=== PATIENT | female | born 1940 | race Caucasian/White ===

== ENCOUNTER 2016-09-20 14:08 | Inpatient (IN) | payer OTHER ==
[~2016-09-20] VITALS: Ht 152.4 cm; Wt 59.9 kg
[2016-09-20] MEDS ORDERED: METHYLPREDNISOLONE 125 MG VIAL IV STA (14:28)
[2016-09-20] MEDS ORDERED: DiphenhydrAMINE HCL 50 MG/ML VIAL IV STA (14:28)
--- NOTE | 2016-09-20 14:33 | EMERGENCY ROOM VISIT NOTE ---
History Report prepared by Megan: Azeem Amezcua Under the Supervision of: Dr. Brennon Talley D.O. First contact with patient: 14:17 Chief Complaint: PAIN (GENERALIZED) Stated Complaint: LEGS SWELLING, WHOLE BODY PAIN History of Present Illness The patient is a 76 year old female who presents to the Emergency Room with complaints of worsening swelling of her lower extremities throughout the week. The patient has had swelling of the extremities for a while which started worsening this week. She is also concerned over a "lump" on the right side of her abdomen. She has been experiencing generalized body aches and nausea. She has been vomiting up what she describes as saliva. She has occasionally stabbing chest pains and coughing. The patient denies shortness of breath, black or bloody stools. The patient was seen by a home health nurse who recommended that she come to the ED. The patient has a history of alcoholic cirrhosis. She stopped drinking last October after becoming symptomatic and vomiting blood. Source of History: patient Onset: this week Position: leg (bilateral) Quality: other (swelling) Timing: worsening Associated Symptoms: + chest pain, + cough, + nausea, + vomiting, No SOB, No hematochezia, No melena Review of Systems See HPI for pertinent positives & negatives. A total of 10 systems reviewed and were otherwise negative. Past Medical & Surgical Medical Problems: (1) Abdominal mass (2) Chest pain (3) Decompensated hepatic cirrhosis (4) Leg edema, left (5) Severe aortic stenosis (6) SOB (shortness of breath) Family History No pertinent family history Social History Smoking Status: Former Smoker Alcohol Use: other (former heavy drinker) Housing Status: lives with family Current/Historical Medications Scheduled Atorvastatin (Lipitor), 20 MG PO HS Folic Acid (Folvite), 1 MG PO DAILY Furosemide (Lasix), 80 MG PO BID Lactulose (Chronulac), 30 ML PO TID Spironolactone (Aldactone), 100 MG PO BID Allergies Coded Allergies: Adhesives (Unverified Allergy, Intermediate, ITCHY, 09/20/16) Iodine (Verified Allergy, Unknown, ., 09/20/16) Milk (Verified Allergy, Unknown, ., 09/20/16) Physical Exam Vital Signs Date Time Temp Pulse Resp B/P Pulse Ox O2 Delivery O2 Flow Rate FiO2 09/20/16 20:42 36.9 90 18 114/56 Room Air 09/20/16 20:36 85 18 114/56 95 09/20/16 20:29 36.9 90 20 121/62 09/20/16 19:48 94 09/20/16 19:45 98 20 09/20/16 19:15 97 21 09/20/16 18:46 90 20 121/62 96 Room Air 09/20/16 18:45 94 16 96 09/20/16 17:30 94 20 115/57 96 Room Air 09/20/16 16:28 99 18 121/52 98 Room Air 09/20/16 15:33 98 09/20/16 14:11 36.9 101 18 119/52 99 Room Air Physical Exam GENERAL: Patient is awake, alert, anxious and uncomfortable appearing. EYES: Scleral icterus noted bilaterally. The pupils are equal round and reactive to light. Extraocular muscles are intact. EARS, NOSE, MOUTH AND THROAT: The nose is without any evidence of any deformity. Mucous membranes are dry tongue is midline NECK: The neck is nontender and supple. RESPIRATORY: Diminished breath sounds at the left base, no tachypnea or conversational dyspnea. CARDIOVASCULAR: Regular rate and rhythm noted there no murmurs rubs or gallops normal S1 normal S2 GASTROINTESTINAL: The abdomen is moderately distended, significant hepatomegaly noted to palpation, tenderness in the right upper quadrant with palpation. Rectal exam revealed brown stool which was trace heme positive MUSCULOSKELETAL/EXTREMITIES: There is no evidence of gross deformity full range of motion is noted in the hips and shoulders SKIN: Jaundice was noted. Significant bilateral lower extremity edema with venous stasis changes noted. NEUROLOGIC: Patient is awake alert and oriented x3. Medical Decision & Procedures ER Provider Diagnostic Interpretation: Radiology results as stated below per my review and radiologist interpretation: ABDOMEN AND PELVIS CT WITH IV AND ORAL CONTRAST CT DOSE: 744.73 mGycm HISTORY: Pain sent by PCP for CT, patient will be pretreated TECHNIQUE: Multiaxial CT images of the abdomen and pelvis were performed following the use of intravenous and oral contrast. COMPARISON STUDY: 07/14/2015 FINDINGS: Lung bases are clear. Cirrhotic liver. Mild splenomegaly area in mild progressive ascites. Probable distended gallbladder. Nonobstructive bowel pattern. Bladder is midline. Mild body wall anasarca area IMPRESSION: 1. Hepatic cirrhosis. 2. Mild splenomegaly. 3. Moderate gallbladder distention. 4. Ascites. 5. Anasarca Electronically signed by: Lance Chavez M.D. 09/20/2016 5:55 PM Dictated Date/Time: 09/20/2016 5:51 PM CHEST ONE VIEW PORTABLE CLINICAL HISTORY: Pain, rating to the abdomen. Cough. COMPARISON STUDY: 07/14/2015 FINDINGS: The heart is borderline enlarged. There is an aortic root stent. There is interstitial thickening. There are equivocal left perihilar airspace opacities. A minimal pneumonitis not be excluded. Radiographic follow-up is recommended. There are no pleural effusions. There is an old right rib fracture.[ IMPRESSION: 1. Cardiomegaly and mild interstitial thickening 2. Equivocal left perihilar airspace opacities. Electronically signed by: Noah Kent M.D. 09/20/2016 2:53 PM Dictated Date/Time: 09/20/2016 2:51 PM Laboratory Results 09/20/16 14:50 Red Blood Count 2.09, Mean Corpuscular Volume 101.4, Mean Corpuscular Hemoglobin 35.4, Mean Corpuscular Hemoglobin Concent 34.9, Mean Platelet Volume 11.4, Neutrophils (%) (Auto) 59.5, Lymphocytes (%) (Auto) 13.5, Monocytes (%) ( Auto) 24.5, Eosinophils (%) (Auto) 0.7, Basophils (%) (Auto) 1.2, Neutrophils # (Auto) 5.84, Lymphocytes # (Auto) 1.33, Monocytes # (Auto) 2.41, Eosinophils # ( Auto) 0.07, Basophils # (Auto) 0.12 09/20/16 14:50 Test 09/20/16 14:50 White Blood Count 9.83 K/uL (4.8-10.8) Red Blood Count 2.09 M/uL (4.2-5.4) Hemoglobin 7.4 g/dL (12.0-16.0) Hematocrit 21.2 % (37-47) Mean Corpuscular Volume 101.4 fL (80-100) Mean Corpuscular Hemoglobin 35.4 pg (25-34) Mean Corpuscular Hemoglobin Concent 34.9 g/dl (32-36) Platelet Count 193 K/uL (130-400) Mean Platelet Volume 11.4 fL (7.4-10.4) Neutrophils (%) (Auto) 59.5 % Lymphocytes (%) (Auto) 13.5 % Monocytes (%) (Auto) 24.5 % Eosinophils (%) (Auto) 0.7 % Basophils (%) (Auto) 1.2 % Neutrophils # (Auto) 5.84 K/uL (1.4-6.5) Lymphocytes # (Auto) 1.33 K/uL (1.2-3.4) Monocytes # (Auto) 2.41 K/uL (0.11-0.59) Eosinophils # (Auto) 0.07 K/uL (0-0.5) Basophils # (Auto) 0.12 K/uL (0-0.2) RDW Standard Deviation 65.5 fL (36.4-46.3) RDW Coefficient of Variation 17.9 % (11.5-14.5) Immature Granulocyte % (Auto) 0.6 % Immature Granulocyte # (Auto) 0.06 K/uL (0.00-0.02) Polychromasia 1+ Echinocytes 1+ Acanthocytes 1+ Schistocytes 1+ Prothrombin Time 18.8 SECONDS (9.0-12.0) Prothromb Time International Ratio 1.7 (0.9-1.1) Activated Partial Thromboplast Time 38.1 SECONDS (21.0-31.0) Partial Thromboplastin Ratio 1.5 Anion Gap 10.0 mmol/L (3-11) Est Creatinine Clear Calc Drug Dose 45.3 ml/min Estimated GFR () 70.2 Estimated GFR (Non- 60.5 BUN/Creatinine Ratio 11.6 (10-20) Calcium Level 8.3 mg/dl (8.5-10.1) Total Bilirubin 13.7 mg/dl (0.2-1) Direct Bilirubin 4.7 mg/dl (0-0.2) Aspartate Amino Transf (AST/SGOT) 53 U/L (15-37) Alanine Aminotransferase (ALT/SGPT) 40 U/L (12-78) Alkaline Phosphatase 164 U/L (45-117) Ammonia 34.0 umol/L (11-32) Total Creatine Kinase 38 U/L (26-192) Creatine Kinase MB 1.0 ng/ml (0.5-3.6) Creatine Kinase MB Ratio 2.6 (0-3.0) Troponin I < 0.015 ng/ml (0-0.045) Total Protein 6.6 gm/dl (6.4-8.2) Albumin 3.1 gm/dl (3.4-5.0) Lipase 529 U/L (73-393) Laboratory results per my review. Medications Administered Medications (Trade) Dose Ordered Sig/Hernandez Route Start Time Stop Time Status Last Admin Dose Admin Methylprednisolone Sodium Succinate (Solu-Medrol IV) 125 mg NOW STAT IV 09/20/16 14:28 09/20/16 14:29 DC 09/20/16 17:21 125 MG Diphenhydramine HCl (Benadryl Inj) 25 mg NOW STAT IV 09/20/16 14:28 09/20/16 14:29 DC 09/20/16 17:21 25 MG Potassium Chloride (Klor-Con M10) 40 meq NOW STAT PO 09/20/16 19:27 09/20/16 19:31 DC 09/20/16 20:28 40 MEQ Furosemide (Lasix Inj) 40 mg NOW STAT IV 09/20/16 19:31 09/20/16 19:32 DC 09/20/16 20:28 40 MG Levofloxacin (Levaquin Tab) 750 mg NOW STAT PO 09/20/16 20:50 09/20/16 20:56 DC 09/20/16 21:25 750 MG ECG Indication: chest pain Rate (beats per minute): 98 Rhythm: normal sinus Findings: LBBB, no ectopy Comparison ECG Date: 2015 Change: no significant change ED Course 1420: The patient was evaluated in room B11b. A complete history and physical examination were performed. 1428: Benadryl 25 mg IV, Solu-Medrol 125 mg IV. 1913: [facility] the [facility] [place] The [facility] will be evaluated. 1919: Updated the patient. Medical Decision Prior records/ancillary studies reviewed. Triage Nursing notes reviewed. Additional history obtained from . The patient's history was concerning for abdominal pain. Differential diagnosis: Etiologies such as appendicitis, diverticulitis, PUD, biliary pathology, UTI, pancreatitis, obstruction, mesenteric ischemia, aortic pathology, infections, inflammatory bowel disease, renal colic, as well as others were entertained. The patient is a 76-year-old female who has a history of alcoholic cirrhosis and ascites who presented to the emergency department for evaluation of anasarca and right upper quadrant abdominal pain. The patient was treated with Solu-Medrol and Benadryl for her iodine allergy prior to the CAT scan. I discussed the patient's laboratory radiographic studies with her. I also discussed her case with her significant other's well. Because of the findings on CAT scan as well as the patient's abnormal laboratory studies and anemia I discussed her case with the on-call [facility] hospitalist. They've agreed to evaluate the patient in the emergency department for further management and disposition. Consults Time Called: 1904 Consulting Physician[facility] Returned Call: 1913 1913: [facility] The patient will be evaluated. Impression Primary Impression: Anasarca Additional Impressions: RUQ abdominal pain Cirrhosis Anemia Hyperbilirubinemia Scribe Attestation The scribe's documentation has been prepared under my direction and personally reviewed by me in its entirety. I confirm that the note above accurately reflects all work, treatment, procedures, and medical decision making performed by me. Departure Information Dispostion Being Evaluated By Hospitalist Referrals Britta Portillo,C.R.N.P. (PCP) Patient Instructions My [facility] Problem Qualifiers Additional Impressions: Cirrhosis Hepatic cirrhosis type: alcoholic cirrhosis Ascites presence: with ascites Qualified Codes: K70.31 - Alcoholic cirrhosis of liver with ascites
[2016-09-20] MEDS ORDERED: FOLI1TAB7 PO (14:44)
[2016-09-20] MEDS ORDERED: FURO80TA63 PO (14:44)
[2016-09-20] MEDS ORDERED: SPIR100T PO (14:44)
[2016-09-20] MEDS ORDERED: ATOR-22 PO (14:44)
[2016-09-20] MEDS ORDERED: LACT10SO17 PO (14:44)
--- NOTE | 2016-09-20 14:55 | DIAGNOSTIC IMAGING REPORT ---
CHEST ONE VIEW PORTABLE CLINICAL HISTORY: Pain, rating to the abdomen. Cough. COMPARISON STUDY: 07/14/2015 FINDINGS: The heart is borderline enlarged. There is an aortic root stent. There is interstitial thickening. There are equivocal left perihilar airspace opacities. A minimal pneumonitis not be excluded. Radiographic follow-up is recommended. There are no pleural effusions. There is an old right rib fracture.[ IMPRESSION: 1. Cardiomegaly and mild interstitial thickening 2. Equivocal left perihilar airspace opacities. Electronically signed by: Noah Kent M.D. 09/20/2016 2:53 PM Dictated Date/Time: 09/20/2016 2:51 PM
[2016-09-20 15:04] LABS: BASO % 1.2 %; BASO ABS # 0.12 K/uL (0-0.2); EOS % 0.7 %; HEMATOCRIT 21.2 % (37-47); IG% 0.6 %; LYMPH % 13.5 %; LYMPH ABS # 1.33 K/uL (1.2-3.4); MEAN CELL VOLUME 101.4 fL (80-100); MEAN CORPUSCULAR HEMOGLOBIN 35.4 pg (25-34); MEAN CORPUSCULAR HGB CONC 34.9 g/dl (32-36); MEAN PLATELET VOLUME 11.4 fL (7.4-10.4); MONO % 24.5 %; NEUT % 59.5 %; PLATELET COUNT 193 K/uL (130-400); RED BLOOD COUNT 2.09 M/uL (4.2-5.4); WHITE BLOOD COUNT 9.83 K/uL (4.8-10.8)
[2016-09-20 15:15] LABS: INR 1.7 (0.9-1.1); PARTIAL THROMBOPLASTIN RATIO 1.5; PROTHROMBIN TIME (PATIENT) 18.8 SECONDS (9.0-12.0)
[2016-09-20] MEDS ORDERED: OPTIRAY 320 IV PRN (15:15)
[2016-09-20 15:29] LABS: ACANTHOCYTES 1+; COMPLETE YES; ECHINOCYTES 1+; POLYCHROMASIA 1+; SCHISTOCYTES 1+
[2016-09-20 15:39] LABS: ALT/SGPT 40 U/L (12-78); AST/SGOT 53 U/L (15-37); BLOOD UREA NITROGEN 11 mg/dl (7-18); BUN/CREATININE RATIO 11.6 (10-20); CALCIUM 8.3 mg/dl (8.5-10.1); CARBON DIOXIDE 25 mmol/L (21-32); CHLORIDE 94 mmol/L (98-107); CREATININE 0.93 mg/dl (0.60-1.20); GLUCOSE 154 mg/dl (70-99); POTASSIUM 3.6 mmol/L (3.5-5.1); SODIUM 129 mmol/L (136-145)
[2016-09-20 15:40] LABS: ALKALINE PHOSPHATASE 164 U/L (45-117); CKMB/CK RATIO 2.6 (0-3.0)
[2016-09-20] MEDS ORDERED: METHYLPREDNISOLONE 125 MG VIAL ONE (17:25)
[2016-09-20] MEDS ORDERED: DiphenhydrAMINE HCL 50 MG/ML VIAL ONE (17:25)
--- NOTE | 2016-09-20 17:58 | DIAGNOSTIC IMAGING REPORT ---
ABDOMEN AND PELVIS CT WITH IV AND ORAL CONTRAST CT DOSE: 744.73 mGycm HISTORY: Pain sent by PCP for CT, patient will be pretreated TECHNIQUE: Multiaxial CT images of the abdomen and pelvis were performed following the use of intravenous and oral contrast. COMPARISON STUDY: 07/14/2015 FINDINGS: Lung bases are clear. Cirrhotic liver. Mild splenomegaly area in mild progressive ascites. Probable distended gallbladder. Nonobstructive bowel pattern. Bladder is midline. Mild body wall anasarca area IMPRESSION: 1. Hepatic cirrhosis. 2. Mild splenomegaly. 3. Moderate gallbladder distention. 4. Ascites. 5. Anasarca Electronically signed by: Lance Chavez M.D. 09/20/2016 5:55 PM Dictated Date/Time: 09/20/2016 5:51 PM
[2016-09-20] MEDS ORDERED: FUROSEMIDE INJ 40 MG in SYRINGE 0 ML IV STA ×2 (19:26→21:40)
[2016-09-20] MEDS ORDERED: POTASSIUM CHLORIDE 10 MEQ TABCR PO STA (19:27)
[2016-09-20] MEDS ORDERED: FUROSEMIDE 40 MG/4 ML VIAL IV STA (19:31)
[2016-09-20 20:29] VITALS: BP 121/62; PULSE 90; TEMP 36.9; BMI 28.8
[2016-09-20 20:42] VITALS: BP 114/56; PULSE 90; TEMP 36.9; Ht 152.4 cm; Wt 59.9 kg
[2016-09-20] MEDS ORDERED: LEVOFLOXACIN CONSULT ACTIVE PRN (20:45)
[2016-09-20] MEDS ORDERED: ACETAMINOPHEN 325 MG TAB PO PRN (20:45)
[2016-09-20] MEDS ORDERED: LEVOFLOXACIN 750 MG TAB PO STA (20:50)
[2016-09-20 21:11] VITALS: BP 113/56; PULSE 88; TEMP 37; O2SAT 96
[2016-09-20] MEDS ORDERED: FUROSEMIDE 80 MG TAB PO ONE (21:29)
[2016-09-20] MEDS ORDERED: LACTULOSE SYRUP 30 GM/45 ML UDP PO ONE (21:29)
[2016-09-20] MEDS ORDERED: MoRPHine SULFATE 4 MG/ML 1 ML CARP\\VIAL IV PRN (21:30)
[2016-09-20] MEDS ORDERED: LORAZEPAM 2 MG/ML 1 ML VIAL IV PRN (21:30)
[2016-09-20] MEDS ORDERED: TRAMADOL HCL 50 MG TAB PO PRN (21:30)
[2016-09-20] MEDS ORDERED: ONDANSETRON INJ 2 MG/ML 2 ML VIAL IV PRN (21:30)
[2016-09-20] MEDS ORDERED: POTASSIUM CHLORIDE 10 MEQ TABCR PO ONE (22:00)
[2016-09-20] MEDS ORDERED: THIAMINE HCL INJ 100 MG in SYRINGE 9 ML IV STA (22:45)
[2016-09-20] MEDS ORDERED: THIAMINE HCL 100 MG/ML 2 ML VIAL IV ONE (22:45)
[2016-09-21 00:24] VITALS: BP 112/56; PULSE 91; TEMP 36.5; O2SAT 97
--- NOTE | 2016-09-21 01:22 | DIAGNOSTIC IMAGING REPORT ---
ULTRASOUND BILATERAL LOWER EXTREMITY VENOUS CLINICAL HISTORY: Leg swelling. COMPARISON STUDY: Bilateral lower extremity venous ultrasound dated 07/14/2015. TECHNIQUE: Real-time, grayscale, and color Doppler sonography of the deep veins of the right and left lower extremity was performed from the inguinal crease to the calf. Compression and augmentation were utilized. FINDINGS: There is no sonographic evidence of deep venous thrombosis identified in the right or left lower extremity. The common femoral, superficial femoral, and popliteal veins are patent and normally compressible bilaterally. The greater saphenous vein and the profunda femoris vein at the junction with the common femoral vein are clear in both legs. The visualized calf veins are patent bilaterally. Soft tissue edema is present in both legs. IMPRESSION: There is no sonographic evidence of deep venous thrombosis identified in the right or left lower extremity. Electronically signed by: Don Abel M.D. 09/21/2016 1:20 AM Dictated Date/Time: 09/21/2016 1:19 AM
--- NOTE | 2016-09-21 01:29 | HISTORY & PHYSICAL EXAMINATION ---
DATE OF ADMISSION: 09/20/2016 PRIMARY CARE PHYSICIAN: Miss Callejas FABI Portillo of [facility]. Hx obtained from px and records. CHIEF COMPLAINT: Abdominal pain, distention, and leg swelling. HISTORY OF PRESENT ILLNESS: Medical history significant for alcoholic cirrhosis, chronic anemia (baseline hemoglobin of 7), chronic diastolic heart failure, EF of 70% (2017). history of chronic left bundle-branch block, past tobacco abuse, sp TAVR. History of esophageal varices per records. Recent confinement at [facility] last 08/2015 for alcoholic cirrhosis, alcohol withdrawal, severe , and heart failure. Patient subsequently transferred to [facility]. Subsequently underwent TAVR. Recent confinement at [facility] last month for hypotension, decompensated cirrhosis, renal failure. Subsequently discharged to [facility] for rehab. As per note, the patient noncompliant at rehab facility. Refused blood transfusion, etc. Deemed competent by psychiatry. Patient has been home the last 2 weeks with home health services. She had a followup with her PCP last on 09/10/2016. Patient complaining of leg swelling, worse as the day goes on. Claims to be compliant with medications and abstinent from alcohol. As per note, the patient declined lab work. Last week, increased swelling of the lower extremities with shooting pain, increased abdominal distention and pain, more on the right, some aches, no fever, some chills. No chest pain, no shortness of breath. Cough symptoms productive of clear sputum of one day duration. Denies aspiration. Denies emesis, black/bloody stools. Home health nurse sent her to the Emergency Room. Patient claims "she was told to drink a lot of water by people." Could be drinking more than 2 liters a day. MEDICAL HISTORY: As above. EGD from 11/2015 showed esophageal varices, portal hypertensive gastropathy, hiatal hernia. SURGERIES: Hysterectomy, section, TAVR HOME MEDICATIONS: Include Lipitor, Folvite, Lasix, lactulose, Aldactone. ALLERGIES: TO IODINE, MILK. FAMILY HISTORY: Heart disease. PERSONAL AND SOCIAL HISTORY: Past tobacco abuse. Has not been drinking in months. REVIEW OF SYSTEMS: As per HPI, all other ROS negative. PHYSICAL EXAMINATION: VITAL SIGNS: Blood pressure was noted to be 121/50, pulse rate 99, RR 18, temperature 36.9, sats 96 on room air. GENERAL: Noted to be chronically ill. No respiratory distress. Anxious. SKIN: Pallor. HEENT: Pale palpebral conjunctivae. Dry mucosa. NECK: No JVD. Supple. CHEST: Decreased breath sounds. HEART: Systolic murmur. ABDOMEN: distension. Some tenderness on the right. fluid wave EXTREMITIES: Bilateral LE edema. some tenderness NEUROLOGIC: No gross focality. LABORATORY DATA: Hemoglobin was noted to be 7.4, hematocrit 21.2, white cell count 9.8, platelets 193. Sodium 129, potassium 3.6, chloride 94, CO2 25, BUN 11, creatinine 0.9, glucose 164. Total bilirubin 13.7, direct bilirubin 4.7, alkaline phosphatase 164. Ammonia was 34. Chest x-ray, some congestion. CT abdomen and pelvis showed hepatic cirrhosis, splenomegaly, gallbladder distention, ascites, anasarca. EKG, left bundle-branch block. Hemoccult done in the ER was positive. ASSESSMENT: 1. Decompensated cirrhosis hx ETOH cirrhosis px claims she was told by providers to drink plenty of fluids claims to be compliant w/ ETOH abstinence and home diuretic regimen 2. Painful ascites, possible spontaneous bacterial peritonitis, no sepsis. 3. duane leg swelling secondary to chronic liver disease rule out deep vein thrombosis. 4. Chronic anemia, occult gastrointestinal bleed history of esophageal varices hemoglobin at baseline. 5. Past tobacco and alcohol abuse. 6. History of aortic stenosis sp TAVR 7. Hx chronic diastolic HF, pulm congestion on CXR 2 anasarca 2 to liver dse 8. chronic LBBB 9. hyponatremia 2 to cirrhosis. PLAN: GMF continue diuretic therapy. Initial fluid restriction at 2L. Diagnostic and therapeutic paracentesis. Levaquin for possible SBP for now (Cefotaxime not available.) GI consult RE decompensated cirrhosis, ascites. ff sodium, hyponatremia banda, may need Nephrology eval if w/ worsening DVT prophylaxis, SCDs RE occult GI bleed. Full code. Patient requests to follow up with a new primary care provider at [facility] upon discharge. MTDD
[2016-09-21 06:19] LABS: BASO % 0.2 %; BASO ABS # 0.01 K/uL (0-0.2); HEMATOCRIT 21.6 % (37-47); IG% 0.8 %; LYMPH % 11.4 %; LYMPH ABS # 0.56 K/uL (1.2-3.4); MEAN CELL VOLUME 101.4 fL (80-100); MEAN CORPUSCULAR HEMOGLOBIN 35.2 pg (25-34); MEAN CORPUSCULAR HGB CONC 34.7 g/dl (32-36); MEAN PLATELET VOLUME 11.7 fL (7.4-10.4); MONO % 4.9 %; NEUT % 82.7 %; PLATELET COUNT 182 K/uL (130-400); RED BLOOD COUNT 2.13 M/uL (4.2-5.4); WHITE BLOOD COUNT 4.93 K/uL (4.8-10.8)
[2016-09-21 06:54] LABS: URINE APPEARANCE CLEAR (CLEAR); URINE BILIRUBIN NEG (NEG); URINE COLOR DK YELLOW; URINE NITRITE NEG (NEG); URINE SPECIFIC GRAVITY 1.021 (1.000-1.030); UROBILINOGEN NEG (NEG); ZZUR CULT IF INDIC CLEAN CATCH NO
[2016-09-21 06:59] LABS: CALCIUM 8.7 mg/dl (8.5-10.1); CREATININE 0.88 mg/dl (0.60-1.20); POTASSIUM 4.1 mmol/L (3.5-5.1)
[2016-09-21 06:59] LABS: MANUAL MICROSCOPIC REQUIRED? NO; REVIEW REQ? NO
[2016-09-21 07:14] LABS: ACANTHOCYTES 2+; COMPLETE YES
[2016-09-21 07:21] VITALS: BP 117/61; PULSE 91; TEMP 36.3; O2SAT 96
[2016-09-21] MEDS: MULTIVITAMIN TAB PO SCH (08:17)
[2016-09-21] MEDS: THIAMINE HCL 100 MG TAB PO SCH (08:17)
[2016-09-21] MEDS: LACTULOSE SYRUP 30 GM/45 ML UDP PO SCH ×3 (08:18→21:00)
[2016-09-21] MEDS: PANTOprazole SOD 40 MG TAB PO SCH (08:18)
[2016-09-21] MEDS: POTASSIUM CHLORIDE 10 MEQ TABCR PO SCH (08:19)
[2016-09-21] MEDS ORDERED: FUROSEMIDE 80 MG TAB PO SCH (09:00)
[2016-09-21] MEDS ORDERED: SPIRONOLACTONE 100 MG TAB PO SCH (09:00)
--- NOTE | 2016-09-21 14:35 | Medical Consult ---
Consultation Note Date of Service Sep 21, 2016. Consultation Note Reason for consult: Cirrhosis, volume overload HISTORY OF PRESENT ILLNESS: 76 yo female with alcoholic cirrhosis (complicated by vol overload on diuretics s/p tap x 2 per her reort; h/o varices without h/o VB, no h/o HE), h/o s/p TAVR , diastolic CHF s/p recent admission a [facility] for "decompensated cirrhosis," now admit from rehab for worsening volume overload. Pt reports recent weight gain of 10 lbs in the past 2 weeks. She reports persistent slowly progressive pedal edema and abd distention. She reports compliance with her meds, although she sometimes refussu lab work. SHe is not compliant with low Na diet. She denies abd pain to me. She denies orthopnea to me. MEDICAL HISTORY: As above. EGD from 11/2015 showed esophageal varices, portal hypertensive gastropathy, hiatal hernia. SURGERIES: Hysterectomy, section, TAVR HOME MEDICATIONS: Include Lipitor, Folvite, Lasix, lactulose, Aldactone. ALLERGIES: TO IODINE, MILK. FAMILY HISTORY: Heart disease. PERSONAL AND SOCIAL HISTORY: Past tobacco abuse. Has not been drinking in months. REVIEW OF SYSTEMS: As per HPI, all other ROS negative. PHYSICAL EXAMINATION: Date Time Temp Pulse Resp B/P Pulse Ox O2 Delivery O2 Flow Rate FiO2 09/21/16 08:30 Room Air 09/21/16 07:21 36.3 91 16 117/61 96 09/21/16 00:24 36.5 91 20 112/56 97 Room Air 09/21/16 00:00 Room Air 09/20/16 21:11 37.0 88 20 113/56 96 Room Air 09/20/16 20:42 36.9 90 18 114/56 Room Air 09/20/16 20:36 85 18 114/56 95 09/20/16 20:29 36.9 90 20 121/62 09/20/16 19:48 94 09/20/16 19:45 98 20 09/20/16 19:15 97 21 09/20/16 18:46 90 20 121/62 96 Room Air 09/20/16 18:45 94 16 96 09/20/16 17:30 94 20 115/57 96 Room Air 09/20/16 16:28 99 18 121/52 98 Room Air 09/20/16 15:33 98 Appears comfortable, eating lunch. SKIN: + jaundice. HEENT: + mildly icteric sclera. Moist. NECK: No JVD. Supple. CHEST: Decreased breath sounds. HEART: Systolic murmur. RR ABDOMEN: Abd is mod distended but still soft, with central tympany and flank dullness. + spleen tip. + caput. + everted umbilical hernia. EXTREMITIES: Marked Bilateral LE edema with R leg greater than L leg NEUROLOGIC: No gross focality. Mild tremor. No asterixis. LABORATORY DATA: Last 24 Hours Test 09/20/16 14:50 09/21/16 00:54 09/21/16 05:37 09/21/16 06:30 White Blood Count 9.83 K/uL 4.93 K/uL Red Blood Count 2.09 M/uL 2.13 M/uL Hemoglobin 7.4 g/dL 7.5 g/dL Hematocrit 21.2 % 21.6 % Mean Corpuscular Volume 101.4 fL 101.4 fL Mean Corpuscular Hemoglobin 35.4 pg 35.2 pg Mean Corpuscular Hemoglobin Concent 34.9 g/dl 34.7 g/dl Platelet Count 193 K/uL 182 K/uL Mean Platelet Volume 11.4 fL 11.7 fL Neutrophils (%) (Auto) 59.5 % 82.7 % Lymphocytes (%) (Auto) 13.5 % 11.4 % Monocytes (%) (Auto) 24.5 % 4.9 % Eosinophils (%) (Auto) 0.7 % 0.0 % Basophils (%) (Auto) 1.2 % 0.2 % Neutrophils # (Auto) 5.84 K/uL 4.08 K/uL Lymphocytes # (Auto) 1.33 K/uL 0.56 K/uL Monocytes # (Auto) 2.41 K/uL 0.24 K/uL Eosinophils # (Auto) 0.07 K/uL 0.00 K/uL Basophils # (Auto) 0.12 K/uL 0.01 K/uL RDW Standard Deviation 65.5 fL 62.6 fL RDW Coefficient of Variation 17.9 % 17.5 % Immature Granulocyte % (Auto) 0.6 % 0.8 % Immature Granulocyte # (Auto) 0.06 K/uL 0.04 K/uL Polychromasia 1+ Echinocytes 1+ Acanthocytes 1+ 2+ Schistocytes 1+ Prothrombin Time 18.8 SECONDS Prothromb Time International Ratio 1.7 Activated Partial Thromboplast Time 38.1 SECONDS Partial Thromboplastin Ratio 1.5 Sodium Level 129 mmol/L 130 mmol/L 130 mmol/L Potassium Level 3.6 mmol/L 4.1 mmol/L Chloride Level 94 mmol/L 95 mmol/L Carbon Dioxide Level 25 mmol/L 25 mmol/L Anion Gap 10.0 mmol/L 10.0 mmol/L Blood Urea Nitrogen 11 mg/dl 12 mg/dl Creatinine 0.93 mg/dl 0.88 mg/dl Est Creatinine Clear Calc Drug Dose 45.3 ml/min 47.9 ml/min Estimated GFR () 70.2 75.0 Estimated GFR (Non- 60.5 64.7 BUN/Creatinine Ratio 11.6 14.0 Random Glucose 154 mg/dl 161 mg/dl Calcium Level 8.3 mg/dl 8.7 mg/dl Total Bilirubin 13.7 mg/dl 13.1 mg/dl Direct Bilirubin 4.7 mg/dl 4.7 mg/dl Aspartate Amino Transf (AST/SGOT) 53 U/L 48 U/L Alanine Aminotransferase (ALT/SGPT) 40 U/L 38 U/L Alkaline Phosphatase 164 U/L 146 U/L Ammonia 34.0 umol/L Total Creatine Kinase 38 U/L Creatine Kinase MB 1.0 ng/ml Creatine Kinase MB Ratio 2.6 Troponin I < 0.015 ng/ml Total Protein 6.6 gm/dl 6.5 gm/dl Albumin 3.1 gm/dl 2.9 gm/dl Lipase 529 U/L 438 U/L Osmolality 275 mOsm/kg Ethyl Alcohol mg/dL < 3.0 mg/dl Urine Color DK YELLOW Urine Appearance CLEAR Urine pH 5.0 Urine Specific [place] 1.021 Urine Protein NEG Urine Glucose (UA) NEG Urine Ketones NEG Urine Occult Blood NEG Urine Nitrite NEG Urine Bilirubin NEG Urine Urobilinogen NEG Urine Leukocyte Esterase NEG Urine Osmolality 341 mOms/kg Urine Random Sodium 39 mEq/L Chest x-ray, some congestion. CT abdomen and pelvis showed hepatic cirrhosis, splenomegaly, gallbladder distention, ascites, anasarca. EKG, left bundle-branch block. ASSESSMENT: Cirrhosis, volume overload - She likely has volume overload in part related to her cirrhosis; diastolic heart failure and chronic venous stasis may also contribute to her leg edema. I presume that she has been w/u for nephrosis previously, and CT on admission shows no evidence of PVT or HCC. - Plan for LVP on Friday. Please increase diuretics to lasix 140/40 and aldactone to 300 mg. Would anticipate d/c home post paracentesis. -
[2016-09-21] MEDS ORDERED: COUGH DROP (SUGAR FREE) LOZ 24 LOZ/1 BOX ONE (15:11)
[2016-09-21 15:57] VITALS: BP 121/57; PULSE 93; TEMP 36.3; O2SAT 97
--- NOTE | 2016-09-21 15:59 | Progress Note ---
Medicine Progress Note Date & Time of Visit: Sep 21, 2016 at 15:44. Subjective Patient seen and examined. Notes worsening abdominal distension and leg edema. Reports compliance with her outpatient medications, for the most part. Will occasionally miss a 3pm dose of her diuretic, but not frequently. Last use of alcohol was in November 2015. Denies confusion, fevers. Occasional, intermittent episodes of abdominal pain. Objective Last 8 Hrs Date Time Temp Pulse Resp B/P Pulse Ox O2 Delivery O2 Flow Rate FiO2 09/21/16 08:30 Room Air Physical Exam: General-awake; alert; NAD Eyes-EOMI; +scleral icterus Neck-no stridor; trachea midline Lungs-+rhonchi; no crackles Heart-RRR; +murmur Abdomen-soft; distended; NT; nBS Extremities-2+ pitting edema bilaterally; no deformity Neuro-no asterixis Laboratory Results: Last 24 Hours Test 09/21/16 00:54 09/21/16 05:37 09/21/16 06:30 Sodium Level 130 mmol/L 130 mmol/L Osmolality 275 mOsm/kg Ethyl Alcohol mg/dL < 3.0 mg/dl White Blood Count 4.93 K/uL Red Blood Count 2.13 M/uL Hemoglobin 7.5 g/dL Hematocrit 21.6 % Mean Corpuscular Volume 101.4 fL Mean Corpuscular Hemoglobin 35.2 pg Mean Corpuscular Hemoglobin Concent 34.7 g/dl Platelet Count 182 K/uL Mean Platelet Volume 11.7 fL Neutrophils (%) (Auto) 82.7 % Lymphocytes (%) (Auto) 11.4 % Monocytes (%) (Auto) 4.9 % Eosinophils (%) (Auto) 0.0 % Basophils (%) (Auto) 0.2 % Neutrophils # (Auto) 4.08 K/uL Lymphocytes # (Auto) 0.56 K/uL Monocytes # (Auto) 0.24 K/uL Eosinophils # (Auto) 0.00 K/uL Basophils # (Auto) 0.01 K/uL RDW Standard Deviation 62.6 fL RDW Coefficient of Variation 17.5 % Immature Granulocyte % (Auto) 0.8 % Immature Granulocyte # (Auto) 0.04 K/uL Acanthocytes 2+ Potassium Level 4.1 mmol/L Chloride Level 95 mmol/L Carbon Dioxide Level 25 mmol/L Anion Gap 10.0 mmol/L Blood Urea Nitrogen 12 mg/dl Creatinine 0.88 mg/dl Est Creatinine Clear Calc Drug Dose 47.9 ml/min Estimated GFR () 75.0 Estimated GFR (Non- 64.7 BUN/Creatinine Ratio 14.0 Random Glucose 161 mg/dl Calcium Level 8.7 mg/dl Total Bilirubin 13.1 mg/dl Direct Bilirubin 4.7 mg/dl Aspartate Amino Transf (AST/SGOT) 48 U/L Alanine Aminotransferase (ALT/SGPT) 38 U/L Alkaline Phosphatase 146 U/L Total Protein 6.5 gm/dl Albumin 2.9 gm/dl Lipase 438 U/L Urine Color DK YELLOW Urine Appearance CLEAR Urine pH 5.0 Urine Specific [place] 1.021 Urine Protein NEG Urine Glucose (UA) NEG Urine Ketones NEG Urine Occult Blood NEG Urine Nitrite NEG Urine Bilirubin NEG Urine Urobilinogen NEG Urine Leukocyte Esterase NEG Urine Osmolality 341 mOms/kg Urine Random Sodium 39 mEq/L Assessment & Plan Patient is a 76 y/o female with a h/o alcoholic cirrhosis who presents for evaluation of worsening ascites and edema. Alcoholic cirrhosis - GI consulted - given low clinical suspicion for SBP (patient denies abdominal pain, no confusion, afebrile, normal WBC count), discontinued levofloxacin - hold outpatient Lasix dose - start Lasix 40mg IV TID with 25% albumin BID - increase spironolactone to 150mg BID - plan for therapeutic paracentesis on Friday - continue MVI, thiamine and folate - continue lactulose Hyponatremia - 2/2 volume overload from decompensated cirrhosis - continue diuresis Anemia - likely anemia of chronic disease - Hgb stable in the 7's DVT prophylaxis with SCD's Consultants: Gastroenterology Current Inpatient Medications: Current Inpatient Medications Medications (Trade) Dose Ordered Sig/Hernandez Route Start Time Stop Time Status Last Admin Dose Admin Ioversol (Optiray 320) 111 ml UD PRN IV 09/20/16 15:15 09/24/16 15:14 Acetaminophen (Tylenol Tab) 325 mg Q6H PRN PO 09/20/16 20:45 10/20/16 20:44 Levofloxacin (Consult) 1 ea UD PRN N/A 09/20/16 20:45 10/20/16 20:44 Levofloxacin (Levaquin Tab) 750 mg Q2D@1100 PO 09/22/16 11:00 10/02/16 10:59 Atorvastatin Calcium (Lipitor Tab) 20 mg HS PO 09/21/16 21:00 10/21/16 20:59 Folic Acid (Folvite Tab) 1 mg DAILY PO 09/21/16 09:00 10/21/16 08:59 09/21/16 08:19 1 MG Furosemide (Lasix Tab) 80 mg BID17 PO 09/21/16 09:00 10/21/16 08:59 09/21/16 08:17 80 MG Lactulose (Chronulac Syrup) 30 gm TID PO 09/21/16 09:00 10/21/16 08:59 09/21/16 08:18 30 GM Spironolactone (Aldactone Tab) 100 mg BID17 PO 09/21/16 09:00 10/21/16 08:59 09/21/16 08:19 100 MG Lorazepam (Ativan Inj) 0.5 mg Q4H PRN IV 09/20/16 21:30 10/20/16 21:29 Tramadol HCl (Ultram Tab) 25 mg Q6H PRN PO 09/20/16 21:30 10/20/16 21:29 Ondansetron HCl (Zofran Inj) 4 mg Q6H PRN IV 09/20/16 21:30 10/20/16 21:29 Morphine Sulfate (MoRPHine SULFATE INJ) 4 mg Q3H PRN IV 09/20/16 21:30 10/04/16 21:29 Potassium Chloride (Klor-Con M10) 20 meq DAILY PO 09/21/16 09:00 10/21/16 08:59 09/21/16 08:19 20 MEQ Thiamine HCl (Vitamin B-1 Tab) 100 mg QAM PO 09/21/16 09:00 10/21/16 08:59 09/21/16 08:17 100 MG Multivitamins (Multivitamin Tab) 1 tab QAM PO 09/21/16 09:00 10/21/16 08:59 09/21/16 08:17 1 TAB Pantoprazole Sodium (Protonix Tab) 40 mg QAM PO 09/21/16 09:00 10/21/16 08:59 09/21/16 08:18 40 MG
[2016-09-21] MEDS ORDERED: NURSING DECISION MEDICATION ORDER SCH (16:00)
[2016-09-21] MEDS ORDERED: COUGH DROP (SUGAR FREE) LOZ 24 LOZ/1 BOX PO PRN (16:00)
[2016-09-21] MEDS: SPIRONOLACTONE 100 MG TAB PO SCH (17:26)
[2016-09-21] MEDS ORDERED: FUROSEMIDE INJ 40 MG in SYRINGE 0 ML IV SCH (21:00)
[2016-09-21] MEDS ORDERED: ATORVASTATIN 20 MG TAB PO SCH (21:00)
[2016-09-21 21:24] VITALS: BP 121/55; PULSE 91
[2016-09-21] MEDS: ALBUMIN HUMAN 25% 12.5 GM/50 ML VIAL IV SCH (21:24)
[2016-09-21 22:45] VITALS: BP 114/60; PULSE 93; TEMP 36.7; O2SAT 98
[2016-09-21] MEDS ORDERED: LORAZEPAM 0.5 MG TAB PO STA (22:55)
[2016-09-21 23:57] VITALS: BP 128/60; PULSE 93; TEMP 36.5; O2SAT 98
[2016-09-22] VITALS (11 sets, daily range): BP systolic 100–162; BP diastolic 46–91; PULSE 82–123; TEMP 36.2–37; O2SAT 95–98
[2016-09-22] MEDS ORDERED: LORAZEPAM 0.5 MG TAB PO STA (02:37)
--- NOTE | 2016-09-22 04:34 | Progress Note ---
Internal Med Progress Note Date of Service: Sep 22, 2016. Provider Documentation: Made aware by RN of increased restlessness, myalgia complaints, mood lability. initiate AWSS protocol Will relay to AM provider. Vital Signs: Date Time Temp Pulse Resp B/P Pulse Ox O2 Delivery O2 Flow Rate FiO2 09/22/16 07:00 37.0 110 18 123/54 96 Room Air 09/22/16 05:30 105 114/53 09/22/16 05:18 82 20 97 Room Air 09/22/16 04:59 Room Air 09/22/16 04:45 36.9 123 18 113/55 97 Room Air 09/22/16 00:00 Room Air 09/21/16 23:57 36.5 93 20 128/60 98 Room Air 09/21/16 22:45 36.7 93 114/60 98 Room Air 09/21/16 21:24 91 121/55 09/21/16 20:00 Room Air 09/21/16 16:17 Room Air 09/21/16 15:57 36.3 93 16 121/57 97 09/21/16 08:30 Room Air Lab Results: Results Past 24 Hours Test 09/22/16 06:20 Range/Units White Blood Count 13.78 4.8-10.8 K/uL Red Blood Count 2.08 4.2-5.4 M/uL Hemoglobin 7.3 12.0-16.0 g/dL Hematocrit 21.4 37-47 % Mean Corpuscular Volume 102.9 80-100 fL Mean Corpuscular Hemoglobin 35.1 25-34 pg Mean Corpuscular Hemoglobin Concent 34.1 32-36 g/dl RDW Standard Deviation 64.9 36.4-46.3 fL RDW Coefficient of Variation 17.7 11.5-14.5 % Platelet Count 192 130-400 K/uL Mean Platelet Volume 11.1 7.4-10.4 fL Sodium Level 133 136-145 mmol/L Potassium Level 4.1 3.5-5.1 mmol/L Chloride Level 98 98-107 mmol/L Carbon Dioxide Level 28 21-32 mmol/L Anion Gap 7.0 3-11 mmol/L Blood Urea Nitrogen 16 7-18 mg/dl Creatinine 0.92 0.60-1.20 mg/dl Est Creatinine Clear Calc Drug Dose 45.8 ml/min Estimated GFR () 71.1 Estimated GFR (Non- 61.3 BUN/Creatinine Ratio 17.8 10-20 Random Glucose 143 70-99 mg/dl Calcium Level 8.9 8.5-10.1 mg/dl Total Bilirubin 11.2 0.2-1 mg/dl Direct Bilirubin 4.5 0-0.2 mg/dl Aspartate Amino Transf (AST/SGOT) 48 15-37 U/L Alanine Aminotransferase (ALT/SGPT) 41 12-78 U/L Alkaline Phosphatase 218 45-117 U/L Total Protein 6.5 6.4-8.2 gm/dl Albumin 3.1 3.4-5.0 gm/dl
[2016-09-22] MEDS ORDERED: LORAZEPAM 2 MG/ML 1 ML VIAL IV PRN (04:45)
[2016-09-22] MEDS ORDERED: GABAPENTIN 600 MG TAB PO SCH ×2 (05:00→12:00)
[2016-09-22] MEDS ORDERED: LEVALBUTEROL/IPRATROPIUM NEB INH STA (05:01)
[2016-09-22] MEDS ORDERED: LEVALBUTEROL/IPRATROPIUM NEB INH PRN (05:15)
[2016-09-22] MEDS ORDERED: FUROSEMIDE INJ 40 MG in SYRINGE 0 ML IV STA (05:20)
[2016-09-22] MEDS ORDERED: IPRATROPIUM BROMIDE NEB SOLN 0.02% 2.5 ML VIAL INH STA (05:22)
[2016-09-22] MEDS ORDERED: LEVALBUTEROL 1.25MG/0.5ML NEB INH STA (05:22)
[2016-09-22] MEDS ORDERED: LORAZEPAM INJ 1 MG in SYRINGE 0.5 ML IV STA (05:23)
[2016-09-22] MEDS ORDERED: LEVALBUTEROL 1.25MG/0.5ML NEB INH PRN (05:30)
[2016-09-22] MEDS ORDERED: IPRATROPIUM BROMIDE NEB SOLN 0.02% 2.5 ML VIAL INH PRN (05:30)
[2016-09-22 06:55] LABS: HEMATOCRIT 21.4 % (37-47); MEAN CELL VOLUME 102.9 fL (80-100); MEAN CORPUSCULAR HEMOGLOBIN 35.1 pg (25-34); MEAN CORPUSCULAR HGB CONC 34.1 g/dl (32-36); MEAN PLATELET VOLUME 11.1 fL (7.4-10.4); PLATELET COUNT 192 K/uL (130-400); RED BLOOD COUNT 2.08 M/uL (4.2-5.4); WHITE BLOOD COUNT 13.78 K/uL (4.8-10.8)
[2016-09-22 07:27] LABS: BUN/CREATININE RATIO 17.8 (10-20); CALCIUM 8.9 mg/dl (8.5-10.1); CREATININE 0.92 mg/dl (0.60-1.20); POTASSIUM 4.1 mmol/L (3.5-5.1)
[2016-09-22] MEDS: MULTIVITAMIN TAB PO SCH (10:18)
[2016-09-22] MEDS: PANTOprazole SOD 40 MG TAB PO SCH (10:18)
[2016-09-22] MEDS: THIAMINE HCL 100 MG TAB PO SCH (10:19)
[2016-09-22] MEDS: POTASSIUM CHLORIDE 10 MEQ TABCR PO SCH (10:19)
[2016-09-22] MEDS: SPIRONOLACTONE 100 MG TAB PO SCH ×2 (10:19→18:32)
[2016-09-22] MEDS: LACTULOSE SYRUP 30 GM/45 ML UDP PO SCH ×3 (10:20→21:11)
[2016-09-22] MEDS: ALBUMIN HUMAN 25% 12.5 GM/50 ML VIAL IV SCH ×3 (10:43→21:49)
[2016-09-22] MEDS ORDERED: LEVOFLOXACIN 750 MG TAB PO SCH (11:00)
[2016-09-22] MEDS: FUROSEMIDE INJ 40 MG in SYRINGE 0 ML IV SCH ×2 (13:36→21:14)
--- NOTE | 2016-09-22 14:20 | Progress Note ---
Progress Note Date of Service Sep 22, 2016. Progress Note Events noted - pt had confusion last night, attrib to alcohol withdrawal, given Gabapentin and Ativan. She remains confused today, but is otherwise without complaint. Date Time Temp Pulse Resp B/P Pulse Ox O2 Delivery O2 Flow Rate FiO2 09/22/16 11:53 36.4 121 16 108/54 96 Room Air 09/22/16 11:00 36.2 116 16 103/53 95 Room Air 09/22/16 08:00 Room Air 09/22/16 07:00 37.0 110 18 123/54 96 Room Air 09/22/16 05:30 105 114/53 09/22/16 05:18 82 20 97 Room Air 09/22/16 04:59 Room Air 09/22/16 04:45 36.9 123 18 113/55 97 Room Air 09/22/16 00:00 Room Air 09/21/16 23:57 36.5 93 20 128/60 98 Room Air 09/21/16 22:45 36.7 93 114/60 98 Room Air 09/21/16 21:24 91 121/55 09/21/16 20:00 Room Air 09/21/16 16:17 Room Air 09/21/16 15:57 36.3 93 16 121/57 97 Awake and alert but she is obviously confused - she answers questions appropriately, but has difficulty with word finding. Abd: soft but distended. Improved from yesterday - less flank dullness. Extrem: She has less edema than previously Last 24 Hours Test 09/22/16 06:20 White Blood Count 13.78 K/uL Red Blood Count 2.08 M/uL Hemoglobin 7.3 g/dL Hematocrit 21.4 % Mean Corpuscular Volume 102.9 fL Mean Corpuscular Hemoglobin 35.1 pg Mean Corpuscular Hemoglobin Concent 34.1 g/dl RDW Standard Deviation 64.9 fL RDW Coefficient of Variation 17.7 % Platelet Count 192 K/uL Mean Platelet Volume 11.1 fL Sodium Level 133 mmol/L Potassium Level 4.1 mmol/L Chloride Level 98 mmol/L Carbon Dioxide Level 28 mmol/L Anion Gap 7.0 mmol/L Blood Urea Nitrogen 16 mg/dl Creatinine 0.92 mg/dl Est Creatinine Clear Calc Drug Dose 45.8 ml/min Estimated GFR () 71.1 Estimated GFR (Non- 61.3 BUN/Creatinine Ratio 17.8 Random Glucose 143 mg/dl Calcium Level 8.9 mg/dl Total Bilirubin 11.2 mg/dl Direct Bilirubin 4.5 mg/dl Aspartate Amino Transf (AST/SGOT) 48 U/L Alanine Aminotransferase (ALT/SGPT) 41 U/L Alkaline Phosphatase 218 U/L Total Protein 6.5 gm/dl Albumin 3.1 gm/dl A/P: Cirrhosis, volume overload, confusion - Her volume overload appears improving, and NA + creat are stable. Cont current doses of diuretics today, plan to transition to PO lasix and d/c albumin next 1-2 days - Etiology of confusion unclear - owning? HE? WIll begin xifaxan, cont current dose of lactulose and add dulcolax x1 dose. Would prefer to avoid Ativan and sedatives if possible.
[2016-09-22] MEDS ORDERED: BISACODYL 5 MG TABEC PO ONE (14:30)
--- NOTE | 2016-09-22 15:50 | Progress Note ---
Medicine Progress Note Date & Time of Visit: Sep 22, 2016 at 15:34. Subjective Patient seen and examined. Confused. Sluggish. Received lorazepam and gabapentin early this morning for muscle cramping and mood lability. Patient feels confused and disoriented. confirms that patient's last drink was in November 2015. He also states that patient has been noncompliant with diuretics. She did not take them for the first week that she was home from rehab. Objective Last 8 Hrs Date Time Temp Pulse Resp B/P Pulse Ox O2 Delivery O2 Flow Rate FiO2 09/22/16 15:20 36.5 99 18 111/55 98 09/22/16 11:53 36.4 121 16 108/54 96 Room Air 09/22/16 11:00 36.2 116 16 103/53 95 Room Air 09/22/16 08:00 Room Air Physical Exam: General-awake; alert; NAD Eyes-EOMI; +scleral icterus Neck-no stridor; trachea midline Lungs-+rhonchi; no crackles Heart-RRR; +murmur Abdomen-soft; distended; NT; nBS Extremities-2+ pitting edema bilaterally; no deformity Neuro-no asterixis Laboratory Results: Last 24 Hours Test 09/22/16 06:20 White Blood Count 13.78 K/uL Red Blood Count 2.08 M/uL Hemoglobin 7.3 g/dL Hematocrit 21.4 % Mean Corpuscular Volume 102.9 fL Mean Corpuscular Hemoglobin 35.1 pg Mean Corpuscular Hemoglobin Concent 34.1 g/dl RDW Standard Deviation 64.9 fL RDW Coefficient of Variation 17.7 % Platelet Count 192 K/uL Mean Platelet Volume 11.1 fL Sodium Level 133 mmol/L Potassium Level 4.1 mmol/L Chloride Level 98 mmol/L Carbon Dioxide Level 28 mmol/L Anion Gap 7.0 mmol/L Blood Urea Nitrogen 16 mg/dl Creatinine 0.92 mg/dl Est Creatinine Clear Calc Drug Dose 45.8 ml/min Estimated GFR () 71.1 Estimated GFR (Non- 61.3 BUN/Creatinine Ratio 17.8 Random Glucose 143 mg/dl Calcium Level 8.9 mg/dl Total Bilirubin 11.2 mg/dl Direct Bilirubin 4.5 mg/dl Aspartate Amino Transf (AST/SGOT) 48 U/L Alanine Aminotransferase (ALT/SGPT) 41 U/L Alkaline Phosphatase 218 U/L Total Protein 6.5 gm/dl Albumin 3.1 gm/dl Assessment & Plan Patient is a 76 y/o female with a h/o alcoholic cirrhosis who presented for evaluation of worsening ascites and edema. Alcoholic cirrhosis - GI consulted - given low clinical suspicion for SBP (patient denies abdominal pain, no confusion, afebrile, normal WBC count on admission), discontinued levofloxacin - hold outpatient Lasix dose - continue Lasix 40mg IV TID with 25% albumin - increased spironolactone to 150mg BID - plan for therapeutic paracentesis on Friday - continue MVI, thiamine and folate - continue lactulose - rifaximin started Encephalopathy 2/2 medications - patient confused today after receiving lorazepam and gabapentin early this morning; lower clinical suspicion for withdrawal, therefore these were discontinued (patient also requesting that they be discontinued) Hyponatremia - 2/2 volume overload from decompensated cirrhosis - continue diuresis Anemia - likely anemia of chronic disease - Hgb stable in the 7's DVT prophylaxis with SCD's Consultants: Gastroenterology Current Inpatient Medications: Current Inpatient Medications Medications (Trade) Dose Ordered Sig/Hernandez Route Start Time Stop Time Status Last Admin Dose Admin Ioversol (Optiray 320) 111 ml UD PRN IV 09/20/16 15:15 09/24/16 15:14 Acetaminophen (Tylenol Tab) 325 mg Q6H PRN PO 09/20/16 20:45 10/20/16 20:44 Folic Acid (Folvite Tab) 1 mg DAILY PO 09/21/16 09:00 10/21/16 08:59 09/22/16 10:18 1 MG Furosemide (Lasix Tab) 80 mg BID17 PO 09/21/16 09:00 10/21/16 08:59 Future Hold 09/21/16 08:17 80 MG Lactulose (Chronulac Syrup) 30 gm TID PO 09/21/16 09:00 10/21/16 08:59 09/22/16 13:35 30 GM Tramadol HCl (Ultram Tab) 25 mg Q6H PRN PO 09/20/16 21:30 10/20/16 21:29 Ondansetron HCl (Zofran Inj) 4 mg Q6H PRN IV 09/20/16 21:30 10/20/16 21:29 Potassium Chloride (Klor-Con M10) 20 meq DAILY PO 09/21/16 09:00 10/21/16 08:59 09/22/16 10:19 20 MEQ Thiamine HCl (Vitamin B-1 Tab) 100 mg QAM PO 09/21/16 09:00 10/21/16 08:59 09/22/16 10:19 100 MG Multivitamins (Multivitamin Tab) 1 tab QAM PO 09/21/16 09:00 10/21/16 08:59 09/22/16 10:18 1 TAB Pantoprazole Sodium (Protonix Tab) 40 mg QAM PO 09/21/16 09:00 10/21/16 08:59 09/22/16 10:18 40 MG Spironolactone (Aldactone Tab) 150 mg BID17 PO 09/21/16 17:00 10/21/16 16:59 09/22/16 10:19 150 MG Menthol 1 dianna 1 dianna PRN PRN PO 09/21/16 16:00 10/21/16 15:59 Furosemide/Syringe (Lasix Inj/ Syringe) 4 ml @ 4 mls/min TID IV 09/22/16 13:00 10/22/16 12:59 09/22/16 13:36 4 MLS/MIN Ipratropium [place] (Atrovent 0.02% 0.5MG/2.5ML Neb) 0.5 mg Q4H PRN INH 09/22/16 05:30 10/22/16 05:29 Levalbuterol (Xopenex 1.25MG/ 0.5ML Neb) 1.25 mg Q4H PRN INH 09/22/16 05:30 10/22/16 05:29 Albumin Human (Albumin 25%) 12.5 gm BID@0900,0901,2100,2101 IV 09/22/16 21:00 09/25/16 20:59 Rifaximin (Xifaxan Tab) 550 mg BID PO 09/22/16 21:00 10/22/16 20:59
[2016-09-22] MEDS: RIFAXIMIN TAB 550 MG TAB PO SCH (21:10)
[2016-09-23] VITALS (11 sets, daily range): BP systolic 100–116; BP diastolic 38–57; PULSE 67–97; TEMP 36.4–36.9; O2SAT 95–99
[2016-09-23] MEDS ORDERED: GABAPENTIN 600 MG TAB PO SCH (02:00)
[2016-09-23 06:39] LABS: HEMATOCRIT 20.4 % (37-47); MEAN CORPUSCULAR HEMOGLOBIN 35.9 pg (25-34); MEAN CORPUSCULAR HGB CONC 34.8 g/dl (32-36); MEAN PLATELET VOLUME 10.4 fL (7.4-10.4); PLATELET COUNT 175 K/uL (130-400); RED BLOOD COUNT 1.98 M/uL (4.2-5.4); WHITE BLOOD COUNT 11.22 K/uL (4.8-10.8)
[2016-09-23 07:24] LABS: BUN/CREATININE RATIO 15.2 (10-20); CALCIUM 8.6 mg/dl (8.5-10.1); MAGNESIUM 1.9 mg/dl (1.8-2.4); POTASSIUM 3.9 mmol/L (3.5-5.1)
[2016-09-23] MEDS: LACTULOSE SYRUP 30 GM/45 ML UDP PO SCH ×3 (08:06→21:32)
[2016-09-23] MEDS: MULTIVITAMIN TAB PO SCH (08:06)
[2016-09-23] MEDS: PANTOprazole SOD 40 MG TAB PO SCH (08:06)
[2016-09-23] MEDS: RIFAXIMIN TAB 550 MG TAB PO SCH ×2 (08:06→21:33)
[2016-09-23] MEDS: POTASSIUM CHLORIDE 10 MEQ TABCR PO SCH (08:06)
[2016-09-23] MEDS: THIAMINE HCL 100 MG TAB PO SCH (08:06)
[2016-09-23] MEDS: SPIRONOLACTONE 100 MG TAB PO SCH ×2 (08:07→16:34)
[2016-09-23] MEDS: FUROSEMIDE INJ 40 MG in SYRINGE 0 ML IV SCH (08:07)
[2016-09-23] MEDS: ALBUMIN HUMAN 25% 12.5 GM/50 ML VIAL IV SCH ×4 (09:30→21:33)
--- NOTE | 2016-09-23 09:51 | Clinical Documentation Query ---
QUERY 1 OF [address] NICKERSON, In your clinical opinion is this patient being managed for: ( X ) Encephalopathy likely due to meds--ativan and neurontin ( ) Other explanation of clinical findings (Please Explain) ( ) Unable to determine (Please Define) ( ) Need to Discuss ( ) Not Agree The medical record reflects the following clinical findings, treatment, and risk factors. Clinical Indicators: 76 yo female presented with alcoholic cirrhosis Ammonia level at presentation was 34. Pt was alert and oriented x 4 at that time. Pt developed increased restlessness/myalgias and mood lability per note on 09/22 and was given ativan and neurontin. Pt had received oral ativan prior to change in status. Per nursing documentation, pt became oriented to person and place which eventually returned to baseline status of A/O x 4. Treatment: ativan and neurontin discontinued Risk Factors: medication effects. QUERY 2 OF 2 In your clinical opinion is this patient being managed for: ( X ) Hyponatremia ( ) Other explanation of clinical findings (Please Explain) ( ) Unable to determine (Please Define) ( ) Need to Discuss ( ) Not Agree The medical record reflects the following clinical findings, treatment, and risk factors. Clinical Indicators: Pt presented with Na level of 129, worsening ascites/edema Treatment: IV lasix with albumin, spironolactone, GI consult with plan for paracentesis, monitor PRP's, fluid restriction Risk Factors: cirrhosis, increasing ascites and edema Hyponatremia (serum Na < 135 mEq/L) is a common electrolyte abnormality seen in a variety of medical conditions including cirrhosis, congestive heart failure, and SIADH. Hyponatremia is strongly associated with an increased risk of ; even mild hyponatremia (serum Na 130-134 mEq/L) is associated with a 47% increased risk of inpatient mortality. Please clarify and document your clinical opinion in the progress notes and discharge summary. Terms such as "probable", "suspected", "likely", "questionable", "possible", or "still to be ruled out" are acceptable. IF IN AGREEMENT, YOU MUST DOCUMENT ABOVE DIAGNOSTIC STATEMENT IN DAILY PROGRESS NOTES AND DISCHARGE SUMMARY. This document is not part of the patient's record. Thank You, Denise Renteria RN [phone]
--- NOTE | 2016-09-23 15:23 | DIAGNOSTIC IMAGING REPORT ---
ULTRASOUND GUIDED DIAGNOSTIC PARACENTESIS CLINICAL HISTORY: Ascites. COMPARISON STUDY: CT of the abdomen and pelvis September 20, 2016. PROCEDURE: The risks, benefits, and alternatives to the procedure were discussed with the patient including the risk of bleeding, infection and injury to adjacent structures. The patient agreed to the procedure and informed written consent was obtained. Following real-time ultrasound localization, the skin was prepped and draped. A small amount of ascites was noted. The amount of fluid was insufficient for a therapeutic paracentesis. Under direct ultrasound guidance, a 20-gauge 3 and 1/2 inch spinal needle was directed into the peritoneal cavity. 60 cc of serous ascites was withdrawn and sent to laboratory. The patient tolerated the procedure well and no immediate complications were evident. IMPRESSION: Ultrasound-guided diagnostic paracentesis with removal of 60 cc of serous ascites which was sent to laboratory for analysis. Electronically signed by: Zain Osman M.D. 09/23/2016 3:21 PM Dictated Date/Time: 09/23/2016 3:14 PM
[2016-09-23 16:07] LABS: PERIT FL WBC 378 /uL (0-300); PERITONEAL FLUID RBC < 3000 /uL
--- NOTE | 2016-09-23 16:32 | Gastroenterology Progress Note ---
Progress Note Date of Service: Sep 23, 2016 Subjective Pt evaluation today including: conversation w/ patient, conversation w/ family , physical exam, chart review, lab review, review of inpatient medication list Pt c/o abd distension, pressure discomfort and persistent leg swelling. Denies any n/v. Loose stools but on Lactulose Review of Systems Constitutional: No chills, No fever Respiratory: No cough, No shortness of breath Cardiac: No chest pain, No edema Abdomen: + see HPI, No diarrhea, No nausea, No vomiting Skin: + jaundice Medications Current Inpatient Medications Medications (Trade) Dose Ordered Sig/Hernandez Route Start Time Stop Time Status Last Admin Dose Admin Ioversol (Optiray 320) 111 ml UD PRN IV 09/20/16 15:15 09/24/16 15:14 Acetaminophen (Tylenol Tab) 325 mg Q6H PRN PO 09/20/16 20:45 10/20/16 20:44 Folic Acid (Folvite Tab) 1 mg DAILY PO 09/21/16 09:00 10/21/16 08:59 09/23/16 08:06 1 MG Furosemide (Lasix Tab) 80 mg BID17 PO 09/21/16 09:00 10/21/16 08:59 Future Hold 09/21/16 08:17 80 MG Lactulose (Chronulac Syrup) 30 gm TID PO 09/21/16 09:00 10/21/16 08:59 09/23/16 08:06 30 GM Tramadol HCl (Ultram Tab) 25 mg Q6H PRN PO 09/20/16 21:30 10/20/16 21:29 Ondansetron HCl (Zofran Inj) 4 mg Q6H PRN IV 09/20/16 21:30 10/20/16 21:29 Potassium Chloride (Klor-Con M10) 20 meq DAILY PO 09/21/16 09:00 10/21/16 08:59 09/23/16 08:06 20 MEQ Thiamine HCl (Vitamin B-1 Tab) 100 mg QAM PO 09/21/16 09:00 10/21/16 08:59 09/23/16 08:06 100 MG Multivitamins (Multivitamin Tab) 1 tab QAM PO 09/21/16 09:00 10/21/16 08:59 09/23/16 08:06 1 TAB Pantoprazole Sodium (Protonix Tab) 40 mg QAM PO 09/21/16 09:00 10/21/16 08:59 09/23/16 08:06 40 MG Spironolactone (Aldactone Tab) 150 mg BID17 PO 09/21/16 17:00 10/21/16 16:59 09/23/16 08:07 150 MG Menthol 1 dianna 1 dianna PRN PRN PO 09/21/16 16:00 10/21/16 15:59 Furosemide/Syringe (Lasix Inj/ Syringe) 4 ml @ 4 mls/min TID IV 09/22/16 13:00 10/22/16 12:59 09/23/16 08:07 4 MLS/MIN Ipratropium [place] (Atrovent 0.02% 0.5MG/2.5ML Neb) 0.5 mg Q4H PRN INH 09/22/16 05:30 10/22/16 05:29 Levalbuterol (Xopenex 1.25MG/ 0.5ML Neb) 1.25 mg Q4H PRN INH 09/22/16 05:30 10/22/16 05:29 Albumin Human (Albumin 25%) 12.5 gm BID@0900,0901,2100,2101 IV 09/22/16 21:00 09/25/16 20:59 09/23/16 10:13 12.5 GM Rifaximin (Xifaxan Tab) 550 mg BID PO 09/22/16 21:00 10/22/16 20:59 09/23/16 08:06 550 MG Objective Vital Signs Date Time Temp Pulse Resp B/P Pulse Ox O2 Delivery O2 Flow Rate FiO2 09/23/16 15:35 36.4 88 16 112/47 97 09/23/16 11:00 36.6 93 16 105/49 99 Room Air 09/23/16 10:15 36.5 93 18 113/53 99 Room Air 09/23/16 09:38 36.5 93 16 115/38 99 Room Air 09/23/16 08:00 Room Air 09/23/16 07:32 36.6 97 16 100/48 96 Room Air 09/23/16 04:00 36.4 91 18 101/57 98 Room Air 09/23/16 00:07 36.8 67 14 103/48 99 Room Air 09/23/16 00:01 Room Air 09/22/16 21:48 90 110/46 09/22/16 21:18 105 100/50 09/22/16 20:00 Room Air 09/22/16 19:35 36.5 95 18 108/49 98 Room Air Physical Exam General Appearance: no apparent distress, + thin Eyes: EOMI Neck: supple, no JVD, trachea midline Respiratory/Chest: no respiratory distress, no accessory muscle use, + decreased breath sounds Cardiovascular: regular rate, rhythm, no gallop, no murmur Abdomen: normal bowel sounds, + distended, + tenderness (TTP over lower abd areas) Extremities: + swelling (+3 pitting edema bilateral LE) Neurologic/Psych: alert, normal mood/affect, oriented x 3 Skin: warm/dry, + jaundice Laboratory Results Last 24 Hours Test 09/23/16 06:03 09/23/16 14:35 White Blood Count 11.22 K/uL Red Blood Count 1.98 M/uL Hemoglobin 7.1 g/dL Hematocrit 20.4 % Mean Corpuscular Volume 103.0 fL Mean Corpuscular Hemoglobin 35.9 pg Mean Corpuscular Hemoglobin Concent 34.8 g/dl RDW Standard Deviation 66.1 fL RDW Coefficient of Variation 17.9 % Platelet Count 175 K/uL Mean Platelet Volume 10.4 fL Sodium Level 132 mmol/L Potassium Level 3.9 mmol/L Chloride Level 96 mmol/L Carbon Dioxide Level 28 mmol/L Anion Gap 8.0 mmol/L Blood Urea Nitrogen 15 mg/dl Creatinine 1.00 mg/dl Est Creatinine Clear Calc Drug Dose 41.1 ml/min Estimated GFR () 64.3 Estimated GFR (Non- 55.5 BUN/Creatinine Ratio 15.2 Random Glucose 147 mg/dl Calcium Level 8.6 mg/dl Magnesium Level 1.9 mg/dl Peritoneal Fluid Color YELLOW Peritoneal Fluid Appearance HAZY Peritoneal Fluid WBC 378 /uL Peritoneal Fluid RBC < 3000 /uL Peritoneal Fld Mononuclear WBCs (%) 92.8 % Peritoneal Fld Polynuclear WBCs (%) 7.2 % Peritoneal Fluid Total Protein 1.3 g/dl Peritoneal Fluid Albumin 0.8 g/dl Assessment and Plan Pt is a 76 y/o female w ETOH cirrhosis admitted for volume overload. Possible non compliance w diuretics at home. Over weekend had confusion but per hospitalist she received some sedatives the night before. She is mentally clear today. - U/S guided paracentesis for diagnostic (to r/o SBP) and therapeutic purposes. F/U cell ct, cx. - Albumin 25% 12.5g QID - Changed Furosemide 40mg IV TID to 60mg BID form; continue Spironolactone 150mg BID - Low salt diet. - Continue Lactulose and Xifaxan as dosed.
--- NOTE | 2016-09-23 17:56 | Progress Note ---
Medicine Progress Note Date & Time of Visit: Sep 23, 2016 at 17:47. Subjective Patient seen and examined. and niece worried about patient living alone in [facility]. Patient is noncompliant with diet and taking medications. Patient has been shopping everyday since May (when not in the hospital or rehab) and hoarding. There is garbage and un-emptied shopping bags that litter the floor (patient is walking through trash to get from room to room). Patient has not been bathing as the bathtub is full of bought goods. Objective Last 8 Hrs Date Time Temp Pulse Resp B/P Pulse Ox O2 Delivery O2 Flow Rate FiO2 09/23/16 16:32 Room Air 09/23/16 15:35 36.4 88 16 112/47 97 09/23/16 11:00 36.6 93 16 105/49 99 Room Air 09/23/16 10:15 36.5 93 18 113/53 99 Room Air Physical Exam: General-awake; alert; NAD Eyes-EOMI; +scleral icterus Neck-no stridor; trachea midline Lungs-+rhonchi; no crackles Heart-RRR; +murmur Abdomen-soft; distended; NT; nBS Extremities-2+ pitting edema bilaterally; no deformity Neuro-no asterixis Laboratory Results: Last 24 Hours Test 09/23/16 06:03 09/23/16 14:35 White Blood Count 11.22 K/uL Red Blood Count 1.98 M/uL Hemoglobin 7.1 g/dL Hematocrit 20.4 % Mean Corpuscular Volume 103.0 fL Mean Corpuscular Hemoglobin 35.9 pg Mean Corpuscular Hemoglobin Concent 34.8 g/dl RDW Standard Deviation 66.1 fL RDW Coefficient of Variation 17.9 % Platelet Count 175 K/uL Mean Platelet Volume 10.4 fL Sodium Level 132 mmol/L Potassium Level 3.9 mmol/L Chloride Level 96 mmol/L Carbon Dioxide Level 28 mmol/L Anion Gap 8.0 mmol/L Blood Urea Nitrogen 15 mg/dl Creatinine 1.00 mg/dl Est Creatinine Clear Calc Drug Dose 41.1 ml/min Estimated GFR () 64.3 Estimated GFR (Non- 55.5 BUN/Creatinine Ratio 15.2 Random Glucose 147 mg/dl Calcium Level 8.6 mg/dl Magnesium Level 1.9 mg/dl Peritoneal Fluid Color YELLOW Peritoneal Fluid Appearance HAZY Peritoneal Fluid WBC 378 /uL Peritoneal Fluid RBC < 3000 /uL Peritoneal Fld Mononuclear WBCs (%) 92.8 % Peritoneal Fld Polynuclear WBCs (%) 7.2 % Peritoneal Fluid Total Protein 1.3 g/dl Peritoneal Fluid Albumin 0.8 g/dl Date/Time Source Procedure Growth Status 09/23/16 14:35 Ascities Fluid Gram Stain Pending Received 09/23/16 14:35 Ascities Fluid Bacterial Culture Pending Received 09/23/16 14:35 Ascities Fluid Acid Fast Stain Pending Received 09/23/16 14:35 Ascities Fluid Mycobacterial Culture Pending Received Assessment & Plan Patient is a 76 y/o female with a h/o alcoholic cirrhosis who presented for evaluation of worsening ascites and edema. Alcoholic cirrhosis - GI consulted - given low clinical suspicion for SBP (patient denies abdominal pain, no confusion, afebrile, normal WBC count on admission), discontinued levofloxacin - hold outpatient Lasix dose - continue Lasix 40mg IV TID with 25% albumin - increased spironolactone to 150mg BID - plan for therapeutic paracentesis on Friday - continue MVI, thiamine and folate - continue lactulose - rifaximin started Encephalopathy 2/2 medications - patient confused 09/22 after receiving lorazepam and gabapentin early this morning; lower clinical suspicion for withdrawal, therefore these were discontinued (patient also requesting that they be discontinued) - resolved Hyponatremia - 2/2 volume overload from decompensated cirrhosis - continue diuresis Anemia - likely anemia of chronic disease - Hgb stable in the ' Psychiatry consulted for evaluation of hoarding, grandiose spending and behavioral changes noted by family since May. DVT prophylaxis with SCD's D/w patient that she is not safe to return home alone. Her options would be to move to [place] with her or move into assisted living. Patient states that she will consider assisted living. Consultants: Gastroenterology Current Inpatient Medications: Current Inpatient Medications Medications (Trade) Dose Ordered Sig/Hernandez Route Start Time Stop Time Status Last Admin Dose Admin Ioversol (Optiray 320) 111 ml UD PRN IV 09/20/16 15:15 09/24/16 15:14 Acetaminophen (Tylenol Tab) 325 mg Q6H PRN PO 09/20/16 20:45 5/21/17 20:44 Folic Acid (Folvite Tab) 1 mg DAILY PO 09/21/16 09:00 10/21/16 08:59 09/23/16 08:06 1 MG Furosemide (Lasix Tab) 80 mg BID17 PO 09/21/16 09:00 10/21/16 08:59 Future Hold 09/21/16 08:17 80 MG Lactulose (Chronulac Syrup) 30 gm TID PO 09/21/16 09:00 10/21/16 08:59 09/23/16 16:34 30 GM Tramadol HCl (Ultram Tab) 25 mg Q6H PRN PO 09/20/16 21:30 10/20/16 21:29 Ondansetron HCl (Zofran Inj) 4 mg Q6H PRN IV 09/20/16 21:30 10/20/16 21:29 Potassium Chloride (Klor-Con M10) 20 meq DAILY PO 09/21/16 09:00 10/21/16 08:59 09/23/16 08:06 20 MEQ Thiamine HCl (Vitamin B-1 Tab) 100 mg QAM PO 09/21/16 09:00 10/21/16 08:59 09/23/16 08:06 100 MG Multivitamins (Multivitamin Tab) 1 tab QAM PO 09/21/16 09:00 10/21/16 08:59 09/23/16 08:06 1 TAB Pantoprazole Sodium (Protonix Tab) 40 mg QAM PO 09/21/16 09:00 10/21/16 08:59 09/23/16 08:06 40 MG Spironolactone (Aldactone Tab) 150 mg BID17 PO 09/21/16 17:00 10/21/16 16:59 09/23/16 16:34 150 MG Menthol (Nice Phil) 1 phil PRN PRN PO 09/21/16 16:00 10/21/16 15:59 Ipratropium [place] (Atrovent 0.02% 0.5MG/2.5ML Neb) 0.5 mg Q4H PRN INH 09/22/16 05:30 10/22/16 05:29 Levalbuterol (Xopenex 1.25MG/ 0.5ML Neb) 1.25 mg Q4H PRN INH 09/22/16 05:30 10/22/16 05:29 Albumin Human (Albumin 25%) 12.5 gm BID@0900,0901,2100,2101 IV 09/22/16 21:00 09/25/16 20:59 09/23/16 10:13 12.5 GM Rifaximin (Xifaxan Tab) 550 mg BID PO 09/22/16 21:00 10/22/16 20:59 09/23/16 08:06 550 MG Furosemide (Lasix Tab) 60 mg BID17 PO 09/23/16 18:00 10/23/16 17:59
[2016-09-23] MEDS: FUROSEMIDE 20 MG TAB PO SCH (18:44)
[2016-09-24] VITALS: O2SAT 95
[2016-09-24 04:18] VITALS: BP 117/55; PULSE 92; TEMP 36.8; O2SAT 97
[2016-09-24] MEDS ORDERED: GABAPENTIN 600 MG TAB PO SCH (06:00)
[2016-09-24 06:10] LABS: HEMATOCRIT 22.7 % (37-47); MEAN CELL VOLUME 101.8 fL (80-100); MEAN CORPUSCULAR HEMOGLOBIN 36.3 pg (25-34); MEAN CORPUSCULAR HGB CONC 35.7 g/dl (32-36); MEAN PLATELET VOLUME 11.4 fL (7.4-10.4); PLATELET COUNT 181 K/uL (130-400); RED BLOOD COUNT 2.23 M/uL (4.2-5.4); WHITE BLOOD COUNT 11.32 K/uL (4.8-10.8)
[2016-09-24 06:51] LABS: CREATININE 0.9 mg/dl (0.60-1.20)
[2016-09-24 06:52] LABS: BUN/CREATININE RATIO 11.3 (10-20); CALCIUM 8.8 mg/dl (8.5-10.1); POTASSIUM 3.6 mmol/L (3.5-5.1)
[2016-09-24 07:41] VITALS: BP 92/46; PULSE 96; TEMP 37; O2SAT 95
[2016-09-24] MEDS: LACTULOSE SYRUP 30 GM/45 ML UDP PO SCH (07:55)
[2016-09-24] MEDS: SPIRONOLACTONE 100 MG TAB PO SCH (07:55)
[2016-09-24] MEDS: ALBUMIN HUMAN 25% 12.5 GM/50 ML VIAL IV SCH ×2 (07:55→09:38)
[2016-09-24] MEDS: POTASSIUM CHLORIDE 10 MEQ TABCR PO SCH (07:56)
[2016-09-24] MEDS: FUROSEMIDE 20 MG TAB PO SCH (07:56)
[2016-09-24] MEDS: MULTIVITAMIN TAB PO SCH (07:57)
[2016-09-24] MEDS: THIAMINE HCL 100 MG TAB PO SCH (07:57)
[2016-09-24] MEDS: PANTOprazole SOD 40 MG TAB PO SCH (07:57)
[2016-09-24] MEDS: RIFAXIMIN TAB 550 MG TAB PO SCH (07:57)
[2016-09-24 09:38] VITALS: BP 110/50; PULSE 97; O2SAT 96
[2016-09-24 10:51] VITALS: BP 119/58; PULSE 100; TEMP 36.7; O2SAT 99
[2016-09-24] MEDS ORDERED: MULT-589 PO (13:48)
[2016-09-24] MEDS ORDERED: XFX550 PO (13:48)
[2016-09-24] MEDS ORDERED: THM100 PO (13:48)
[2016-09-24] MEDS ORDERED: SPIR100T PO (13:48)
--- NOTE | 2016-09-24 13:53 | Discharge Instructions ---
Discharge Instructions Date of Service Sep 24, 2016. Admission Reason for Admission: Decompensated Hepatic Cirrhosis Discharge Discharge Diagnosis / Problem: Alcoholic cirrhosis Discharge Goals Goal(s): Improve disease control Activity Recommendations Activity Limitations: resume your previous activity . Instructions / Follow-Up Instructions / Follow-Up Please follow up with Nephrology Dr. Rodriguez on September 26 at 1:00pm. Please follow up with Family Medicine Britta Portillo on September 27 at 10:00am. Please follow up with Cardiology Juancarlos Barrera on October 10 at 10:45am. Please follow up with Gastroenterology Dr. Minaya on October 16 at 10:00am. Rifaximin and lactulose are to prevent you from becoming confused from your cirrhosis. Lasix and spironolactone are water pills to prevent you from holding on to to much water in your body. Folic acid and thiamine are vitamins. Atorvastatin is a cholesterol medication. Current Hospital Diet Patient's current hospital diet: AHA Diet (Heart Healthy), Low Sodium Diet (2gm Na) Discharge Diet Recommended Diet: Low Sodium Diet (2gm Na) Fluid Restriction: 2000 ml (8 cups) Pending Studies Studies pending at discharge: no Medical Emergencies . Who to Call and When: Medical Emergencies: If at any time you feel your situation is an emergency, please call 911 immediately. . Non-Emergent Contact Non-Emergency issues call your: Primary Care Provider . . "Provider Documentation" section prepared by Kiersten Mattson. . VTE Core Measure Inpt VTE Proph given/why not?: SCD's
[2016-09-24 13:57] VITALS: BP 119/58; PULSE 100; TEMP 36.7; O2SAT 99
--- NOTE | 2016-09-24 14:06 | Discharge Summary ---
Discharge Summary Date of Service Sep 24, 2016. Discharge Summary Admission Date: Sep 20, 2016 at 20:50 Discharge Date: Sep 24, 2016 Discharge Disposition: Home with services Principal Diagnosis: Alcoholic cirrhosis with ascites Consultations: Gastroenterology Medication Reconciliation New Medications: Multivitamins (Daily Sae) 1 Tab Tab 1 TAB PO QAM for 30 Days, #30 TAB Rifaximin (Xifaxan) 550 Mg Tab 550 MG PO BID for 30 Days, #60 TAB Thiamine HCl (Vitamin B-1) 100 Mg Tab 100 MG PO QAM for 30 Days, #30 TAB Changed Medications: Spironolactone (Aldactone) 100 Mg Tab 150 MG PO BID for 30 Days, #90 TAB (Changed from: 100 MG) Continued Medications: Atorvastatin (Lipitor) 20 Mg Tab 20 MG PO HS Folic Acid (Folvite) 1 Mg Tab 1 MG PO DAILY Furosemide (Lasix) 80 Mg Tab 80 MG PO BID Lactulose (Chronulac) 10 Gm/15 Ml Syrp 30 ML PO TID Admission Information HPI (per Admitting provider): Medical history significant for alcoholic cirrhosis, chronic anemia (baseline hemoglobin of 7), chronic diastolic heart failure, EF of 70% (2017). history of chronic left bundle-branch block, past tobacco abuse, sp TAVR. History of esophageal varices per records. Recent confinement at [facility] last 08/2015 for alcoholic cirrhosis, alcohol withdrawal, severe , and heart failure. Patient subsequently transferred to [facility]. Subsequently underwent TAVR. Recent confinement at [facility] last month for hypotension, decompensated cirrhosis, renal failure. Subsequently discharged to [facility] for rehab. As per note, the patient noncompliant at rehab facility. Refused blood transfusion, etc. Deemed competent by psychiatry. Patient has been home the last 2 weeks with home health services. She had a followup with her PCP last on 09/10/2016. Patient complaining of leg swelling, worse as the day goes on. Claims to be compliant with medications and abstinent from alcohol. As per note, the patient declined lab work. Last week, increased swelling of the lower extremities with shooting pain, increased abdominal distention and pain, more on the right, some aches, no fever, some chills. No chest pain, no shortness of breath. Cough symptoms productive of clear sputum of one day duration. Denies aspiration. Denies emesis, black/bloody stools. Home health nurse sent her to the Emergency Room. Patient claims "she was told to drink a lot of water by people." Could be drinking more than 2 liters a day. Physical Exam (per Admitting): VITAL SIGNS: Blood pressure was noted to be 121/50, pulse rate 99, RR 18, temperature 36.9, sats 96 on room air. GENERAL: Noted to be chronically ill. No respiratory distress. Anxious. SKIN: Pallor. HEENT: Pale palpebral conjunctivae. Dry mucosa. NECK: No JVD. Supple. CHEST: Decreased breath sounds. HEART: Systolic murmur. ABDOMEN: distension. Some tenderness on the right. fluid wave EXTREMITIES: Bilateral LE edema. some tenderness NEUROLOGIC: No gross focality. Hospital Course Patient is a 76 y/o female with a h/o alcoholic cirrhosis who presented for evaluation of worsening ascites and edema. This is due to non-compliance with diet and medications. GI was consulted. Patient was diuresed with IV Lasix and albumin. Spironolactone was also increased. Patient was transitioned back to her home dose of Lasix upon discharge. Rifaximin was added back to patient's medication regimen (she had been discharged from [facility] on this). Labs remained stable. Diagnostic paracentesis was negative for SBP. Patient's family expressed concerns about patient's living conditions. Patient is a hoarder. Patient does not take medications. Psychiatry was consulted. This health technical writer spoke to the home nursing agency. They reported that patient does brijesh. There is a small pathway from the kitchen into the living room. There are bags of things everywhere. Patient does not take her medications. It was recommended that patient come to ED for evaluation and patient refused. To this health technical writer, patient is unable to state the events that led up to this hospitalization. Patient is unable to state that because she did not take her medications, she became volume overloaded and had to come to the hospital. Patient blames her family and healthcare providers for her situation. Patient is unable to state the consequences of her choices to this health technical writer. Psychiatry feels that patient has capacity, despite her poor decisions. Therefore, patient will be discharged home with home health services and outpatient follow up. PE on discharge: General- awake; alert; intermittently angry and tearful Eyes- scleral icterus; EOMI Neck- no stridor; trachea midline Lungs- +rhonchi Heart- RRR; +murmur Abdomen- soft; distended; NT; nBS Back- no gross abnormalities Extremities- 2+ pitting edema extending to mid arnold Neuro- no focal deficits Skin- no appreciable rash . Total time spent on discharge = This includes examination of the patient, discharge planning, medication reconciliation, and communication with other providers. Discharge Instructions Discharge Instructions Date of Service Sep 24, 2016. Admission Reason for Admission: Decompensated Hepatic Cirrhosis Discharge Discharge Diagnosis / Problem: Alcoholic cirrhosis Discharge Goals Goal(s): Improve disease control Activity Recommendations Activity Limitations: resume your previous activity . Instructions / Follow-Up Instructions / Follow-Up Please follow up with Nephrology Dr. Rodriguez on September 26 at 1:00pm. Please follow up with Family Medicine Britta Portillo on September 27 at 10:00am. Please follow up with Cardiology Juancarlos Barrera on October 10 at 10:45am. Please follow up with Gastroenterology Dr. Minaya on October 16 at 10:00am. Rifaximin and lactulose are to prevent you from becoming confused from your cirrhosis. Lasix and spironolactone are water pills to prevent you from holding on to to much water in your body. Folic acid and thiamine are vitamins. Atorvastatin is a cholesterol medication. Current Hospital Diet Patient's current hospital diet: AHA Diet (Heart Healthy), Low Sodium Diet (2gm Na) Discharge Diet Recommended Diet: Low Sodium Diet (2gm Na) Fluid Restriction: 2000 ml (8 cups) Pending Studies Studies pending at discharge: no Medical Emergencies . Who to Call and When: Medical Emergencies: If at any time you feel your situation is an emergency, please call 911 immediately. . Non-Emergent Contact Non-Emergency issues call your: Primary Care Provider . . "Provider Documentation" section prepared by Kiersten Mattson. . VTE Core Measure Inpt VTE Proph given/why not?: SCD's Additional Copies To Britta Portillo,Sumit
--- NOTE | 2016-09-24 14:32 | Psychiatric Consultation ---
Consultation Date of Consultation Sep 24, 2016. Identifying Data Carla Landry is a 76-year-old female who currently lives alone in [place], [place]. Patient is but lives and works in [place] most of the year. Patient is admitted from home on 09/20/2016 for decompensated cirrhosis with swollen lower extremities with pain, ascites and fatigue. Information provided by the patient is considered to be reliable. Patient's was present in the room for part of interview with patient permission. Chief Complaint "I'm ready to go home". History of Present Illness Patient is a 76 year old white female. She has a history of alcoholic cirrohosis. She has not past history of mental health treatment. She has been noncompliant with treatment and was hospitalized at [facility] in [place] in July of 2016. She was then sent to [facility] for Rehab and discharged from there about 2 weeks ago to her home with home nursing services. Family has expressed concern about her increased shopping and the state of her home. She has been buying large quantities or items she doesn't need according to . She then, in his opinion, due to fatigue related to medical conditions , has been unable to put things away to the point that there was only a path to walk through in her home and her bathtub was filled and so she couldn't bathe. She would buy food and then not put it away or cook it. He lives and works in [place] but has been back in the area since July. Today the patient denies depressed mood, she reports that she generally sleeps well and has not had periods or elevated energy with lack of need for sleep. She denies SI today or history of suicidal thoughts, intention or plan. She becomes irritable and defensive when asked about her spending and buying excessive amounts of goods. She reported to the Liaison Nurse that her "put a child lock on the TV for QVC." She reports that her has cleaned the house since she has been hospitalized. reports that she is not happy that he discarded some of her recent purchases. Patient ignores questions about her thoughts about accumulating excessive amounts of goods that she doesn' t seem to need. She denies that she has trouble or distressed by discarding things that are no longer useful or of value. Past Psychiatric History Current OP Treatment: no current treatment Prior OP Treatment: no prior treatment Prior Psych Hospitalizations: none Access to a Gun: No Suicide Attempts: No Past Medical/Surgical History History of Concussion/Seizure: No Allergies Allergies: Coded Allergies: Adhesives (Unverified Allergy, Intermediate, ITCHY, 09/20/16) Iodine (Verified Allergy, Unknown, ., 09/20/16) Milk (Verified Allergy, Unknown, ., 09/20/16) Home Medications Scheduled Atorvastatin (Lipitor), 20 MG PO HS Folic Acid (Folvite), 1 MG PO DAILY Furosemide (Lasix), 80 MG PO BID Lactulose (Chronulac), 30 ML PO TID Multivitamins (Daily Sae), 1 TAB PO QAM Rifaximin (Xifaxan), 550 MG PO BID Spironolactone (Aldactone), 150 MG PO BID Thiamine HCl (Vitamin B-1), 100 MG PO QAM Family History No pertinent family history History of Suicide: No History of Substance Abuse: Yes Psychiatric History: No Alcohol Use Alcohol Use In Past 12 Months: Yes (patient has a history of drinking heavily but stopped completely in November 2015) Smoking Use Smoking Status: Former Smoker Personal History Relationship History: Children: son who is not involved with patient Spiritual Affiliation: nine Legal History: none Examination Physical Examination by primary team Vital Signs Vital Signs Past 12 Hours Date Time Temp Pulse Resp B/P Pulse Ox O2 Delivery O2 Flow Rate FiO2 09/24/16 10:51 36.7 100 18 119/58 99 Room Air 09/24/16 09:38 97 18 110/50 96 Room Air 09/24/16 08:00 Room Air 09/24/16 07:41 37.0 96 18 92/46 95 Room Air 09/24/16 04:18 36.8 92 20 117/55 97 Room Air Laboratory Results Meds Administered (Past 24Hrs) Medications (Trade) Dose Ordered Sig/Hernandez Route Start Time Stop Time Status Last Admin Dose Admin Albumin Human (Albumin 25%) 12.5 gm BID@0900,0901,2100,2101 IV 09/22/16 21:00 09/25/16 20:59 09/24/16 09:38 12.5 GM Bisacodyl (Dulcolax Tab) 5 mg NOW ONCE PO 09/22/16 14:30 09/22/16 14:31 DC 09/22/16 15:22 5 MG Rifaximin (Xifaxan Tab) 550 mg BID PO 09/22/16 21:00 10/22/16 20:59 09/24/16 07:57 550 MG Furosemide (Lasix Tab) 60 mg BID17 PO 09/23/16 18:00 10/23/16 17:59 09/24/16 07:56 60 MG Last 24 Hours Test 09/23/16 14:35 09/24/16 05:55 Peritoneal Fluid Color YELLOW Peritoneal Fluid Appearance HAZY Peritoneal Fluid WBC 378 /uL Peritoneal Fluid RBC < 3000 /uL Peritoneal Fld Mononuclear WBCs (%) 92.8 % Peritoneal Fld Polynuclear WBCs (%) 7.2 % Peritoneal Fluid Total Protein 1.3 g/dl Peritoneal Fluid Albumin 0.8 g/dl White Blood Count 11.32 K/uL Red Blood Count 2.23 M/uL Hemoglobin 8.1 g/dL Hematocrit 22.7 % Mean Corpuscular Volume 101.8 fL Mean Corpuscular Hemoglobin 36.3 pg Mean Corpuscular Hemoglobin Concent 35.7 g/dl RDW Standard Deviation 65.8 fL RDW Coefficient of Variation 17.8 % Platelet Count 181 K/uL Mean Platelet Volume 11.4 fL Sodium Level 131 mmol/L Potassium Level 3.6 mmol/L Chloride Level 95 mmol/L Carbon Dioxide Level 29 mmol/L Anion Gap 7.0 mmol/L Blood Urea Nitrogen 10 mg/dl Creatinine 0.90 mg/dl Est Creatinine Clear Calc Drug Dose 45.6 ml/min Estimated GFR () 73.0 Estimated GFR (Non- 63.0 BUN/Creatinine Ratio 11.3 Random Glucose 114 mg/dl Calcium Level 8.8 mg/dl Mental Examination During interview pt is: alert and oriented Appearance: appropriately dressed, appropriately groomed Eye contact is: good Motor behavior is: no abnormal motor movements Speech: normal in rate, rhythm & volume Affect: mood congruent, irritable (when asked about spending money and the state of her home) Mood is: irritable, other (describes mood as "good" ) Thought process: goal directed Thought content: preoccupation Suicidal thought are: denied Homicidal thoughts are: denied Hallucinations: denies auditory, denies visual Cognition: memory grossly intact, attention grossly intact Intelligence estimated to be: consistent with level of education Insight: fair Judgement: fair Impression / Recommendations Impression Reviewed with Dr. Diann Irene. Patient is a 76 year old female who has been having difficulty caring for herself at home. She has no history of mental health treatment. She denied symptoms consistent with joe, including euphoric mood, grandiosity, lack of need for sleep. She denies depressed mood beyond being "down sometimes." She is buying large quantities or goods at the [facility] and then was unable to put things away. feels related to her physical limitations due to medical problems. He has cleaned up the house and patient is willing to have increased home health serviced which have been facilitated by case management. The patient does understand the recommendation that she go to either live with her in [place] or go to an assisted living facility. The patient desires to return to home in [place] and again is verbalizing willingness to continue with home health services. She does understand that if she does not follow medical treatment, including taking her medications as prescribed that she is at risk of re-hospitalization or in the worst case scenario, . The patient does not endorse symptoms consistent with bipolar disorder, psychosis, or major depression. She does not require inpatient mental health treatment. She would benefit from the continued home nursing service. Patient is willing to have other home services such as house keeper. Spoke with Ladan in Case management and she is attempting to refer patient to the [facility] in [facility]. Patient would benefit from outpatient therapy to continue to assess and process need to accumulate items. Today patient is focused on discharge and is declining referral but says that she will consider.
[2016-09-25] MEDS ORDERED: GABAPENTIN 600 MG TAB PO SCH (18:00)
[2016-10-18] MEDS ORDERED: OMEP40CA41 PO (11:00)
[2016-10-18] MEDS ORDERED: LACT10SO17 PO (11:00)
[2016-10-18] MEDS ORDERED: CIPR-255 PO (11:00)
== END 2016-09-24 14:14 | disposition home health service (06) | DRG 432 ==
LOC: ENRESERVDT → ENRESERVTM → C.EDB 14:09 → EDBEDREQSVC 20:37 → C.MED 20:50
PROVIDERS: ADMIT Internal Medicine; ATTEND Internal Medicine
PROC: 0W9G3ZX Drainage of Peritoneal Cavity, Percutaneous Approach, Diagnostic (ICD-10-PCS; principal; 2016-09-23)
DX: K70.31 Alcoholic cirrhosis of liver with ascites (principal); G92 Toxic encephalopathy; K65.2 Spontaneous bacterial peritonitis; I50.32 Chronic diastolic (congestive) heart failure; F05 Delirium due to known physiological condition; E87.1 Hypo-osmolality and hyponatremia; I44.7 Left bundle-branch block, unspecified; F42.3 Hoarding disorder; D63.8 Anemia in other chronic diseases classified elsewhere; E87.70 Fluid overload, unspecified; I87.8 Other specified disorders of veins; I35.0 Nonrheumatic aortic (valve) stenosis; T42.4X5A Adverse effect of benzodiazepines, initial encounter; T42.6X5A Adverse effect of other antiepileptic and sedative-hypnotic drugs, initial encounter; Y92.230 Patient room in hospital as the place of occurrence of the external cause; Z87.19 Personal history of other diseases of the digestive system; Z91.19 Patient's noncompliance with other medical treatment and regimen; Z95.2 Presence of prosthetic heart valve; Z87.891 Personal history of nicotine dependence; Z86.59 Personal history of other mental and behavioral disorders; Z79.899 Other long term (current) drug therapy

== ENCOUNTER 2016-10-14 09:54 | Inpatient (IN) | payer OTHER ==
[2016-10-14] VITALS (76 sets, daily range): BP systolic 78–138; BP diastolic 25–102; PULSE 78–112; TEMP 36.3–37; O2SAT 92–100; Ht 152.4 cm; Wt 57.2 kg
[~2016-10-14] VITALS: Ht 152.4 cm; Wt 57.2 kg
[~2016-10-14 09:54] MED LIST: ATOR-22 PO; FOLI1TAB7 PO; FURO80TA63 PO; LACT10SO17 PO; MULT-589 PO; SPIR100T PO; THM100 PO; XFX550 PO
[2016-10-14] MEDS ORDERED: SODIUM CHLORIDE 0.9% 1000ML 1,000 ML IV STA (10:06)
[2016-10-14] MEDS ORDERED: FAMOTIDINE 20MG/102 ML D5W IV STA (10:11)
[2016-10-14] MEDS ORDERED: OCTREOTIDE IV BOLUS & DRIP IV STA ×2 (10:11→11:23)
[2016-10-14] MEDS ORDERED: OCTREOTIDE ACETATE INJ 100 MCG in SYRINGE 9 ML IV SCH (10:30)
[2016-10-14] MEDS ORDERED: PANTOprazole INJ 80 MG in DEXTROSE 5% 100ML IV SCH (10:30)
[2016-10-14 10:33] LABS: ISTAT CREATININE 1.1 mg/dl (0.6-1.3); ISTAT HEMOGLOBIN 5.8 g/dl (12.0-16.0); ISTAT IONIZED CALCIUM 1.03 mmol/l (1.12-1.32)
--- NOTE | 2016-10-14 10:39 | Gastrointestinal Consultation ---
Gastrointestinal Consultation Date of Consultation: October 14, 2016 Reason for Consultation: melena, hematemesis History of Present Illness Patient is a 76 year old female w/ ETOH cirrhosis (G1EV, PHG, and ascites) with a 3 day history of painless melena and hematemesis through the ED - GI stat consult. Patient was seen and evaluated. She is not on a beta renato as an outpatient. Denies abdominal pain. There is mild epigastric discomfort immediately proceeding an episode of hematemesis. She tells me she has had this in the past - but it was not thought to be from EV. Numerous episodes of black stools and hematemesis daily. She denies feeling lightheaded, dizzy, chest pain , SOB. Tachycardiac, BP stable. H&H 5.01/16 Past Medical/Surgical History Medical Problems: (1) Anasarca Status: Acute (2) Anemia Status: Acute (3) Cirrhosis Status: Acute (4) Hyperbilirubinemia Status: Acute (5) RUQ abdominal pain Status: Acute Past Medical History: ETOH cirrhosis, esophageal varices, gastropathy Family History No pertinent family history Social History Smoking Status: Former Smoker Alcohol Use: other Housing Status: lives with family Allergies Coded Allergies: Adhesives (Unverified Allergy, Intermediate, ITCHY, 09/20/16) Iodine (Verified Allergy, Unknown, ., 09/20/16) Milk (Verified Allergy, Unknown, ., 09/20/16) Current Medications Home Meds and Scripts Medications Dose Route/Sig Max Daily Dose Days Date Category Vitamin B-1 (Thiamine HCl) 100 Mg Tab 100 Mg PO QAM 30 09/24/16 Rx Daily Sae (Multivitamins) 1 Tab Tab 1 Tab PO QAM 30 09/24/16 Rx Xifaxan (Rifaximin) 550 Mg Tab 550 Mg PO BID 30 09/24/16 Rx Aldactone (Spironolactone) 100 Mg Tab 150 Mg PO BID 30 09/24/16 Rx Chronulac (Lactulose) 10 Gm/15 Ml Syrp 30 Ml PO TID 09/20/16 Reported Lasix (Furosemide) 80 Mg Tab 80 Mg PO BID 09/20/16 Reported Folvite (Folic Acid) 1 Mg Tab 1 Mg PO DAILY 09/20/16 Reported Lipitor (Atorvastatin Calcium) 20 Mg Tab 20 Mg PO HS 09/20/16 Reported Review of Systems Constitutional: No chills, No fever Respiratory: No cough, No shortness of breath Cardiac: No chest pain Abdomen: + GI bleeding, + vomiting, No diarrhea, No nausea, No pain Skin: + jaundice Physical Exam Date Time Temp Pulse Resp B/P Pulse Ox O2 Delivery O2 Flow Rate FiO2 10/14/16 10:20 108 10/14/16 10:19 96 24 98/46 97 Nasal Cannula 2.0 10/14/16 10:00 Room Air General Appearance: + mild distress (hematemsis, staff at bedside) Eyes: PERRL ENT: hearing grossly normal Neck: supple Respiratory/Chest: chest non-tender, no respiratory distress, no accessory muscle use Cardiovascular: + tachycardia Abdomen: soft, no organomegaly, no pulsatile mass Neurologic/Psych: alert, normal mood/affect, oriented x 3 Skin: + jaundice Laboratory Results Last 24 Hours Test 10/14/16 10:06 10/14/16 10:11 10/14/16 10:17 Bedside Hemoglobin 5.8 g/dl Bedside Hematocrit 17 % Bedside Sodium 127 mEq/L Bedside Potassium 5.1 mEq/L Bedside Chloride 94 mEq/L Bedside Total CO2 18 mEq/l Anion Gap 21.0 mmol/L Bedside Blood Urea Nitrogen 49 mg/dl Bedside Creatinine 1.1 mg/dl Bedside Glucose (other) 108 mg/dl Bedside Ionized Calcium (Erwin) 1.03 mmol/l Impression Patient is a 76 year old female with ETOH cirrhosis, G1 varices and gastropathy with melena and hematemesis x 3 days, concerned w/ varices bleed. Plan NPO EGD in OR PPI bolus and drip Octreotide 1 G Rocephin daily 1 unit packed RBC wide open Transfuse as needed Further recommendations pending results of EGD. Attg addendum: I interviewed and examined pt, reviewed chart and labs. Pt is a poor historiahn. She has a h/o cirrhosis, s/p recent admissions for vol overload, HE, and prior admisssion to [facility] for hematemesis, now admit with 3 d of vomiting and melena. She had a systolic BP of 100's and was tachy to 100's when seen this am, and was retching during interview. On exam, she was alert, answering questions, with mild abd distention and asymmetric pedal edema, without tremor or asterixis with 1 + radial uplses and warm extrem. BUN was increased to 50's and hgb was mid 5's, with last Hgb in August around 8. A prior EGD within the past year showed g1 varices. Plan for vol resuscitation with blood , crystalloid., abx, PPI and octreotide drip. Urgent EGD in OR.
[2016-10-14] MEDS: OCTREOTIDE ACETATE INJ 500 MCG in NSS 100ML IV SCH ×3 (10:42→21:53)
[2016-10-14] MEDS: PANTOprazole INJ 40 MG in DEXTROSE 5% 100ML IV SCH ×3 (10:42→21:53)
[2016-10-14] MEDS ORDERED: ONDANSETRON INJ 2 MG/ML 2 ML VIAL ONE ×3 (10:43→16:21)
[2016-10-14] MEDS ORDERED: FENTANYL CITRATE INJ 50 MCG/1 ML 2 ML VIAL ONE (11:13)
[2016-10-14] MEDS ORDERED: DEXAMETHASONE SOD INJ 4 MG/ML VIAL ONE (11:13)
[2016-10-14] MEDS ORDERED: LIDOCAINE HCL 2% 2 ML VIAL (20MG/ML) ONE ×2 (11:13→15:20)
[2016-10-14] MEDS ORDERED: PROPOFOL IV EMULSION 10 MG/ML 20 ML VIAL IV ONE ×2 (11:13→15:20)
[2016-10-14] MEDS ORDERED: ONDANSETRON INJ 2 MG/ML 2 ML VIAL IV PRN ×2 (11:15→16:45)
[2016-10-14] MEDS ORDERED: NURSING VERBAL MED ORDER ONE (11:30)
[2016-10-14 11:42] LABS: PARTIAL THROMBOPLASTIN RATIO 1.2; PROTHROMBIN TIME (PATIENT) 22.1 SECONDS (9.0-12.0)
[2016-10-14 12:02] LABS: HEMATOCRIT 16.6 % (37-47); MEAN CELL VOLUME 106.4 fL (80-100); MEAN CORPUSCULAR HEMOGLOBIN 34.6 pg (25-34); MEAN CORPUSCULAR HGB CONC 32.5 g/dl (32-36); MEAN PLATELET VOLUME 10.8 fL (7.4-10.4); PLATELET COUNT 237 K/uL (130-400); RED BLOOD COUNT 1.56 M/uL (4.2-5.4); WHITE BLOOD COUNT 15.78 K/uL (4.8-10.8)
[2016-10-14 12:05] LABS: BUN/CREATININE RATIO 41.4 (10-20); CREATININE 1.2 mg/dl (0.60-1.20); POTASSIUM 4.7 mmol/L (3.5-5.1)
[2016-10-14 12:15] LABS: ACANTHOCYTES 1+; BASO % 0.3 %; BASO ABS # 0.05 K/uL (0-0.2); COMPLETE YES; LYMPH % 12.1 %; LYMPH ABS # 1.91 K/uL (1.2-3.4); MONO % 9.7 %; NEUT % 76.9 %
[2016-10-14] MEDS: SODIUM CHLORIDE 0.9% 1000ML 1,000 ML IV SCH (13:39)
[2016-10-14] MEDS: CEFTRIAXONE SOD INJ 1 GM in DEXTROSE 5% ADD-VANTAGE 50ML 50 ML IV SCH (13:40)
--- NOTE | 2016-10-14 13:45 | DIAGNOSTIC IMAGING REPORT ---
CHEST ONE VIEW PORTABLE CLINICAL HISTORY: Right IJ catheter placement evaluation. COMPARISON STUDY: No previous studies for comparison. FINDINGS: There is a metallic stent/cage projected over the ascending thoracic aorta. The heart is the upper limits of normal in size. There is no overt failure. There are no pleural effusions. There is an old right-sided rib fracture. There is a right internal jugular central venous catheter tip which projects over the superior vena cava. There is no evidence of pneumothorax. No pleural effusions are visualized.[ IMPRESSION: No evidence of pneumothorax status post placement of right internal jugular central venous catheter. The tip projects over the superior vena cava Electronically signed by: Noah Kent M.D. 10/14/2016 1:44 PM Dictated Date/Time: 10/14/2016 1:43 PM
[2016-10-14] MEDS ORDERED: PHYTONADIONE INJ 10 MG in SODIUM CHLORIDE 0.9% 50ML 50 ML IV ONE (14:15)
[2016-10-14 14:53] LABS: MAGNESIUM 2.1 mg/dl (1.8-2.4); PHOSPHORUS 4.5 mg/dl (2.5-4.9)
[2016-10-14] MEDS ORDERED: KETAMINE HCL INJ 50 MG/ML 10 ML VIAL ONE (15:20)
[2016-10-14] MEDS ORDERED: SODIUM CHLORIDE 0.9% INJ 10 ML VIAL ONE (15:20)
[2016-10-14] MEDS ORDERED: SUCCINYLCHOLINE CHLORIDE 20 MG/ML 10 ML VIAL IV ONE (15:20)
[2016-10-14] MEDS ORDERED: ETOMIDATE 2 MG/ML 20 ML VIAL IV ONE (15:20)
--- NOTE | 2016-10-14 16:13 | History and Physical ---
History & Physical Date & Time of Service: October 14, 2016 ~ 11:00 Chief Complaint: Vomiting Blood Primary Care Physician: Sai Hendrix M.D.([facility]) History of Present Illness 76 year old female who presents to the ER with reports of vomiting blood. She reports her symptoms have been going on for the past 5 days. Patient was recently admitted to [facility] 09/20 - 09/24 for volume overload due to alcoholic liver cirrhosis. Patient was treated with IV Lasix and albumin. At discharge, her spironolactone dose was increased. Patient reports she had been doing well up until 5 days ago. She reports multiple episodes of vomiting dark red blood and having dark diarrheal stools. She reports some generalized abdominal pain from the vomiting. She reports her lower extremity edema is improving. She notes mildly worsening exertional shortness of breath. She denies chest pain and shortness of breath. No lightheadedness, dizziness, diaphoresis, or syncope. She denies fever and chills. No urinary symptoms. In the ER, patient is found to have hgb 5.8. BPs are borderline and she is tachycardic in the 110s. She was treated with IVF, IV Protonix, IV octreotide, IV Pepcid, and Zofran. GI was notified by the ER and she is going emergently to the OR for an EGD. Past Medical/Surgical History Medical Problems: (1) Alcoholic cirrhosis Status: Chronic (2) Anxiety Status: Chronic (3) Esophageal varices Permanent Comment: 11/2015 EGD - grade I non bleeding varices Status: Chronic (4) HLD (hyperlipidemia) Status: Chronic (5) Non-compliance Status: Chronic Surgical Problems: (1) History of hysterectomy Status: Chronic (2) S/P TAVR (transcatheter aortic valve replacement) Status: Chronic Family History Diabetes mellitus FATHER MOTHER FH: CAD (coronary artery disease) MOTHER Social History Smoking Status: Former Smoker Alcohol Use: former heavy alochol use Allergies Coded Allergies: Adhesives (Unverified Allergy, Intermediate, ITCHY, 09/20/16) Iodine (Verified Allergy, Unknown, ., 09/20/16) Milk (Verified Allergy, Unknown, ., 09/20/16) Home Medications Scheduled Atorvastatin (Lipitor), 20 MG PO HS Folic Acid (Folvite), 1 MG PO DAILY Furosemide (Lasix), 80 MG PO BID Lactulose (Chronulac), 30 ML PO TID Multivitamins (Daily Sae), 1 TAB PO QAM Rifaximin (Xifaxan), 550 MG PO BID Spironolactone (Aldactone), 150 MG PO BID Thiamine HCl (Vitamin B-1), 100 MG PO QAM Review of Systems ROS per HPI, all other systems reviewed and negative Physical Exam Vital Signs Date Time Temp Pulse Resp B/P Pulse Ox O2 Delivery O2 Flow Rate FiO2 10/14/16 15:12 36.7 92 20 128/53 100 10/14/16 14:52 36.6 97 16 134/63 96 10/14/16 14:32 36.4 95 20 127/91 94 10/14/16 13:41 36.7 96 16 110/44 99 2.0 10/14/16 13:10 36.7 102 20 104/44 94 2.0 10/14/16 12:55 36.5 100 20 90/54 95 10/14/16 12:20 36.4 98 18 102/43 95 Nasal Cannula 2.0 10/14/16 12:20 Nasal Cannula 2.0 10/14/16 11:19 102 18 114/52 97 Nasal Cannula 2.0 10/14/16 11:00 103 18 114/52 94 Nasal Cannula 2.0 10/14/16 10:56 97 Room Air 10/14/16 10:45 112 15 96 Nasal Cannula 2.0 10/14/16 10:30 101 20 101/44 97 Nasal Cannula 2.0 10/14/16 10:20 108 10/14/16 10:19 96 24 98/46 97 Nasal Cannula 2.0 10/14/16 10:00 Room Air General Appearance: no apparent distress Head: normocephalic Eyes: + pertinent finding (scleral icterus) ENT: hearing grossly normal Neck: supple, no JVD Respiratory/Chest: lungs clear, normal breath sounds, no respiratory distress Cardiovascular: regular rate, rhythm, no edema, normal peripheral pulses Abdomen/GI: non tender, soft, + distended Extremities/Musculoskelatal: normal inspection, no calf tenderness Neurologic/Psych: no motor/sensory deficits, alert, normal mood/affect, oriented x 3 Skin: + jaundice Diagnostics Laboratory Results Results Past 24 Hours Test 5/15/17 10:17 10/14/16 11:00 10/14/16 14:00 Range/Units Bedside Hemoglobin 5.8 12.0-16.0 g/dl Bedside Hematocrit 17 37-47 % Bedside Sodium 127 135-144 mEq/L Bedside Potassium 5.1 3.3-5.0 mEq/L Bedside Chloride 94 101-112 mEq/L Bedside Total CO2 18 24-31 mEq/l Anion Gap 21.0 12.0 3-11 mmol/L Bedside Blood Urea Nitrogen 49 7-18 mg/dl Bedside Creatinine 1.1 0.6-1.3 mg/dl Bedside Glucose (other) 108 70-99 mg/dl Bedside Ionized Calcium (Erwin) 1.03 1.12-1.32 mmol/l White Blood Count 15.78 4.8-10.8 K/uL Red Blood Count 1.56 4.2-5.4 M/uL Hemoglobin 5.4 12.0-16.0 g/dL Hematocrit 16.6 37-47 % Mean Corpuscular Volume 106.4 80-100 fL Mean Corpuscular Hemoglobin 34.6 25-34 pg Mean Corpuscular Hemoglobin Concent 32.5 32-36 g/dl Platelet Count 237 130-400 K/uL Mean Platelet Volume 10.8 7.4-10.4 fL Neutrophils (%) (Auto) 76.9 % Lymphocytes (%) (Auto) 12.1 % Monocytes (%) (Auto) 9.7 % Eosinophils (%) (Auto) 0.0 % Basophils (%) (Auto) 0.3 % Neutrophils # (Auto) 12.13 1.4-6.5 K/uL Lymphocytes # (Auto) 1.91 1.2-3.4 K/uL Monocytes # (Auto) 1.53 0.11-0.59 K/uL Eosinophils # (Auto) 0.00 0-0.5 K/uL Basophils # (Auto) 0.05 0-0.2 K/uL RDW Standard Deviation 69.0 36.4-46.3 fL RDW Coefficient of Variation 18.5 11.5-14.5 % Immature Granulocyte % (Auto) 1.0 % Immature Granulocyte # (Auto) 0.16 0.00-0.02 K/uL Acanthocytes 1+ Prothrombin Time 22.1 9.0-12.0 SECONDS Prothromb Time International Ratio 2.0 0.9-1.1 Activated Partial Thromboplast Time 31.1 21.0-31.0 SECONDS Partial Thromboplastin Ratio 1.2 Sodium Level 130 136-145 mmol/L Potassium Level 4.7 3.5-5.1 mmol/L Chloride Level 95 98-107 mmol/L Carbon Dioxide Level 23 21-32 mmol/L Blood Urea Nitrogen 50 7-18 mg/dl Creatinine 1.20 0.60-1.20 mg/dl Est Creatinine Clear Calc Drug Dose 33.3 ml/min Estimated GFR () 51.6 Estimated GFR (Non- 44.5 BUN/Creatinine Ratio 41.4 10-20 Random Glucose 134 70-99 mg/dl Calcium Level 10.0 8.5-10.1 mg/dl Phosphorus Level 4.5 2.5-4.9 mg/dl Magnesium Level 2.1 1.8-2.4 mg/dl Total Bilirubin 11.8 0.2-1 mg/dl Direct Bilirubin 4.7 0-0.2 mg/dl Aspartate Amino Transf (AST/SGOT) 40 15-37 U/L Alanine Aminotransferase (ALT/SGPT) 35 12-78 U/L Alkaline Phosphatase 76 45-117 U/L Ammonia 23.0 11-32 umol/L Total Protein 5.9 6.4-8.2 gm/dl Albumin 2.9 3.4-5.0 gm/dl Lipase 507 73-393 U/L Microbiology Results 10/14/16 MRSA DNA Surveillance Screen, Received Pending Impression Assessment and Plan PROFOUND ANEMIA DUE TO UPPER GI BLEED, LIKELY VARICEAL - admit to ICU - patient presenting with hematemesis and black stools x 5 days; in the ER, found to have hgb 5.8, BP borderline, mild tachycardia - EGD 11/2015 - grade I varices - GI contacted by ED staff and patient is going emergently to OR for EGD - transfuse with 2 units PRBC STAT, IVF - s/p Pepcid, Protonix, and Octreotide in ED - continue with Protonix and Octreotide drips - Rocephin for SBP prophylaxis - case discussed with Dr. Rod (ICU) and FABI Ho (GI) ALCOHOLIC CIRRHOSIS - LFTs and INR near baseline from prior admission - holing diuretics, Lactulose, and Xifaxan for now due to acute upper GI bleeding - patient continues to abstain from alcohol DVT PROPHYLAXIS - SCDs due to bleeding, elevated INR CODE STATUS - Patient is a full code as per my discussion with her. DISPO - In my clinical judgment this beneficiary meets acute admission criteria, established by [facility], that includes being hospitalized through two midnights. Attending Note: Patient is a 76 yr old female with PMH of presents with history of ETOH cirrhosis, Esophageal Varices, HLP and other problems presents with five day history of melena, hematemesis and generalized abdominal pain associated with vomiting. She was found have severe anemia with Hb of 5.8. Patient was transferred to OR for urgent EGD and was found to have grade II esophageal Varices, portal gastropathy and underwent banding to lower 3rd of esophagus. Seen and examined after EGD, poor historian, drowsy. Physical Exam: General Appearance:Chronically ill appearing, no apparent distress Head: normocephalic, Atraumatic Eyes: normal inspection, EOMI, PERRL, +Icterus Neck: supple, Trachea midline Respiratory/Chest: Normal breath sounds, CTA Cardiovascular: S1, S2, + systolic murmur Abdomen/GI:Soft, non tender, distended, Bowel sounds present Extremities/Musculoskelatal:normal inspection, B/L edema L>R Neurologic/Psych:grossly no focal neurological deficits Skin:normal color,warm Assessment and Plan: Hematemesis/Melena: Likely secondary to Variceal bleeding due to Alcoholic Cirrhosis S/P EGD:grade II esophageal Varices, portal gastropathy and underwent banding to lower 3rd of esophagus. Transfuse PRBCs PRN to keep Hb >7.0 Continue IV fluids, Octreotide and Protonix ggt INR:2.0: getting Vit K and FFP Monitor Hb Appreciate GI help Continue IV antibiotics empirically Resume diuretics when appropriate Chronic Hyponatremia: Secondary to cirrhosis Monitor sodium levels I personally reviewed the record. Patient is interviewed and examined at bedside. Patient's care is coordinated with Karina Blake NP. Please refer to the documentation above for details of patient's presentation and for discussion of other issues. Advanced Directives Existing Living Will: No Existing Power of Service Car Driver: No VTE Prophylaxis VTE Risk Assessment Done? Y/N: Yes Risk Level: Moderate
[2016-10-14] MEDS ORDERED: PHENYLEPHRINE 100MCG/ML 5ML SYR ONE (16:26)
[2016-10-14 16:34] LABS: URINE APPEARANCE CLOUDY (CLEAR); URINE COLOR DK YELLOW; URINE NITRITE NEG (NEG); URINE SPECIFIC GRAVITY 1.019 (1.000-1.030); UROBILINOGEN NEG (NEG)
[2016-10-14 16:35] LABS: MANUAL MICROSCOPIC REQUIRED? NO; REVIEW REQ? YES; URINE BILIRUBIN 1+ (NEG)
[2016-10-14 16:45] LABS: URINE PATH CASTS 0-3 GRANULAR CASTS /lpf (0)
[2016-10-14] MEDS ORDERED: ATROPINE SULFATE 0.1 MG/ML 5ML SYR IV PRN (16:45)
[2016-10-14] MEDS ORDERED: EpHEDrine SULFATE INJ 50 MG/ML AMP IV PRN (16:45)
[2016-10-14] MEDS ORDERED: FENTANYL CITRATE INJ 50 MCG/1 ML 2 ML VIAL IV PRN (16:45)
--- NOTE | 2016-10-14 16:45 | EMERGENCY ROOM VISIT NOTE ---
History Report prepared by Megan: Radha Sin Under the Supervision of: Dr. Paulie Rudd M.D. First contact with patient: 10:05 Chief Complaint: REFERRED BY DOCTOR Stated Complaint: LIVER PROBLEMS, REFERRED FROM [facility] History of Present Illness The patient is a 76 year old female who presents to the Emergency Room with complaints of intermittent hematemesis for the past two days. The patient has been vomiting large amounts of blood for two days. She is also experiencing melena and diffuse abdominal pain. She rates her pain as an 8/10 in severity. She had two episodes of melanotic stool this morning. The patient has a history of cirrhosis of the liver. She has not taken her medications in 2 days because she can't keep them down. Pt denies LOC, headache, fevers, chills, diaphoresis, visual changes, neck pain, chest pain, breathing difficulties, urinary symptoms , rash, or other complaints. Source of History: patient Onset: 2 days ago Position: abdomen Symptom Intensity: 8/10 Quality: other (hematemesis) Timing: intermittent Associated Symptoms: + abdominal pain, + melena, + nausea, + vomiting Review of Systems See HPI for pertinent positives and negatives. A total of ten systems were reviewed and were otherwise negative. Past Medical & Surgical Medical Problems: (1) Alcoholic cirrhosis (2) Anxiety (3) Esophageal varices (4) HLD (hyperlipidemia) (5) Non-compliance Surgical Problems: (1) History of hysterectomy (2) S/P TAVR (transcatheter aortic valve replacement) Family History No pertinent family history Social History Smoking Status: Former Smoker Alcohol Use: other (alcoholic) Housing Status: lives with family Current/Historical Medications Scheduled Atorvastatin (Lipitor), 20 MG PO HS Folic Acid (Folvite), 1 MG PO DAILY Furosemide (Lasix), 80 MG PO BID Lactulose (Chronulac), 30 ML PO TID Multivitamins (Daily Sae), 1 TAB PO QAM Rifaximin (Xifaxan), 550 MG PO BID Spironolactone (Aldactone), 150 MG PO BID Thiamine HCl (Vitamin B-1), 100 MG PO QAM Allergies Coded Allergies: Adhesives (Unverified Allergy, Intermediate, ITCHY, 09/20/16) Iodine (Verified Allergy, Unknown, ., 09/20/16) Milk (Verified Allergy, Unknown, ., 09/20/16) Physical Exam Vital Signs Date Time Temp Pulse Resp B/P Pulse Ox O2 Delivery O2 Flow Rate FiO2 10/14/16 11:00 103 18 114/52 94 Nasal Cannula 2.0 10/14/16 11:00 103 18 114/52 94 10/14/16 10:56 97 Room Air 10/14/16 10:45 112 15 96 Nasal Cannula 2.0 10/14/16 10:45 112 15 96 10/14/16 10:30 101 20 101/44 97 Nasal Cannula 2.0 10/14/16 10:30 101 20 101/44 97 10/14/16 10:20 108 10/14/16 10:19 107 16 98/46 10/14/16 10:19 96 24 98/46 97 Nasal Cannula 2.0 10/14/16 10:15 111 26 10/14/16 10:00 Room Air Physical Exam GENERAL: Awake, alert, well-appearing, in no distress HENT: Normocephalic, atraumatic. Oropharynx unremarkable. EYES: Normal conjunctiva. Sclera are icteric. NECK: Supple. No nuchal rigidity. FROM. No JVD. RESPIRATORY: Clear to auscultation. CARDIAC: Tachycardic rate, normal rhythm, systolic ejection murmur. Extremities warm and well perfused. Pulses equal. ABDOMEN: Soft, non-distended. No tenderness to palpation. No rebound or guarding. No masses. RECTAL: Deferred. MUSCULOSKELETAL: Chest examination reveals no tenderness. No joint edema. LOWER EXTREMITIES: Calves are equal size bilaterally and non-tender. 3+ lower extremity edema. No discoloration. NEURO: Normal sensorium. No sensory or motor deficits noted. SKIN: Jaundiced. No rash noted. Medical Decision & Procedures Laboratory Results 10/14/16 11:00 Red Blood Count 1.56, Mean Corpuscular Volume 106.4, Mean Corpuscular Hemoglobin 34.6, Mean Corpuscular Hemoglobin Concent 32.5, Mean Platelet Volume 10.8, Neutrophils (%) (Auto) 76.9, Lymphocytes (%) (Auto) 12.1, Monocytes (%) ( Auto) 9.7, Eosinophils (%) (Auto) 0.0, Basophils (%) (Auto) 0.3, Neutrophils # ( Auto) 12.13, Lymphocytes # (Auto) 1.91, Monocytes # (Auto) 1.53, Eosinophils # ( Auto) 0.00, Basophils # (Auto) 0.05 Test 10/14/16 10:17 10/14/16 11:00 Bedside Hemoglobin 5.8 g/dl (12.0-16.0) Bedside Hematocrit 17 % (37-47) Bedside Sodium 127 mEq/L (135-144) Bedside Potassium 5.1 mEq/L (3.3-5.0) Bedside Chloride 94 mEq/L (101-112) Bedside Total CO2 18 mEq/l (24-31) Bedside Blood Urea Nitrogen 49 mg/dl (7-18) Bedside Creatinine 1.1 mg/dl (0.6-1.3) Bedside Glucose (other) 108 mg/dl (70-99) Bedside Ionized Calcium (Erwin) 1.03 mmol/l (1.12-1.32) White Blood Count 15.78 K/uL (4.8-10.8) Red Blood Count 1.56 M/uL (4.2-5.4) Hemoglobin 5.4 g/dL (12.0-16.0) Hematocrit 16.6 % (37-47) Mean Corpuscular Volume 106.4 fL (80-100) Mean Corpuscular Hemoglobin 34.6 pg (25-34) Mean Corpuscular Hemoglobin Concent 32.5 g/dl (32-36) Platelet Count 237 K/uL (130-400) Mean Platelet Volume 10.8 fL (7.4-10.4) Neutrophils (%) (Auto) 76.9 % Lymphocytes (%) (Auto) 12.1 % Monocytes (%) (Auto) 9.7 % Eosinophils (%) (Auto) 0.0 % Basophils (%) (Auto) 0.3 % Neutrophils # (Auto) 12.13 K/uL (1.4-6.5) Lymphocytes # (Auto) 1.91 K/uL (1.2-3.4) Monocytes # (Auto) 1.53 K/uL (0.11-0.59) Eosinophils # (Auto) 0.00 K/uL (0-0.5) Basophils # (Auto) 0.05 K/uL (0-0.2) RDW Standard Deviation 69.0 fL (36.4-46.3) RDW Coefficient of Variation 18.5 % (11.5-14.5) Immature Granulocyte % (Auto) 1.0 % Immature Granulocyte # (Auto) 0.16 K/uL (0.00-0.02) Acanthocytes 1+ Prothrombin Time 22.1 SECONDS (9.0-12.0) Prothromb Time International Ratio 2.0 (0.9-1.1) Activated Partial Thromboplast Time 31.1 SECONDS (21.0-31.0) Partial Thromboplastin Ratio 1.2 Est Creatinine Clear Calc Drug Dose 33.3 ml/min Phosphorus Level 4.5 mg/dl (2.5-4.9) Magnesium Level 2.1 mg/dl (1.8-2.4) Total Bilirubin 11.8 mg/dl (0.2-1) Direct Bilirubin 4.7 mg/dl (0-0.2) Aspartate Amino Transf (AST/SGOT) 40 U/L (15-37) Alanine Aminotransferase (ALT/SGPT) 35 U/L (12-78) Alkaline Phosphatase 76 U/L (45-117) Ammonia 23.0 umol/L (11-32) Total Protein 5.9 gm/dl (6.4-8.2) Albumin 2.9 gm/dl (3.4-5.0) Lipase 507 U/L (73-393) Laboratory results reviewed by me. Medications Administered Medications (Trade) Dose Ordered Sig/Hernandez Route Start Time Stop Time Status Last Admin Dose Admin Sodium Chloride (Nss 1000ml) 1,000 ml @ 999 mls/hr Q1H1M STAT IV 10/14/16 10:06 10/14/16 11:06 DC 10/14/16 10:37 999 MLS/HR Pantoprazole Sodium (Protonix IV Bolus/Drip) 1 ea NOW STAT IV 10/14/16 10:11 10/14/16 10:13 DC 10/14/16 10:11 1 EA Famotidine 20 mg 20 mg ONE STAT IV 10/14/16 10:11 10/14/16 10:44 DC 10/14/16 10:37 20 MG Pantoprazole Sodium 80 mg/ Dextrose 120 ml @ 480 mls/hr TODAY@1030 IV 10/14/16 10:30 10/14/16 10:44 DC 10/14/16 10:42 480 MLS/HR Pantoprazole Sodium 40 mg/ Dextrose 100 ml @ 20 mls/hr Q5H IV 10/14/16 10:45 11/13/16 10:44 10/14/16 10:42 20 MLS/HR Octreotide Acetate 100 mcg/ Syringe 10 ml @ 3 mls/min TODAY@1030 IV 10/14/16 10:30 10/14/16 10:34 DC 10/14/16 10:42 3 MLS/MIN Octreotide Acetate/Sodium Chloride (Sandostatin Inj/ Nss 100ml) 105 ml @ 10 mls/hr [id number] IV 10/14/16 10:30 11/13/16 10:29 10/14/16 13:30 10 MLS/HR Ondansetron HCl (Zofran Inj) 4 mg STK-MED ONCE .ROUTE 10/14/16 10:43 10/14/16 10:44 DC 10/14/16 11:01 4 MG Ondansetron HCl (Zofran Inj) 4 mg Q6H PRN IV 10/14/16 11:15 11/13/16 11:14 10/14/16 12:22 4 MG ECG Indication: vomiting Rate (beats per minute): 103 Rhythm: sinus tachycardia Findings: PAC, T-wave inversion (Lateral) ED Course 1005: The patient was evaluated in room B1. A complete history and physical exam was performed. 1006: NSS 1000 ml @ 999 mls/hr IV 1011: Octreotide Acetate IV Bolus/Drip, Famotidine 20 mg IV, Pantoprazole Sodium IV Bolus/Drip 1018: I spoke with Dr. Feliciano of GI. We discussed the patient's case and he will come to the ED to evaluate the patient. 1020: I consented the patient and she agreed to a blood transfusion. 1028: At this time FABI Ho with GI is in the room evaluating the patient. Dr. Feliciano is on his way to the ED. 1030: Octreotide Acetate 500 mcg/Sodium Chloride 105 ml @ 10 mls/hr IV, Octreotide Acetate 100 mcg 10 ml @ 3 mls/min IV, Pantoprazole Sodium 80 mg/ Dextrose 120 ml @ 480 mls/hr IV 1037: I spoke with FABI Moran. We discussed the patient's results and treatment plan. The patient will be evaluated by the [facility] for further management. 1039: I reassessed the patient at this time. Dr. Feliciano was in the room. I discussed the results and treatment plan with the patient. I answered all pertaining questions that she had. She expressed understanding and verbalized agreement. 1043: Zofran 4 mg IV 1045: Pantoprazole Sodium 40 mg/Dextrose 100 ml @ 20 mls/hr IV 1111: I reassessed the patient at this time. She is feeling better and resting more comfortably. Medical Decision Triage Nursing notes reviewed. The patient's presentation and history were concerning for gastrointestinal bleeding. Etiologies such as peptic ulcer disease, variceal bleed, gastritis, diverticulosis, AVM, coagulopathy, colitis, inflammatory bowel disease, malignancy,Holly-Grullon tear, esophagitis, epistaxis, fissure, hemorrhoids, as well as others were entertained. The patient has a history of alcoholic cirrhosis and varices. She also had gastropathy noted on prior records. She had pretty significant dark hematemesis and noted black stools for 2 days. He was evaluated immediately upon arrival. IV was established. Fluids were initiated. An i-STAT was performed. The patient was found to have severe anemia. The patient was started on Pepcid, Protonix, and octreotide drip. The patient was consented for red blood cell transfusion. Gastroenterology was consulted. The patient was also found to be hyponatremic. She had a mild leukocytosis and elevated MCV on CBC. Her INR was elevated at 2.0 and her direct bili was significantly elevated at 11.8. This is concerning given her history of liver disease. Internal medicine was also consulted to assist with admission. Given the amount of blood expelled and her severe anemia with her prior history gastroenterology, Dr. Feliciano felt it was necessary to take the patient emergently to the operating suite for endoscopic evaluation and treatment. The patient was reassessed and was feeling better. Vital signs were stable. The chart was completed utilizing [employer] voice recognition software. Grammatical errors, random word insertions, pronoun errors, and incomplete sentences are an occasional consequence of this system due to software limitations, ambient noise, and hardware issues. Any formal questions or concerns about the content, text, or information contained within the body of this dictation should be directly addressed to the physician for clarification. Consults Time Called: 1016 Consulting Physician: Dr. Feliciano Returned Call: [phone] Feliciano of GI. We discussed the patient's case and he will come to the ED to evaluate the patient. Additional Consults: Time Called: 1035 Consulted Physician: FABI Moran Returned Call: [phone] Additional Comments: I spoke with Karina Blake PA-C. We discussed the patient's results and treatment plan. The patient will be evaluated by the [facility] for further management. Impression Primary Impression: Acute GI bleeding Additional Impressions: Severe anemia Jaundice Esophageal varices Critical Care I have personally spent greater than 45 minutes of critical care time in the direct management of this patient. This includes bedside care, interpretation of diagnostic studies, and testing, discussion with consultants, patient, and family members, and other required patient management activities. This 45 minutes is in excess of all separately billable procedures. Scribe Attestation The scribe's documentation has been prepared under my direction and personally reviewed by me in its entirety. I confirm that the note above accurately reflects all work, treatment, procedures, and medical decision making performed by me. Departure Information Dispostion Being Evaluated By Hospitalist Referrals Sai Hendrix M.D.([facility]) (PCP) Patient Instructions My [facility] Problem Qualifiers
--- NOTE | 2016-10-14 16:57 | GI REPORT ---
Procedure Date: 10/14/2016 11:19 AM Procedure: Upper GI endoscopy Indications: Hematemesis Medicines: See the Anesthesia note for documentation of the administered medications Complications: No immediate complications. Estimated Blood Loss: Estimated blood loss: none. Procedure: Pre-Anesthesia Assessment: - ASA Grade Assessment: IV - A patient with severe systemic disease that is a constant threat to life. After obtaining informed consent, the endoscope was passed under direct vision. Throughout the procedure, the patient's blood pressure, pulse, and oxygen saturations were monitored continuously. The Scope was introduced through the mouth, and advanced to the second part of duodenum. The upper GI endoscopy was accomplished without difficulty. The patient tolerated the procedure well. Findings: The GE junction was at 40 cm. There were two columns of grade 2 varices at the GE junction. There were small combs red spots on each column in the lower esophagus, but no stigmata of recent bleeding. There was a ring at the GE junction. There was a small hiatal hernia. There was a large amount of coffee grounds in the stomach - approximately 500 cc was suctioned. There was scant red blood and a small clot suctioned from the fundus. There were no gastric varices. There were mild changes of portal gastropathy in the body. The antrum was normal. The duodenum was normal. Three bands were successfully placed in the lower third of the esophagus. Impression: - Non-bleeding grade II esophageal varices. - Two bands were successfully placed in the lower third of the esophagus. - Ring. - Hiatal hernia. - Mild portal gastropathy. Recommendation: - Discharge patient to ICU, - NPO today except meds; may have sips/chips. - Cont Octreotide drip, PPI gtt x 3 days, and abx x 7 days. - Transfuse for goal hgb 7. Donna Feliciano M.D. Donna Feliciano MD 10/14/2016 4:57:39 PM This report has been signed electronically. Note Initiated On: 10/14/2016 11:19 AM I attest to the content of the Intraoperative Record and orders documented therein, exceptions below
--- NOTE | 2016-10-14 17:22 | Anesthesiology Progress Note ---
Anesthesia Post Op Note Date & Time October 14, 2016 at 17:22 Vital Signs Pain Intensity: 0 Vital Signs Past 12 Hours Date Time Temp Pulse Resp B/P Pulse Ox O2 Delivery O2 Flow Rate FiO2 10/14/16 17:10 94 20 131/87 100 Nasal Cannula 4 10/14/16 17:00 36.1 101 27 122/64 100 Mask 10 10/14/16 16:00 Nasal Cannula 2.0 10/14/16 15:45 93 16 138/58 100 10/14/16 15:45 36.7 78 20 135/78 98 2.0 10/14/16 15:30 90 13 131/58 100 10/14/16 15:16 95 15 111/63 100 10/14/16 15:15 95 16 100 10/14/16 15:12 36.7 92 20 128/53 100 10/14/16 15:00 93 18 128/53 100 10/14/16 14:52 36.6 97 16 134/63 96 10/14/16 14:45 95 14 134/63 100 10/14/16 14:45 95 10 134/63 100 10/14/16 14:35 95 16 100 10/14/16 14:32 36.4 95 20 127/91 94 10/14/16 14:30 94 16 127/51 100 10/14/16 14:30 94 16 127/51 100 10/14/16 14:20 100 14 100 10/14/16 14:15 95 6 126/52 100 10/14/16 14:15 95 16 126/52 100 10/14/16 14:05 95 16 100 10/14/16 14:00 99 14 124/102 100 10/14/16 14:00 99 14 124/102 100 10/14/16 13:50 102 14 100 10/14/16 13:45 98 13 100/41 100 10/14/16 13:45 98 13 100/41 100 10/14/16 13:41 36.7 96 16 110/44 99 2.0 10/14/16 13:40 98 10 110/44 100 10/14/16 13:40 98 14 110/44 100 10/14/16 13:35 98 13 100 10/14/16 13:30 92 19 101/45 99 10/14/16 13:30 92 19 101/45 99 10/14/16 13:20 99 12 116/45 92 10/14/16 13:20 99 12 116/45 92 10/14/16 13:15 102 13 95 10/14/16 13:10 100 10 104/44 93 10/14/16 13:10 100 10 104/44 93 10/14/16 13:10 36.7 102 20 104/44 94 2.0 10/14/16 13:05 98 12 95 10/14/16 13:00 100 10 108/56 96 10/14/16 13:00 100 10 108/56 96 10/14/16 12:55 36.5 100 20 90/54 95 10/14/16 12:50 103 19 90/54 94 10/14/16 12:50 103 19 90/54 94 10/14/16 12:45 99 9 100 10/14/16 12:41 97 4 104/38 100 10/14/16 12:41 97 14 104/38 100 10/14/16 12:35 99 16 96 10/14/16 12:20 36.4 98 18 102/43 95 Nasal Cannula 2.0 10/14/16 12:20 Nasal Cannula 2.0 10/14/16 11:19 102 18 114/52 97 Nasal Cannula 2.0 10/14/16 11:00 103 18 114/52 94 Nasal Cannula 2.0 10/14/16 11:00 103 18 114/52 94 10/14/16 10:56 97 Room Air 10/14/16 10:45 112 15 96 Nasal Cannula 2.0 10/14/16 10:45 112 15 96 10/14/16 10:30 101 20 101/44 97 Nasal Cannula 2.0 10/14/16 10:30 101 20 101/44 97 10/14/16 10:20 108 10/14/16 10:19 107 16 98/46 10/14/16 10:19 96 24 98/46 97 Nasal Cannula 2.0 10/14/16 10:15 111 26 10/14/16 10:00 Room Air Notes Mental Status: alert / awake / arousable, participated in evaluation Pt Amnestic to Procedure: Yes Nausea / Vomiting: adequately controlled Pain: adequately controlled Airway Patency, RR, SpO2: stable & adequate BP & HR: stable & adequate Hydration State: stable & adequate Anesthetic Complications: no major complications apparent
--- NOTE | 2016-10-14 17:31 | OPERATIVE REPORT ---
DATE OF OPERATION: 10/14/2016 PROCEDURE: Right internal jugular triple lumen catheter placement. PREPROCEDURE DIAGNOSIS: Acute gastrointestinal bleed. POSTPROCEDURE DIAGNOSIS: Same. INDICATION: Need for reliable IV access for multiple continuous infusions and blood transfusions. TIME OF PROCEDURE: Approximately 2:00 p.m. DESCRIPTION OF PROCEDURE: After informed consent was obtained, a timeout was performed. The patient was placed supine and I donned a hat, mask, sterile gown and sterile gloves. I cleaned the right neck, shoulder, and superior chest with chlorhexidine, which was allowed to dry. I then draped the patient from head to toe in sterile fashion. Using 2 mL of 1% lidocaine, I numbed the skin adjacent to the right internal jugular vein. I then used the ultrasound to cannulate the right internal jugular vein without difficulty. I met some resistance in trying to pass the wire, so the needle was removed. Hemostasis was achieved and I cannulated the right internal jugular vein again. The wire passed easily through the needle and the needle was removed. A #11 scalpel blade was used to make a matteo in the skin adjacent to the wire. The vein was then dilated using the dilator from the Arrow triple lumen kit. The dilator was removed and the triple lumen catheter was placed over the wire. The wire was then removed. This was all done in typical Seldinger fashion. All 3 ports had good blood flow and flushed easily. The line was sutured into place using 3-0 silk on a straight needle and it was also secured with a StatLock. The patient tolerated the procedure well. Follow up chest x-ray shows the tip of the catheter in the superior vena cava and no pneumothorax. I attest to the content of the Intraoperative Record and any orders documented therein. Any exceptio ns are noted below.
[2016-10-14] MEDS ORDERED: ALBUMIN HUMAN 25% 12.5 GM/50 ML VIAL IV ONE (18:15)
[2016-10-14 18:39] LABS: HEMATOCRIT 23.1 % (37-47)
[2016-10-14 18:53] LABS: BUN/CREATININE RATIO 47.4 (10-20); CALCIUM 9.3 mg/dl (8.5-10.1); CREATININE 1.1 mg/dl (0.60-1.20); POTASSIUM 4.7 mmol/L (3.5-5.1)
--- NOTE | 2016-10-14 19:14 | CRITICAL CARE CONSULTATION ---
DATE OF CONSULTATION: 10/14/2016 CHIEF COMPLAINT: Nausea and vomiting. HISTORY OF PRESENT ILLNESS: The patient is a 76-year-old woman with a history of alcoholic cirrhosis and esophageal varices. She presented to the Emergency Department this morning with complaints of nausea and vomiting which started on of last week, which is 4 days ago. She tells me she was vomiting a black coffee-groundish material and having runny black stools. She has not taken her medication in at least 3 days because she has not been able to keep anything in her stomach. She denies chest pain but has felt a bit dizzy. She denies alcohol use and raulito hematemesis or hematochezia. She was seen in the Emergency Department and given 1 liter of normal saline and eventually started on octreotide and Protonix infusions. Her hemoglobin was found to be 5.8 and a blood transfusion was ordered. She was taken to the GI suite for endoscopy; however, due to her low hemoglobin, she was instead transferred to the intensive care unit where she remains. She is presently getting her first unit of packed red blood cells and I have placed a triple lumen catheter. She reports abdominal pain presently primarily when she has to have a bowel movement. She denies shortness of breath. Her abdominal pain is described as 8/10. PAST MEDICAL HISTORY: Alcoholic cirrhosis with esophageal varices, portal hypertensive gastropathy, hiatal hernia, severe aortic stenosis, status post TAVR in August 2015, GI bleed, left bundle branch block, chronic systolic heart failure, ejection fraction 70%; alcohol withdrawal in August 2015. PAST SURGICAL HISTORY: Status post section, hysterectomy and TAVR. ALLERGIES: IODINE AND MILK. OUTPATIENT MEDICATIONS: Atorvastatin 20 mg daily, folic acid 1 mg daily, Lasix 80 mg b.i.d., lactulose 30 mg t.i.d., multivitamin daily, rifaximin 550 mg b.i.d., spironolactone 150 mg b.i.d., thiamine 100 mg daily. SOCIAL HISTORY: She quit drinking in November 2015 and denies recent tobacco use. She lives with her who left town on Friday. FAMILY HISTORY: Noncontributory. REVIEW OF SYSTEMS: Significant for an itchy right eye, increased abdominal girth and swelling in her lower extremities, poor appetite. She denies any bleeding other than her GI bleeding, falls, cough, fevers, and chills. Additional review of systems is negative or noncontributory in a 12-point system. PHYSICAL EXAMINATION: VITAL SIGNS: Temperature 36.7, heart rate 96, respiratory rate 16, blood pressure 110/44, oxygen saturation 99% on 2 liters nasal cannula. HEENT: Pupils are approximately 2 mm and minimally reactive. Scleral icterus is present. Oral mucosa is dry and she is missing many teeth. Posterior pharynx clear. NECK: No adenopathy and jugular veins are flat. Trachea midline. LUNGS: Clear to auscultation bilaterally. No rales, rhonchi or wheezes. HEART: Tachycardic, regular with a 2/6 systolic murmur heard best at the right sternal border. ABDOMEN: Distended, mildly tender diffusely with hypoactive bowel sounds. EXTREMITIES: Warm with 3+ pretibial edema. Capillary refill adequate. NEUROLOGIC: She is awake and quite talkative at times. She will fall asleep during procedures or when left alone. She follows commands and moves all 4 extremities. Sensation is grossly intact. LABORATORY DATA: White blood cell count 15.78, hemoglobin 5.4, hematocrit 16.6, platelets 237. Sodium 130, potassium 4.7, chloride 95, CO2 of 23, BUN 50, creatinine 1.2, blood sugar 134, total bilirubin 11.8, direct bilirubin 4.7, AST 40, ALT 35, total protein 5.9, albumin 2.9, lipase 507. Ammonia 23. PT 22.1, INR 2.0, PTT 31.1. PRESENT MEDICATIONS: Ceftriaxone, octreotide, Zofran, Protonix, normal saline 100 mL per hour. IMAGING DATA: Chest x-ray status post line placement shows no pneumothorax and the tip in the superior vena cava. IMPRESSION: 1. Acute gastrointestinal bleed. 2. Acute anemia of blood loss. 3. Decompensated cirrhosis. 4. Sinus tachycardia likely secondary to volume depletion. 5. History of transcatheter aortic valve replacement. 6. Coagulopathy secondary to #3. 7. History of hiatal hernia. 8. History of tobacco use. PLAN: 1. Transfuse packed red blood cells. Presently, she is hemodynamically stable, but the first unit is going in over 1 hour. 2. Continue octreotide and Protonix infusions. 3. I have ordered 10 mg of IV vitamin K. Consider 1 unit of fresh frozen plasma. 4. Trend hemoglobin and hematocrit. 5. Follow up lipase and liver function tests tomorrow. 6. GI service has already been seeing her, many thanks for their assistance in her care. 7. Continue Rocephin. 8. SCDs for DVT prophylaxis. Thank you for asking me to see this patient. Please call me with any questions or concerns. Critical care time excluding procedures is 40 minutes. MTDD
[2016-10-14 23:34] LABS: HEMATOCRIT 19.4 % (37-47)
[2016-10-15] VITALS (34 sets, daily range): BP systolic 89–146; BP diastolic 36–92; PULSE 89–108; TEMP 36.6–37; O2SAT 95–100
[2016-10-15] MEDS: PANTOprazole INJ 40 MG in DEXTROSE 5% 100ML IV SCH ×5 (02:54→21:05)
[2016-10-15] MEDS: SODIUM CHLORIDE 0.9% 1000ML 1,000 ML IV SCH ×2 (04:00→07:30)
[2016-10-15 06:07] LABS: HEMATOCRIT 24.2 % (37-47); MEAN CELL VOLUME 93.1 fL (80-100); MEAN CORPUSCULAR HEMOGLOBIN 31.5 pg (25-34); MEAN CORPUSCULAR HGB CONC 33.9 g/dl (32-36); MEAN PLATELET VOLUME 10.9 fL (7.4-10.4); PLATELET COUNT 152 K/uL (130-400); WHITE BLOOD COUNT 16.65 K/uL (4.8-10.8)
[2016-10-15 06:32] LABS: INR 1.7 (0.9-1.1); PROTHROMBIN TIME (PATIENT) 18.7 SECONDS (9.0-12.0)
[2016-10-15 06:49] LABS: BUN/CREATININE RATIO 51.8 (10-20); CALCIUM 9.3 mg/dl (8.5-10.1); POTASSIUM 4.5 mmol/L (3.5-5.1)
[2016-10-15 06:57] LABS: ALB/GLOB RATIO 1.1 (0.9-2); PHOSPHORUS 4.3 mg/dl (2.5-4.9)
[2016-10-15] MEDS: OCTREOTIDE ACETATE INJ 500 MCG in NSS 100ML IV SCH ×2 (07:30→18:25)
--- NOTE | 2016-10-15 07:53 | Gastroenterology Progress Note ---
Progress Note Date of Service: October 15, 2016 Subjective Pt evaluation today including: conversation w/ patient, physical exam, chart review, lab review Pt was seen and examined this AM. Prior to exam she was sleeping, responded promptly to her name. She tells me she has not had any nausea or vomiting this AM. Last episode was yesterday AM. She is tangential on exam - and not responding appropriately to questions. She is quite concerned about the location of her purse and and would like to have the [place] that is in her purse. She denies any fever, chills, chest pain, SOB, abdominal pain, N/V. She has had three episodes of black loose stools since being admitted to the ICU. HGB 5.4 --> 3 units RBC 1 unit FFP --> 8.2 EGD 10/14/16: Non-bleeding grade II esophageal varices Two bands were successfully placed in the lower third of the esophagus. Ring. Hiatal hernia. Mild portal gastropathy. Recommendation: NPO today except meds; may have sips/ chips. Cont Octreotide drip, PPI gtt x 3 days, and abx x 7 days. Transfuse for goal hgb 7. Review of Systems Constitutional: No chills, No fever Respiratory: No cough Cardiac: No chest pain, No edema Abdomen: No nausea, No pain, No vomiting Medications Current Inpatient Medications Medications (Trade) Dose Ordered Sig/Hernandez Route Start Time Stop Time Status Last Admin Dose Admin Pantoprazole Sodium 40 mg/ Dextrose 100 ml @ 20 mls/hr Q5H IV 10/14/16 10:45 11/13/16 10:44 10/15/16 07:26 20 MLS/HR Octreotide Acetate 500 mcg/ Sodium Chloride 105 ml @ 10 mls/hr [id number] IV 10/14/16 10:30 11/13/16 10:29 10/14/16 21:53 10 MLS/HR Ceftriaxone Sodium/Dextrose (Rocephin Inj/ Dextrose Add-[place] 50ML) 50 ml @ 100 mls/hr Q24H IV 10/14/16 13:00 10/24/16 12:59 10/14/16 13:40 100 MLS/HR Ondansetron HCl 4 mg 4 mg Q6H PRN IV 10/14/16 11:15 11/13/16 11:14 10/14/16 12:22 4 MG Sodium Chloride (Nss 1000ml) 1,000 ml @ 100 mls/hr Q10H IV 10/14/16 11:30 11/13/16 11:29 10/15/16 04:00 100 MLS/HR Heparin Sodium (Porcine) (Heparin 10 Unit/ ml 5 ml Flush) 5 ml PRN PRN FLUSH 10/15/16 01:45 11/14/16 01:44 Objective Vital Signs Date Time Temp Pulse Resp B/P Pulse Ox O2 Delivery O2 Flow Rate FiO2 10/15/16 06:00 96 17 129/65 100 136/49 10/15/16 05:45 92 13 100 144/50 10/15/16 05:30 100 29 132/60 100 135/47 10/15/16 05:15 100 14 100 117/45 10/15/16 05:00 98 13 135/60 100 127/47 10/15/16 04:45 95 14 100 130/49 10/15/16 04:30 98 13 133/61 100 130/49 10/15/16 04:15 96 17 100 146/39 10/15/16 04:01 108 22 129/52 100 128/48 10/15/16 04:00 97 15 100 117/38 10/15/16 04:00 100 Nasal Cannula 3.0 10/15/16 03:45 95 17 100 119/44 10/15/16 03:30 92 12 120/58 100 119/43 10/15/16 03:15 92 12 100 117/43 10/15/16 03:00 93 14 122/54 100 120/44 10/15/16 02:45 93 15 100 112/42 10/15/16 02:30 93 13 123/52 100 113/42 10/15/16 02:15 95 13 100 110/41 10/15/16 02:00 37.0 94 15 111/48 100 3.0 10/15/16 02:00 94 15 111/48 100 107/41 10/15/16 01:30 36.9 90 16 116/51 100 3.0 10/15/16 01:15 100 10/15/16 01:15 95 13 100 118/44 10/15/16 01:03 37.0 95 18 114/43 99 9.0 10/15/16 01:00 98 12 119/50 100 119/45 10/15/16 01:00 100 10/15/16 00:49 36.6 96 18 101/43 99 3.0 10/15/16 00:45 96 11 100 110/40 10/15/16 00:45 100 10/15/16 00:30 100 10/15/16 00:30 98 13 98/39 100 89/36 10/15/16 00:15 100 10/15/16 00:15 95 13 100 95/38 10/15/16 00:00 100 10/15/16 00:00 95 16 98/39 100 96/38 10/15/16 00:00 Nasal Cannula 3.0 10/15/16 00:00 110/49 106/ 10/14/16 23:45 100 10/14/16 23:45 94 12 100 100/39 10/14/16 23:30 93 13 106/42 100 101/38 10/14/16 23:30 100 10/14/16 23:15 92 12 100 104/39 10/14/16 23:15 100 10/14/16 23:00 89 13 112/47 100 112/38 10/14/16 23:00 100 10/14/16 22:45 100 10/14/16 22:45 91 13 100 114/39 10/14/16 22:30 100 10/14/16 22:30 98 10 115/50 100 118/41 17 22:15 100 10/14/16 22:15 92 13 100 119/42 10/14/16 22:00 95 14 119/53 100 119/43 10/14/16 21:45 95 24 100 104/40 10/14/17 21:30 95 12 121/50 100 119/43 15/17 21:15 93 11 100 124/44 10/14/16 21:00 95 12 127/50 100 130/46 15/17 20:45 92 14 100 112/42 15/17 20:30 93 13 97/43 100 93/32 15/17 20:15 87 6 100 115/39 15/17 20:00 37.0 87 20 110/49 100 Nasal Cannula 3.0 10/14/16 20:00 88 9 110/49 100 106/37 5/15/17 20:00 Nasal Cannula 3.0 15/17 19:45 92 13 100 114/41 15/17 19:30 92 14 128/56 100 117/42 15/17 19:15 99 12 135/61 100 128/48 15/17 19:05 95 20 128/56 100 15/17 19:00 95 10 137/59 100 130/48 15/17 18:50 95 12 100 131/47 15/17 18:45 93 15 135/55 100 131/48 15/17 18:40 94 14 100 123/46 15/17 18:30 91 16 114/50 100 108/39 15/17 18:29 36.3 90 16 102/37 99 15/17 18:20 90 14 100 86/35 15/17 18:17 36.7 88 20 83/34 99 3.0 17 18:15 90 14 88/54 100 84/35 15/17 18:10 89 14 100 78/36 10/14/17 18:06 86 13 81/45 100 86/25 10/14/17 18:00 91 14 108/45 100 85/31 15/17 17:50 92 23 100 123/42 15/17 17:45 92 14 138/54 100 125/42 15/17 17:40 93 18 100 15/17 17:34 94 13 127/68 100 15/17 17:33 94 133/55 100 1517 17:30 36.9 90 90 127/69 99 Nasal Cannula 3.0 10/14/16 17:30 Nasal Cannula 3.0 15/17 17:20 36.2 90 17 133/62 100 Nasal Cannula 4 15/17 17:10 94 20 131/87 100 Nasal Cannula 4 17 17:00 36.1 101 27 122/64 100 Mask 10 10/14/17 16:00 Nasal Cannula 2.0 15/17 15:45 93 16 138/58 100 15/17 15:45 36.7 78 20 135/78 98 2.0 15/17 15:30 90 13 131/58 100 15/17 15:16 95 15 111/63 100 15/17 15:15 95 16 100 15/17 15:12 36.7 92 20 128/53 100 15/17 15:00 93 18 128/53 100 15/17 14:52 36.6 97 16 134/63 96 15/17 14:45 95 14 134/63 100 15/17 14:45 95 10 134/63 100 15/17 14:35 95 16 100 15/17 14:32 36.4 95 20 127/91 94 15/17 14:30 94 16 127/51 100 15/17 14:30 94 16 127/51 100 15/17 14:20 100 14 100 15/17 14:15 95 6 126/52 100 15/17 14:15 95 16 126/52 100 15/17 14:05 95 16 100 15/17 14:00 99 14 124/102 100 15/17 14:00 99 14 124/102 100 15/17 13:50 102 14 100 15/17 13:45 98 13 100/41 100 15/17 13:45 98 13 100/41 100 1517 13:41 36.7 96 16 110/44 99 2.0 15/17 13:40 98 10 110/44 100 15/17 13:40 98 14 110/44 100 15/17 13:35 98 13 100 15/17 13:30 92 19 101/45 99 15/17 13:30 92 19 101/45 99 15/17 13:20 99 12 116/45 92 15/17 13:20 99 12 116/45 92 15/17 13:15 102 13 95 15/17 13:10 100 10 104/44 93 15/17 13:10 100 10 104/44 93 15/17 13:10 36.7 102 20 104/44 94 2.0 15/17 13:05 98 12 95 15/17 13:00 100 10 108/56 96 15/17 13:00 100 10 108/56 96 15/17 12:55 36.5 100 20 90/54 95 5/15/17 12:50 103 19 90/54 94 10/14/16 12:50 103 19 90/54 94 10/14/16 12:45 99 9 100 10/14/16 12:41 97 4 104/38 100 10/14/16 12:41 97 14 104/38 100 10/14/16 12:35 99 16 96 10/14/16 12:20 36.4 98 18 102/43 95 Nasal Cannula 2.0 10/14/16 12:20 Nasal Cannula 2.0 10/14/16 11:19 102 18 114/52 97 Nasal Cannula 2.0 10/14/16 11:00 103 18 114/52 94 Nasal Cannula 2.0 10/14/16 11:00 103 18 114/52 94 10/14/16 10:56 97 Room Air 10/14/16 10:45 112 15 96 Nasal Cannula 2.0 10/14/16 10:45 112 15 96 10/14/16 10:30 101 20 101/44 97 Nasal Cannula 2.0 10/14/16 10:30 101 20 101/44 97 10/14/16 10:20 108 10/14/16 10:19 107 16 98/46 10/14/16 10:19 96 24 98/46 97 Nasal Cannula 2.0 10/14/16 10:15 111 26 10/14/16 10:00 Room Air Physical Exam General Appearance: no apparent distress Eyes: PERRL ENT: hearing grossly normal Neck: supple Respiratory/Chest: lungs clear, no respiratory distress, no accessory muscle use Cardiovascular: regular rate, rhythm, no JVD, + systolic murmur Abdomen: normal bowel sounds, non tender, soft, no organomegaly Neurologic/Psych: alert, oriented x 3 Skin: + jaundice Laboratory Results Last 24 Hours Test 10/14/16 10:17 10/14/16 11:00 10/14/16 16:00 10/14/16 17:49 Bedside Hemoglobin 5.8 g/dl Bedside Hematocrit 17 % Bedside Sodium 127 mEq/L Bedside Potassium 5.1 mEq/L Bedside Chloride 94 mEq/L Bedside Total CO2 18 mEq/l Anion Gap 21.0 mmol/L 12.0 mmol/L 11.0 mmol/L Bedside Blood Urea Nitrogen 49 mg/dl Bedside Creatinine 1.1 mg/dl Bedside Glucose (other) 108 mg/dl Bedside Ionized Calcium ([place]) 1.03 mmol/l White Blood Count 15.78 K/uL Red Blood Count 1.56 M/uL Hemoglobin 5.4 g/dL 7.9 g/dL Hematocrit 16.6 % 23.1 % Mean Corpuscular Volume 106.4 fL Mean Corpuscular Hemoglobin 34.6 pg Mean Corpuscular Hemoglobin Concent 32.5 g/dl Platelet Count 237 K/uL Mean Platelet Volume 10.8 fL Neutrophils (%) (Auto) 76.9 % Lymphocytes (%) (Auto) 12.1 % Monocytes (%) (Auto) 9.7 % Eosinophils (%) (Auto) 0.0 % Basophils (%) (Auto) 0.3 % Neutrophils # (Auto) 12.13 K/uL Lymphocytes # (Auto) 1.91 K/uL Monocytes # (Auto) 1.53 K/uL Eosinophils # (Auto) 0.00 K/uL Basophils # (Auto) 0.05 K/uL RDW Standard Deviation 69.0 fL RDW Coefficient of Variation 18.5 % Immature Granulocyte % (Auto) 1.0 % Immature Granulocyte # (Auto) 0.16 K/uL Acanthocytes 1+ Prothrombin Time 22.1 SECONDS Prothromb Time International Ratio 2.0 Activated Partial Thromboplast Time 31.1 SECONDS Partial Thromboplastin Ratio 1.2 Sodium Level 130 mmol/L 131 mmol/L Potassium Level 4.7 mmol/L 4.7 mmol/L Chloride Level 95 mmol/L 97 mmol/L Carbon Dioxide Level 23 mmol/L 23 mmol/L Blood Urea Nitrogen 50 mg/dl 52 mg/dl Creatinine 1.20 mg/dl 1.10 mg/dl Est Creatinine Clear Calc Drug Dose 33.3 ml/min 36.3 ml/min Estimated GFR () 51.6 57.3 Estimated GFR (Non- 44.5 49.4 BUN/Creatinine Ratio 41.4 47.4 Random Glucose 134 mg/dl 158 mg/dl Calcium Level 10.0 mg/dl 9.3 mg/dl Phosphorus Level 4.5 mg/dl Magnesium Level 2.1 mg/dl Total Bilirubin 11.8 mg/dl Direct Bilirubin 4.7 mg/dl Aspartate Amino Transf (AST/SGOT) 40 U/L Alanine Aminotransferase (ALT/SGPT) 35 U/L Alkaline Phosphatase 76 U/L Ammonia 23.0 umol/L Total Protein 5.9 gm/dl Albumin 2.9 gm/dl Lipase 507 U/L Urine Color DK YELLOW Urine Appearance CLOUDY Urine pH 5.0 Urine Specific [place] 1.019 Urine Protein NEG Urine Glucose (UA) NEG Urine Ketones NEG Urine Occult Blood 2+ Urine Nitrite NEG Urine Bilirubin 1+ Urine Urobilinogen NEG Urine Leukocyte Esterase NEG Urine WBC (Auto) 1-5 /hpf Urine RBC (Auto) 10-30 /hpf Urine Hyaline Casts (Auto) 1-5 /lpf Urine Epithelial Cells (Auto) 10-20 /lpf Urine Bacteria (Auto) NEG Urine Pathogenic Casts 0-3 GRANULAR CASTS /lpf Test 10/14/16 23:05 10/15/16 06:00 10/15/16 06:02 Hemoglobin 7.0 g/dL 8.2 g/dL Hematocrit 19.4 % 24.2 % White Blood Count 16.65 K/uL Red Blood Count 2.60 M/uL Mean Corpuscular Volume 93.1 fL Mean Corpuscular Hemoglobin 31.5 pg Mean Corpuscular Hemoglobin Concent 33.9 g/dl RDW Standard Deviation 66.6 fL RDW Coefficient of Variation 20.9 % Platelet Count 152 K/uL Mean Platelet Volume 10.9 fL Prothrombin Time 18.7 SECONDS Prothromb Time International Ratio 1.7 Sodium Level 133 mmol/L Potassium Level 4.5 mmol/L Chloride Level 100 mmol/L Carbon Dioxide Level 24 mmol/L Anion Gap 9.0 mmol/L Blood Urea Nitrogen 52 mg/dl Creatinine 1.00 mg/dl Est Creatinine Clear Calc Drug Dose 58.7 ml/min Estimated GFR () 64.3 Estimated GFR (Non- 55.5 BUN/Creatinine Ratio 51.8 Random Glucose 121 mg/dl Calcium Level 9.3 mg/dl Phosphorus Level 4.3 mg/dl Magnesium Level 2.0 mg/dl Total Bilirubin 11.1 mg/dl Aspartate Amino Transf (AST/SGOT) 38 U/L Alanine Aminotransferase (ALT/SGPT) 37 U/L Alkaline Phosphatase 76 U/L Ammonia 61.0 umol/L Total Protein 6.0 gm/dl Albumin 3.1 gm/dl Globulin 2.9 gm/dl Albumin/Globulin Ratio 1.1 Lipase 1008 U/L Bedside Glucose 129 mg/dl Assessment and Plan Ms. Landry is a 76 year old female with acute GI hemorrhage with suspected esophageal variceal bleed - EGD with banding yesterday without any evidence of ongoing acute bleeding. Pt HGB is being watched and she is being transfused PRN Monitor for S/S of GI blood loss Trend H&H Transfuse as needed - HGB goal of 7 Octreotide gtt x 3 days Protonix gtt x 3 days Rocephin x 7 days for GI prophylaxis Lactulose 30 gm BID Xifaxan 550 mg BID MELD 25 Call with any questions. ATTESTATION: I have performed a history and physical examination of this patient and reviewed the electronic record. Specifically, on physical examination there is no asterixis. I have discussed the case with FABI Ho. The above note reflects my findings, conclusions, and recommendations. Brennon Mazariegos MD
--- NOTE | 2016-10-15 09:21 | Clinical Documentation Query ---
EDUIN Scott : CLINICAL DOCUMENTATION QUERY Patient is a 76 year old female admitted with melena and hematemesis x 3 days. Initial hemoglobin and hematocrit were 5.4 g/dl and 16.6%. A third unit of PRBC's is transfusing this a.m. Repeat H&H this a.m. was 8.2 g/dl and 24.2%. Documentation includes "PROFOUND ANEMIA DUE TO UPPER GI BLEED, LIKELY VARICEAL". The only element lacking in this documentation, although implicit, is the acuity of the associated bleed. As appropriate, consider documentation as suggested below as this impacts DRG assignment and measures of severity of illness and risk of mortality. Thank you. In your clinical opinion is this patient being managed for: (+ ) Acute blood loss anemia secondary to UGIB, likely variceal ( ) Other explanation of clinical findings (Please Explain) ( ) Unable to determine (Please Define) ( ) Need to Discuss ( ) Not Agree The medical record reflects the following clinical findings, treatment, and risk factors. 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 Terms such as "probable", "suspected", "likely", "questionable", "possible", or "still to be ruled out" are acceptable. IF IN AGREEMENT, YOU MUST DOCUMENT ABOVE DIAGNOSTIC STATEMENT IN DAILY PROGRESS NOTES AND DISCHARGE SUMMARY. This document is not part of the patient's record. Thank You, Felice Ross, ARYA [phone]
--- NOTE | 2016-10-15 09:23 | Clinical Documentation Query ---
Ms. ELIOTONIEL : CLINICAL DOCUMENTATION QUERY Patient is a 76 year old female admitted with melena a.m. Repeat H&H this a.m. was 8.2 g/dl and 24.2%. Documentation includes "PROFOUND and hematemesis x 3 days. Initial hemoglobin and hematocrit were 5.4 g/dl and 16.6%. A third unit of PRBC's is transfusing this ANEMIA DUE TO UPPER GI BLEED, LIKELY VARICEAL". The only element lacking in this documentation, although implicit, is the acuity of the associated bleed. As appropriate, consider documentation as suggested below as this impacts DRG assignment and measures of severity of illness and risk of mortality. Thank you. In your clinical opinion is this patient being managed for: (X) Acute blood loss anemia secondary to UGIB, likely variceal ( ) Other explanation of clinical findings (Please Explain) ( ) Unable to determine (Please Define) ( ) Need to Discuss ( ) Not Agree The medical record reflects the following clinical findings, treatment, and risk factors. 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 Terms such as "probable", "suspected", "likely", "questionable", "possible", or "still to be ruled out" are acceptable. IF IN AGREEMENT, YOU MUST DOCUMENT ABOVE DIAGNOSTIC STATEMENT IN DAILY PROGRESS NOTES AND DISCHARGE SUMMARY. This document is not part of the patient's record. Thank You, Felice Ross, RN [phone]
[2016-10-15] MEDS ORDERED: FUROSEMIDE 40 MG/4 ML VIAL IV SCH (09:45)
--- NOTE | 2016-10-15 10:31 | Anesthesiology Progress Note ---
Anesthesia Post Op Note Date & Time October 15, 2016 at 10:31 Vital Signs Pain Intensity: 0 Vital Signs Past 12 Hours Date Time Temp Pulse Resp B/P Pulse Ox O2 Delivery O2 Flow Rate FiO2 10/15/16 06:00 96 17 129/65 100 136/49 10/15/16 05:45 92 13 100 144/50 10/15/16 05:30 100 29 132/60 100 135/47 10/15/16 05:15 100 14 100 117/45 10/15/16 05:00 98 13 135/60 100 127/47 10/15/16 04:45 95 14 100 130/49 10/15/16 04:30 98 13 133/61 100 130/49 10/15/16 04:15 96 17 100 146/39 10/15/16 04:01 108 22 129/52 100 128/48 10/15/16 04:00 97 15 100 117/38 10/15/16 04:00 100 Nasal Cannula 3.0 10/15/16 03:45 95 17 100 119/44 10/15/16 03:30 92 12 120/58 100 119/43 10/15/16 03:15 92 12 100 117/43 10/15/16 03:00 93 14 122/54 100 120/44 10/15/16 02:45 93 15 100 112/42 10/15/16 02:30 93 13 123/52 100 113/42 10/15/16 02:15 95 13 100 110/41 10/15/16 02:00 37.0 94 15 111/48 100 3.0 10/15/16 02:00 94 15 111/48 100 107/41 10/15/16 01:30 36.9 90 16 116/51 100 3.0 10/15/16 01:15 100 10/15/16 01:15 95 13 100 118/44 10/15/16 01:03 37.0 95 18 114/43 99 9.0 10/15/16 01:00 98 12 119/50 100 119/45 10/15/16 01:00 100 10/15/16 00:49 36.6 96 18 101/43 99 3.0 10/15/16 00:45 96 11 100 110/40 10/15/16 00:45 100 10/15/16 00:30 100 10/15/16 00:30 98 13 98/39 100 89/36 10/15/16 00:15 100 10/15/16 00:15 95 13 100 95/38 10/15/16 00:00 100 10/15/16 00:00 95 16 98/39 100 96/38 10/15/16 00:00 Nasal Cannula 3.0 10/15/16 00:00 110/49 106/ 10/14/16 23:45 100 10/14/16 23:45 94 12 100 100/39 10/14/16 23:30 93 13 106/42 100 101/38 10/14/16 23:30 100 10/14/16 23:15 92 12 100 104/39 10/14/16 23:15 100 10/14/16 23:00 89 13 112/47 100 112/38 10/14/16 23:00 100 10/14/16 22:45 100 10/14/16 22:45 91 13 100 114/39 Notes Mental Status: alert / awake / arousable, participated in evaluation Pt Amnestic to Procedure: Yes Nausea / Vomiting: adequately controlled Pain: adequately controlled Airway Patency, RR, SpO2: stable & adequate BP & HR: stable & adequate Hydration State: stable & adequate Anesthetic Complications: no major complications apparent
[2016-10-15] MEDS: LACTULOSE SYRUP 30 GM/45 ML UDP PO SCH ×2 (11:29→21:05)
[2016-10-15] MEDS: RIFAXIMIN TAB 550 MG TAB PO SCH ×2 (11:29→21:04)
--- NOTE | 2016-10-15 11:46 | CRITICAL CARE PROGRESS NOTE ---
DATE: 10/15/2016 GENERAL INFORMATION: The patient's care was discussed on multidisciplinary rounds today. Last night, the she received 1 unit of packed red blood cells for a hemoglobin of 7. Her total number of infused units is now 3. She has also received 1 unit of fresh frozen plasma. She was complaining of some nausea this morning, but has not vomited. She had 1 bowel movement since midnight. She is status post banding of esophageal varices yesterday. She denies shortness of breath and reports abdominal pain, although in talking to her more about it, it is a pain that she has frequently in the outpatient setting. She remains on Protonix, octreotide and normal saline infusions. PHYSICAL EXAMINATION: VITAL SIGNS: Maximum temperature is 37, heart rate 95-100, respiratory rate 17-29, blood pressure 111-136/49-60, and oxygen saturation 99% on 2 liters nasal cannula. 24-hour fluid balance positive 2.1 liters. GENERAL: She is awake, alert and sitting in a chair. NEUROLOGIC: She is talkative and follows commands. She is a bit tangential in our conversation. LUNGS: Clear to auscultation bilaterally. HEART: Regular rate and rhythm with a 2/6 murmur at the right sternal border. ABDOMEN: Limited due to her seated position, but is soft with some very mild periumbilical pain. No rebound or guarding. Active bowel sounds. EXTREMITIES: Warm with 2+ pretibial edema. LABORATORY DATA: White blood cell count 16.65, hemoglobin 8.2, hematocrit 24.2, and platelets 152. PT 18.7 and INR 1.7. Sodium 133, potassium 4.5, chloride 100, CO2 of 24, BUN 52, creatinine 1, and blood sugar 121. Total bilirubin 11.1. AST 38 and ALT 37. Ammonia 61. Total protein 6, albumin 3.1, and lipase 1008. MEDICATIONS: Ceftriaxone day #2, Lactulose 30 grams b.i.d., octreotide infusion, Zofran p.r.n., Protonix infusion, Xifaxan, and normal saline at 50 mL per hour. IMPRESSIONS: 1. Acute gastrointestinal bleed, status post upper endoscopy yesterday with two columns of grade 2 esophageal varices at the gastroesophageal junction. No stigmata of recent bleeding. Banding x2. 2. Acute anemia of blood loss, status post 3 units packed red blood cells. 3. Alcoholic cirrhosis with some decompensation. Bilirubin is starting to decrease a bit at this point. She has been off her diuretics for the past several days. 4. Sinus tachycardia, resolved. 5. History of transcatheter aortic valve replacement. 6. 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 7. Hiatal hernia. 8. History of tobacco use. 9. Nausea and vomiting, improved. 10. Elevated lipase. 11. Elevated ammonia level, lactulose has been started. PLAN: 1. Continue serial blood counts with a goal hemoglobin of 7. 2. Continue Protonix and octreotide infusions. 3. Advance diet to sips and chips with medications only as per gastroenterology recommendations. 4. The lactulose has been resumed today, follow the ammonia level. 5. Decrease IV fluids to 50 mL per hour and give Lasix 40 mg IV x1. 6. Discontinue arterial line. 7. Wound care consultation for breakdown on her buttocks. 8. Consult physical therapy and occupational therapy. 9. Out of bed. 10. Sequential compressions stockings for deep vein thrombosis prophylaxis. 11. Continue Rocephin for 7 days. 12. Follow lipase. 13. Keep triple lumen catheter for now. MTDD
[2016-10-15] MEDS: CEFTRIAXONE SOD INJ 1 GM in DEXTROSE 5% ADD-VANTAGE 50ML 50 ML IV SCH (13:00)
--- NOTE | 2016-10-15 13:10 | Progress Note ---
Internal Med Progress Note Date of Service: October 15, 2016. Provider Documentation: SUBJECTIVE: Patient is feeling better. Sitting in chair comfortably. No more hematemesis, melena. No abd pain, nausea, vomiting, fever, chills On Sips/chips OBJECTIVE: Vital Signs-as noted below Exam: General-AAOX3, no distress; Frail Eyes-Icterus + Neck-Supple Lungs-AEBE, no wheezing Heart- Murmur + harsh Abdomen-Soft, Distended +, BS present Extremities-B/L Edema Left > Right Neuro-No focal deficits Skin- Yellowish discoloration of skin + Lab data as noted below. ASSESSMENT & PLAN: ACUTE BLOOD LOSS ANEMIA DUE TO UPPER GI BLEED : Patient presented with hematemesis and black stools x 5 days; in the ER, found to have hgb 5.8, BP borderline, mild tachycardia - S/P Endoscopy on 10/14/16- Non bleeding Grade II esophageal varices S/P 2 Bands in lower third of esophagus, Hiatal Hernia, Mild portal gastroenteropathy - S/P 3 units PRBC transfusion- Hb > 8 today (Goal : 7) - IV Protonix drip x 3 days (Day2), IV Octreotide drip - NPO with sips/chips. Discontinue IVF as hx of S/P IVF - IV Rocephin x 7 days for SBP prophylaxis - GI/Air Tucker on board. Case discussed with Dr Rod ALCOHOLIC CIRRHOSIS - LFTs and INR near baseline from prior admission - Held diuretics. Continue with Lactulose, and Xifaxan. . Received a dose of IV lasix today as post IVF with hx of /On diuretics at home - patient continues to abstain from alcohol DVT PROPHYLAXIS - SCDs due to bleeding, elevated INR CODE STATUS - Patient is a full code as per my discussion with her. DISPO - Discussed with over phone (in [place]) ---> concerned about her going home as lives by herself. Will need [facility] - PT/OT prior to discharged Discussed with bridge mechanic Vital Signs: Date Time Temp Pulse Resp B/P Pulse Ox O2 Delivery O2 Flow Rate FiO2 10/15/16 10:00 95 21 139/92 98 Room Air 10/15/16 08:00 99 Room Air 10/15/16 06:00 96 17 129/65 100 136/49 5/16/17 05:45 92 13 100 144/50 5/16/17 05:30 100 29 132/60 100 135/47 5/16/17 05:15 100 14 100 117/45 5/16/17 05:00 98 13 135/60 100 127/47 5/16/17 04:45 95 14 100 130/49 5/16/17 04:30 98 13 133/61 100 130/49 516/17 04:15 96 17 100 146/39 516/17 04:01 108 22 129/52 100 128/48 516/17 04:00 97 15 100 117/38 5/16/17 04:00 100 Nasal Cannula 3.0 16/17 03:45 95 17 100 119/44 516/17 03:30 92 12 120/58 100 119/43 5/16/17 03:15 92 12 100 117/43 5/16/17 03:00 93 14 122/54 100 120/44 5/16/17 02:45 93 15 100 112/42 516/17 02:30 93 13 123/52 100 113/42 5/16/17 02:15 95 13 100 110/41 5/16/17 02:00 37.0 94 15 111/48 100 3.0 16/17 02:00 94 15 111/48 100 107/41 5/16/17 01:30 36.9 90 16 116/51 100 3.0 16/17 01:15 100 16/17 01:15 95 13 100 118/44 5/16/17 01:03 37.0 95 18 114/43 99 9.0 16/17 01:00 98 12 119/50 100 119/45 5/16/17 01:00 100 16/17 00:49 36.6 96 18 101/43 99 3.0 16/17 00:45 96 11 100 110/40 516/17 00:45 100 16/17 00:30 100 16/17 00:30 98 13 98/39 100 89/36 516/17 00:15 100 16/17 00:15 95 13 100 95/38 5/16/17 00:00 100 16/17 00:00 95 16 98/39 100 96/38 516/17 00:00 Nasal Cannula 3.0 5/16/17 00:00 110/49 106/ 5/15/17 23:45 100 15/17 23:45 94 12 100 100/39 5/15/17 23:30 93 13 106/42 100 101/38 515/17 23:30 100 15/17 23:15 92 12 100 104/39 15/17 23:15 100 15/17 23:00 89 13 112/47 100 112/38 515/17 23:00 100 15/17 22:45 100 15/17 22:45 91 13 100 114/39 15/17 22:30 100 15/17 22:30 98 10 115/50 100 118/41 15/17 22:15 100 15/17 22:15 92 13 100 119/42 15/17 22:00 95 14 119/53 100 119/43 15/17 21:45 95 24 100 104/40 15/17 21:30 95 12 121/50 100 119/43 15/17 21:15 93 11 100 124/44 15/17 21:00 95 12 127/50 100 130/46 15/17 20:45 92 14 100 112/42 15/17 20:30 93 13 97/43 100 93/32 15/17 20:15 87 6 100 115/39 15/17 20:00 37.0 87 20 110/49 100 Nasal Cannula 3.0 10/14/17 20:00 88 9 110/49 100 106/37 515/17 20:00 Nasal Cannula 3.0 515/17 19:45 92 13 100 114/41 5/15/17 19:30 92 14 128/56 100 117/42 5/15/17 19:15 99 12 135/61 100 128/48 515/17 19:05 95 20 128/56 100 15/17 19:00 95 10 137/59 100 130/48 5/15/17 18:50 95 12 100 131/47 515/17 18:45 93 15 135/55 100 131/48 515/17 18:40 94 14 100 123/46 515/17 18:30 91 16 114/50 100 108/39 10/14/16 18:29 36.3 90 16 102/37 99 17 18:20 90 14 100 86/35 1517 18:17 36.7 88 20 83/34 99 3.0 1517 18:15 90 14 88/54 100 84/35 15/17 18:10 89 14 100 78/36 10/14/16 18:06 86 13 81/45 100 86/25 10/14/16 18:00 91 14 108/45 100 85/31 15/17 17:50 92 23 100 123/42 10/14/17 17:45 92 14 138/54 100 125/42 10/14/16 17:40 93 18 100 10/14/16 17:34 94 13 127/68 100 1517 17:33 94 133/55 100 10/14/16 17:30 36.9 90 90 127/69 99 Nasal Cannula 3.0 10/14/16 17:30 Nasal Cannula 3.0 10/14/16 17:20 36.2 90 17 133/62 100 Nasal Cannula 4 10/14/16 17:10 94 20 131/87 100 Nasal Cannula 4 10/14/16 17:00 36.1 101 27 122/64 100 Mask 10 10/14/16 16:00 Nasal Cannula 2.0 10/14/16 15:45 93 16 138/58 100 10/14/16 15:45 36.7 78 20 135/78 98 2.0 10/14/16 15:30 90 13 131/58 100 17 15:16 95 15 111/63 100 1517 15:15 95 16 100 10/14/16 15:12 36.7 92 20 128/53 100 1517 15:00 93 18 128/53 100 10/14/16 14:52 36.6 97 16 134/63 96 15 14:45 95 14 134/63 100 15/17 14:45 95 10 134/63 100 10/14/16 14:35 95 16 100 15/17 14:32 36.4 95 20 127/91 94 1517 14:30 94 16 127/51 100 1517 14:30 94 16 127/51 100 10/14/16 14:20 100 14 100 10/14/16 14:15 95 6 126/52 100 10/14/16 14:15 95 16 126/52 100 10/14/16 14:05 95 16 100 10/14/16 14:00 99 14 124/102 100 10/14/16 14:00 99 14 124/102 100 10/14/16 13:50 102 14 100 10/14/16 13:45 98 13 100/41 100 10/14/16 13:45 98 13 100/41 100 10/14/16 13:41 36.7 96 16 110/44 99 2.0 10/14/16 13:40 98 10 110/44 100 10/14/16 13:40 98 14 110/44 100 10/14/16 13:35 98 13 100 10/14/16 13:30 92 19 101/45 99 10/14/16 13:30 92 19 101/45 99 10/14/16 13:20 99 12 116/45 92 10/14/16 13:20 99 12 116/45 92 10/14/16 13:15 102 13 95 Lab Results: Results Past 24 Hours Test 10/14/16 16:00 10/14/16 17:49 10/14/16 23:05 10/15/16 06:00 Range/Units Urine Color DK YELLOW Urine Appearance CLOUDY CLEAR Urine pH 5.0 4.5-7.5 Urine Specific [place] 1.019 1.000-1.030 Urine Protein NEG NEG Urine Glucose (UA) NEG NEG Urine Ketones NEG NEG Urine Occult Blood 2+ NEG Urine Nitrite NEG NEG Urine Bilirubin 1+ NEG Urine Urobilinogen NEG NEG Urine Leukocyte Esterase NEG NEG Urine WBC (Auto) 1-5 0-5 /hpf Urine RBC (Auto) 10-30 0-4 /hpf Urine Hyaline Casts (Auto) 1-5 0-5 /lpf Urine Epithelial Cells (Auto) 10-20 0-5 /lpf Urine Bacteria (Auto) NEG NEG Urine Pathogenic Casts 0-3 GRANULAR CASTS 0 /lpf Hemoglobin 7.9 7.0 8.2 12.0-16.0 g/dL Hematocrit 23.1 19.4 24.2 37-47 % Sodium Level 131 133 136-145 mmol/L Potassium Level 4.7 4.5 3.5-5.1 mmol/L Chloride Level 97 100 98-107 mmol/L Carbon Dioxide Level 23 24 21-32 mmol/L Anion Gap 11.0 9.0 3-11 mmol/L Blood Urea Nitrogen 52 52 7-18 mg/dl Creatinine 1.10 1.00 0.60-1.20 mg/dl Est Creatinine Clear Calc Drug Dose 36.3 58.7 ml/min Estimated GFR () 57.3 64.3 Estimated GFR (Non- 49.4 55.5 BUN/Creatinine Ratio 47.4 51.8 10-20 Random Glucose 158 121 70-99 mg/dl Calcium Level 9.3 9.3 8.5-10.1 mg/dl White Blood Count 16.65 4.8-10.8 K/uL Red Blood Count 2.60 4.2-5.4 M/uL Mean Corpuscular Volume 93.1 80-100 fL Mean Corpuscular Hemoglobin 31.5 25-34 pg Mean Corpuscular Hemoglobin Concent 33.9 32-36 g/dl RDW Standard Deviation 66.6 36.4-46.3 fL RDW Coefficient of Variation 20.9 11.5-14.5 % Platelet Count 152 130-400 K/uL Mean Platelet Volume 10.9 7.4-10.4 fL Prothrombin Time 18.7 9.0-12.0 SECONDS Prothromb Time International Ratio 1.7 0.9-1.1 Phosphorus Level 4.3 2.5-4.9 mg/dl Magnesium Level 2.0 1.8-2.4 mg/dl Total Bilirubin 11.1 0.2-1 mg/dl Aspartate Amino Transf (AST/SGOT) 38 15-37 U/L Alanine Aminotransferase (ALT/SGPT) 37 12-78 U/L Alkaline Phosphatase 76 45-117 U/L Ammonia 61.0 11-32 umol/L Total Protein 6.0 6.4-8.2 gm/dl Albumin 3.1 3.4-5.0 gm/dl Globulin 2.9 2.5-4.0 gm/dl Albumin/Globulin Ratio 1.1 0.9-2 Lipase 1008 73-393 U/L Test 10/15/16 06:02 10/15/16 10:54 Range/Units Bedside Glucose 129 70-90 mg/dl Hemoglobin 8.5 12.0-16.0 g/dL Hematocrit 24.0 37-47 % Microbiology Results 10/14/16 MRSA DNA Surveillance Screen - Final, Complete Specimen Negative for MRSA by DNA Probe
[2016-10-15 17:47] LABS: HEMATOCRIT 24.5 % (37-47)
[2016-10-15 23:14] LABS: HEMATOCRIT 22.9 % (37-47)
[2016-10-16] VITALS (9 sets, daily range): BP systolic 105–129; BP diastolic 42–56; PULSE 77–94; TEMP 36.3–37.3; O2SAT 94–98
[2016-10-16] MEDS: PANTOprazole INJ 40 MG in DEXTROSE 5% 100ML IV SCH ×5 (02:31→22:05)
[2016-10-16] MEDS: OCTREOTIDE ACETATE INJ 500 MCG in NSS 100ML IV SCH ×2 (04:17→14:33)
[2016-10-16 05:40] LABS: HEMATOCRIT 22.7 % (37-47); MEAN CELL VOLUME 96.6 fL (80-100); MEAN CORPUSCULAR HEMOGLOBIN 32.8 pg (25-34); MEAN CORPUSCULAR HGB CONC 33.9 g/dl (32-36); MEAN PLATELET VOLUME 10.6 fL (7.4-10.4); PLATELET COUNT 145 K/uL (130-400); RED BLOOD COUNT 2.35 M/uL (4.2-5.4); WHITE BLOOD COUNT 14.48 K/uL (4.8-10.8)
[2016-10-16 06:19] LABS: BUN/CREATININE RATIO 37.4 (10-20); CALCIUM 8.5 mg/dl (8.5-10.1); CREATININE 1.2 mg/dl (0.60-1.20)
--- NOTE | 2016-10-16 07:35 | Gastroenterology Progress Note ---
Progress Note Date of Service: October 16, 2016 Subjective Pt was seen and examined this morning. She tells me she is doing well and feels 100% improved. Pt appeared confused yesterday on morning exam and was restarted on lactulose and Xifaxan, during afternoon rounds was answering questions more appropriately and appeared to be less confused. She is alert and oriented x 3. She is not having any nausea, vomiting, black/bloody stools. Review of Systems Constitutional: No chills, No fever Respiratory: No cough, No shortness of breath Cardiac: No chest pain, No edema Abdomen: No GI bleeding, No constipation, No diarrhea, No nausea, No pain, No vomiting Medications Current Inpatient Medications Medications (Trade) Dose Ordered Sig/Hernandez Route Start Time Stop Time Status Last Admin Dose Admin Pantoprazole Sodium 40 mg/ Dextrose 100 ml @ 20 mls/hr Q5H IV 10/14/16 10:45 11/13/16 10:44 10/16/16 02:31 20 MLS/HR Octreotide Acetate 500 mcg/ Sodium Chloride 105 ml @ 10 mls/hr [id number] IV 10/14/16 10:30 11/13/16 10:29 10/16/16 04:17 10 MLS/HR Ceftriaxone Sodium/Dextrose (Rocephin Inj/ Dextrose Add-[place] 50ML) 50 ml @ 100 mls/hr Q24H IV 10/14/16 13:00 10/24/16 12:59 10/15/16 13:00 100 MLS/HR Ondansetron HCl (Zofran Inj) 4 mg Q6H PRN IV 10/14/16 11:15 11/13/16 11:14 10/14/16 12:22 4 MG Heparin Sodium (Porcine) (Heparin 10 Unit/ ml 5 ml Flush) 5 ml PRN PRN FLUSH 10/15/16 01:45 11/14/16 01:44 Lactulose (Chronulac Syrup) 30 gm BID PO 10/15/16 10:00 11/14/16 09:59 10/15/16 21:05 30 GM Rifaximin (Xifaxan Tab) 550 mg BID PO 10/15/16 10:00 11/14/16 09:59 10/15/16 21:04 550 MG Objective Vital Signs Date Time Temp Pulse Resp B/P Pulse Ox O2 Delivery O2 Flow Rate FiO2 10/16/16 04:00 Room Air 10/16/16 03:58 37.3 94 16 112/51 94 Room Air 10/16/16 00:00 Room Air 10/15/16 23:33 36.8 89 17 131/55 95 Room Air 10/15/16 20:00 99 Room Air 10/15/16 19:19 36.8 93 16 111/51 99 Room Air 10/15/16 16:00 98 20 128/84 97 Room Air 10/15/16 16:00 99 Room Air 10/15/16 12:00 94 20 136/59 100 Room Air 10/15/16 12:00 100 Room Air 10/15/16 10:00 95 21 139/92 98 Room Air 10/15/16 08:00 99 Room Air Physical Exam General Appearance: no apparent distress Eyes: PERRL ENT: hearing grossly normal Neck: supple Respiratory/Chest: lungs clear, normal breath sounds, no respiratory distress, no accessory muscle use Cardiovascular: regular rate, rhythm, no JVD Abdomen: normal bowel sounds, non tender, no pulsatile mass, + distended (non tense ascites - pt does not want paracentesis) Neurologic/Psych: alert, normal mood/affect, oriented x 3 Skin: + jaundice Laboratory Results Last 24 Hours Test 10/15/16 10:54 10/15/16 17:36 10/15/16 23:00 10/16/16 05:32 Hemoglobin 8.5 g/dL 8.4 g/dL 7.6 g/dL 7.7 g/dL Hematocrit 24.0 % 24.5 % 22.9 % 22.7 % White Blood Count 14.48 K/uL Red Blood Count 2.35 M/uL Mean Corpuscular Volume 96.6 fL Mean Corpuscular Hemoglobin 32.8 pg Mean Corpuscular Hemoglobin Concent 33.9 g/dl RDW Standard Deviation 69.8 fL RDW Coefficient of Variation 21.8 % Platelet Count 145 K/uL Mean Platelet Volume 10.6 fL Sodium Level 135 mmol/L Potassium Level 4.0 mmol/L Chloride Level 104 mmol/L Carbon Dioxide Level 26 mmol/L Anion Gap 5.0 mmol/L Blood Urea Nitrogen 45 mg/dl Creatinine 1.20 mg/dl Est Creatinine Clear Calc Drug Dose 32.6 ml/min Estimated GFR () 51.6 Estimated GFR (Non- 44.5 BUN/Creatinine Ratio 37.4 Random Glucose 106 mg/dl Calcium Level 8.5 mg/dl Total Bilirubin 11.4 mg/dl Direct Bilirubin 4.7 mg/dl Aspartate Amino Transf (AST/SGOT) 36 U/L Alanine Aminotransferase (ALT/SGPT) 30 U/L Alkaline Phosphatase 70 U/L Ammonia 39.0 umol/L Total Protein 5.5 gm/dl Albumin 2.9 gm/dl Lipase 333 U/L Assessment and Plan Ms. Landry is a 76 year old female with acute GI hemorrhage with suspected esophageal variceal bleed - EGD with banding on Friday without any evidence of ongoing acute bleeding. Pt HGB is being watched and she is being transfused PRN Monitor for S/S of GI blood loss Trend H&H Transfuse as needed - HGB goal of 7 Octreotide gtt x 3 days Protonix gtt x 3 days Rocephin x 7 days for GI prophylaxis Lactulose 30 gm BID Xifaxan 550 mg BID Clear liquids today MELD 25 Call with any questions. ATTESTATION: I have performed a history and physical examination of this patient and reviewed the electronic record. Specifically, on physical examination she is oriented without asterixis. I have discussed the case with FABI Ho. The above note reflects my findings, conclusions, and recommendations. Brennon Mazariegos MD
[2016-10-16] MEDS: LACTULOSE SYRUP 30 GM/45 ML UDP PO SCH ×2 (08:11→19:58)
[2016-10-16] MEDS: RIFAXIMIN TAB 550 MG TAB PO SCH ×2 (08:12→19:59)
--- NOTE | 2016-10-16 10:20 | Progress Note ---
Internal Med Progress Note Date of Service: October 16, 2016. Provider Documentation: SUBJECTIVE: Patient is feeling better. No more hematemesis. Does have multiple , loose, black stools. No abd pain, nausea, vomiting, fever, chills On clear liquids- tolerating it well OBJECTIVE: Vital Signs-as noted below Exam: General-AAOX3, no distress; Frail Eyes-Icterus + Neck-Supple Lungs-AEBE, no wheezing Heart- Murmur + harsh Abdomen-Soft, Distended +, BS present Extremities-B/L Edema Left > Right Neuro-No focal deficits Skin- Yellowish discoloration of skin + Lab data as noted below. ASSESSMENT & PLAN: ACUTE BLOOD LOSS ANEMIA DUE TO UPPER GI BLEED : Patient presented with hematemesis and black stools x 5 days; in the ER, found to have hgb 5.8, BP borderline, mild tachycardia - S/P Endoscopy on 10/14/16- Non bleeding Grade II esophageal varices S/P 2 Bands in lower third of esophagus, Hiatal Hernia, Mild portal gastroenteropathy - S/P 3 units PRBC transfusion- Hb > 7.7 today (Goal : 7) - IV Protonix drip x 3 days (Day3), IV Octreotide drip (Day 3/3) - NPO with sips/chips--> Advanced to clear liquids today. Discontinued IVF as hx of S/P IVF--on 11/15/16 - IV Rocephin x Day 3/ 7 days for SBP prophylaxis - GI on board. ALCOHOLIC CIRRHOSIS (MELD 25) - LFTs and INR near baseline from prior admission - Held diuretics--OK to restart it . Continue with Lactulose (to hold if > 3 BMS /Day) , and Xifaxan. . Received a dose of IV lasix on 10/15/16 as post IVF with hx of /On diuretics at home - Patient continues to abstain from alcohol DVT PROPHYLAXIS - SCDs due to bleeding, elevated INR CODE STATUS - Patient is a full code as per my discussion with her. DISPO - Discussed with over phone (in [place]) ---> concerned about her going home as lives by herself. Patient adamant about going home and refusing to go to any NH. Has been a hoarder--> had evaluation done per SS note. - PT/OT ordered -Continue with tele monitoring Vital Signs: Date Time Temp Pulse Resp B/P Pulse Ox O2 Delivery O2 Flow Rate FiO2 10/16/16 06:55 36.9 81 18 105/51 97 Room Air 10/16/16 04:00 Room Air 10/16/16 03:58 37.3 94 16 112/51 94 Room Air 10/16/16 00:00 Room Air 10/15/16 23:33 36.8 89 17 131/55 95 Room Air 10/15/16 20:00 99 Room Air 10/15/16 19:19 36.8 93 16 111/51 99 Room Air 10/15/16 16:00 98 20 128/84 97 Room Air 10/15/16 16:00 99 Room Air 10/15/16 12:00 94 20 136/59 100 Room Air 10/15/16 12:00 100 Room Air Lab Results: Results Past 24 Hours Test 10/15/16 10:54 10/15/16 17:36 10/15/16 23:00 10/16/16 05:32 Range/Units Hemoglobin 8.5 8.4 7.6 7.7 12.0-16.0 g/dL Hematocrit 24.0 24.5 22.9 22.7 37-47 % White Blood Count 14.48 4.8-10.8 K/uL Red Blood Count 2.35 4.2-5.4 M/uL Mean Corpuscular Volume 96.6 80-100 fL Mean Corpuscular Hemoglobin 32.8 25-34 pg Mean Corpuscular Hemoglobin Concent 33.9 32-36 g/dl RDW Standard Deviation 69.8 36.4-46.3 fL RDW Coefficient of Variation 21.8 11.5-14.5 % Platelet Count 145 130-400 K/uL Mean Platelet Volume 10.6 7.4-10.4 fL Sodium Level 135 136-145 mmol/L Potassium Level 4.0 3.5-5.1 mmol/L Chloride Level 104 98-107 mmol/L Carbon Dioxide Level 26 21-32 mmol/L Anion Gap 5.0 3-11 mmol/L Blood Urea Nitrogen 45 7-18 mg/dl Creatinine 1.20 0.60-1.20 mg/dl Est Creatinine Clear Calc Drug Dose 32.6 ml/min Estimated GFR () 51.6 Estimated GFR (Non- 44.5 BUN/Creatinine Ratio 37.4 10-20 Random Glucose 106 70-99 mg/dl Calcium Level 8.5 8.5-10.1 mg/dl Total Bilirubin 11.4 0.2-1 mg/dl Direct Bilirubin 4.7 0-0.2 mg/dl Aspartate Amino Transf (AST/SGOT) 36 15-37 U/L Alanine Aminotransferase (ALT/SGPT) 30 12-78 U/L Alkaline Phosphatase 70 45-117 U/L Ammonia 39.0 11-32 umol/L Total Protein 5.5 6.4-8.2 gm/dl Albumin 2.9 3.4-5.0 gm/dl Lipase 333 73-393 U/L
[2016-10-16] MEDS: CEFTRIAXONE SOD INJ 1 GM in DEXTROSE 5% ADD-VANTAGE 50ML 50 ML IV SCH (13:11)
[2016-10-17] VITALS (18 sets, daily range): BP systolic 100–133; BP diastolic 41–61; PULSE 71–82; TEMP 36.4–36.8; O2SAT 97–100
[2016-10-17] MEDS: OCTREOTIDE ACETATE INJ 500 MCG in NSS 100ML IV SCH ×3 (01:45→22:58)
[2016-10-17] MEDS: PANTOprazole INJ 40 MG in DEXTROSE 5% 100ML IV SCH (03:09)
[2016-10-17 05:47] LABS: MEAN CELL VOLUME 96.9 fL (80-100); MEAN CORPUSCULAR HEMOGLOBIN 31.7 pg (25-34); MEAN CORPUSCULAR HGB CONC 32.7 g/dl (32-36); MEAN PLATELET VOLUME 10.7 fL (7.4-10.4); PLATELET COUNT 118 K/uL (130-400); RED BLOOD COUNT 2.27 M/uL (4.2-5.4); WHITE BLOOD COUNT 11.35 K/uL (4.8-10.8)
[2016-10-17 06:30] LABS: BUN/CREATININE RATIO 29.4 (10-20); CALCIUM 8.2 mg/dl (8.5-10.1); CREATININE 0.94 mg/dl (0.60-1.20); POTASSIUM 3.5 mmol/L (3.5-5.1)
--- NOTE | 2016-10-17 07:35 | Gastroenterology Progress Note ---
Progress Note Date of Service: October 17, 2016 Subjective Pt evaluation today including: conversation w/ patient, physical exam, chart review, lab review Pt was seen and evaluated this AM. Has no complaints. She tells me her stools are no longer black, but they were loose and red this morning. She had red jello yesterday x 2. Denies any symptoms. No epigastric pain, nausea,abdominal pain or rectal pain. She states she feels great and wants to eat regular food. AM labs significant for improving kidney function and stable liver labs. HGB with a 0.5 drop since yesterday. Review of Systems Constitutional: No chills, No fever Respiratory: No cough, No shortness of breath Cardiac: No chest pain, No edema Abdomen: No GI bleeding, No constipation, No diarrhea, No nausea, No pain, No vomiting Medications Current Inpatient Medications Medications (Trade) Dose Ordered Sig/Hernandez Route Start Time Stop Time Status Last Admin Dose Admin Pantoprazole Sodium 40 mg/ Dextrose 100 ml @ 20 mls/hr Q5H IV 10/14/16 10:45 11/13/16 10:44 10/17/16 03:09 20 MLS/HR Octreotide Acetate 500 mcg/ Sodium Chloride 105 ml @ 10 mls/hr [id number] IV 10/14/16 10:30 11/13/16 10:29 10/17/16 01:45 10 MLS/HR Ceftriaxone Sodium/Dextrose (Rocephin Inj/ Dextrose Add-[place] 50ML) 50 ml @ 100 mls/hr Q24H IV 10/14/16 13:00 10/24/16 12:59 10/16/16 13:11 100 MLS/HR Ondansetron HCl (Zofran Inj) 4 mg Q6H PRN IV 10/14/16 11:15 11/13/16 11:14 10/14/16 12:22 4 MG Heparin Sodium (Porcine) (Heparin 10 Unit/ ml 5 ml Flush) 5 ml PRN PRN FLUSH 10/15/16 01:45 11/14/16 01:44 Lactulose (Chronulac Syrup) 30 gm BID PO 10/15/16 10:00 11/15/16 09:59 10/16/16 19:58 30 GM Rifaximin (Xifaxan Tab) 550 mg BID PO 10/15/16 10:00 11/14/16 09:59 10/16/16 19:59 550 MG Objective Vital Signs Date Time Temp Pulse Resp B/P Pulse Ox O2 Delivery O2 Flow Rate FiO2 10/17/16 04:00 Room Air 10/17/16 03:00 36.7 75 16 114/43 97 Room Air 10/17/16 00:00 Room Air 10/16/16 23:06 36.5 83 18 129/53 98 Room Air 10/16/16 20:00 Room Air 10/16/16 19:21 36.9 77 18 113/42 98 Room Air 10/16/16 16:00 98 Room Air 10/16/16 15:44 36.7 82 20 122/56 98 Room Air 10/16/16 12:00 97 Room Air 10/16/16 10:42 36.3 78 19 107/43 97 Room Air 10/16/16 08:00 97 Room Air Physical Exam General Appearance: no apparent distress Eyes: PERRL ENT: hearing grossly normal Neck: supple, trachea midline Respiratory/Chest: lungs clear Cardiovascular: regular rate, rhythm Abdomen: normal bowel sounds, non tender, no organomegaly, + distended Neurologic/Psych: alert, normal mood/affect, oriented x 3 Skin: + jaundice Laboratory Results Last 24 Hours Test 10/16/16 11:22 10/17/16 04:50 Bedside Glucose 156 mg/dl White Blood Count 11.35 K/uL Red Blood Count 2.27 M/uL Hemoglobin 7.2 g/dL Hematocrit 22.0 % Mean Corpuscular Volume 96.9 fL Mean Corpuscular Hemoglobin 31.7 pg Mean Corpuscular Hemoglobin Concent 32.7 g/dl RDW Standard Deviation 67.9 fL RDW Coefficient of Variation 20.0 % Platelet Count 118 K/uL Mean Platelet Volume 10.7 fL Sodium Level 138 mmol/L Potassium Level 3.5 mmol/L Chloride Level 105 mmol/L Carbon Dioxide Level 25 mmol/L Anion Gap 8.0 mmol/L Blood Urea Nitrogen 28 mg/dl Creatinine 0.94 mg/dl Est Creatinine Clear Calc Drug Dose 41.6 ml/min Estimated GFR () 69.3 Estimated GFR (Non- 59.8 BUN/Creatinine Ratio 29.4 Random Glucose 100 mg/dl Calcium Level 8.2 mg/dl Total Bilirubin 10.4 mg/dl Aspartate Amino Transf (AST/SGOT) 31 U/L Alanine Aminotransferase (ALT/SGPT) 24 U/L Alkaline Phosphatase 68 U/L Total Protein 5.3 gm/dl Albumin 2.7 gm/dl Globulin 2.6 gm/dl Albumin/Globulin Ratio 1.0 Assessment and Plan Ms. Landry is a 76 year old female with acute GI hemorrhage with suspected esophageal variceal bleed - EGD with banding on Friday without any evidence of ongoing acute bleeding. Pt HGB is being watched and she is being transfused PRN Monitor for S/S of GI blood loss Trend H&H Transfuse as needed - HGB goal of 7 Stool culture Completed Octreotide gtt x 3 days Completed Protonix gtt x 3 days Please start omeprazole 40 BID PO Rocephin x 7 days for GI prophylaxis Lactulose 30 gm BID Xifaxan 550 mg BID Clear liquids today --> advanced to mechanical soft NO RED JELLO PLEASE MELD 25 Call with any questions. ATTESTATION: I have performed a history and physical examination of this patient and reviewed the electronic record. Specifically, on physical examination there is no confusion. I have discussed the case with FABI Ho. The above note reflects my findings, conclusions, and recommendations. Brennon Mazariegos MD
[2016-10-17] MEDS: RIFAXIMIN TAB 550 MG TAB PO SCH ×2 (08:00→20:55)
[2016-10-17] MEDS: LACTULOSE SYRUP 30 GM/45 ML UDP PO SCH ×2 (08:01→20:55)
[2016-10-17] MEDS: FUROSEMIDE 80 MG TAB PO SCH ×2 (09:21→16:48)
[2016-10-17] MEDS: PANTOprazole SOD 40 MG TAB PO SCH ×2 (09:21→20:55)
[2016-10-17] MEDS: SPIRONOLACTONE 100 MG TAB PO SCH ×2 (09:21→16:49)
--- NOTE | 2016-10-17 10:21 | Progress Note ---
Internal Med Progress Note Date of Service: October 17, 2016. Provider Documentation: SUBJECTIVE: Patient is feeling better and eager to be discharged. Had stools, loose- red in color. Had red jello x 2 yesterday. No more hematemesis. No abd pain, nausea, vomiting, fever, chills On clear liquids- tolerating it well OBJECTIVE: Vital Signs-as noted below Exam: General-AAOX3, no distress; Frail Eyes-Icterus + Neck-Supple Lungs-AEBE, no wheezing Heart- Murmur + harsh Abdomen-Soft, Distended +, BS present Extremities-B/L Edema Left > Right Neuro-No focal deficits Skin- Yellowish discoloration of skin + Lab data as noted below. ASSESSMENT & PLAN: ACUTE BLOOD LOSS ANEMIA DUE TO UPPER GI BLEED : Patient presented with hematemesis and black stools x 5 days; in the ER, found to have hgb 5.8, BP borderline, mild tachycardia - S/P Endoscopy on 10/14/16- Non bleeding Grade II esophageal varices S/P 2 Bands in lower third of esophagus, Hiatal Hernia, Mild portal gastroenteropathy - S/P 3 units PRBC transfusion- Hb > 7.2 today --> Will transfuse 2 more units today - IV Protonix drip x 3 days (Day 3), IV Octreotide drip (Day 3/3)--> discontinue and change it to PO Protonix BID - Clear liquid --> Advance to Mechanical soft diet today. Discontinued IVF as hx of -on 11/15/16. Restarted lasix today - IV Rocephin x Day 4/ 7 days for SBP prophylaxis - GI on board- Discussed today--> Plan is for second EGD with banding next week outpatient ALCOHOLIC CIRRHOSIS (MELD 25) - LFTs and INR near baseline from prior admission - Held diuretics--> Restart today- Lasix 80 mg bid/Spironolactone 150 mg PO BID (prior to home medications). Continue with Lactulose (to hold if > 3 BMS/Day) , and Xifaxan. . - Patient continues to abstain from alcohol DVT PROPHYLAXIS - SCDs due to bleeding, elevated INR CODE STATUS - Patient is a full code as per my discussion with her. DISPO - Discussed with over phone (in [place]) ---> concerned about her going home as lives by herself. Patient adamant about going home and refusing to go to any NH. Has been a hoarder--> had evaluation done per SS note by office of aging - PT/OT ordered - Okay to transfer to med-surg - Likely discharge in AM Vital Signs: Date Time Temp Pulse Resp B/P Pulse Ox O2 Delivery O2 Flow Rate FiO2 10/17/16 07:39 36.8 76 20 100/41 97 Room Air 10/17/16 04:00 Room Air 10/17/16 03:00 36.7 75 16 114/43 97 Room Air 10/17/16 00:00 Room Air 10/16/16 23:06 36.5 83 18 129/53 98 Room Air 10/16/16 20:00 Room Air 10/16/16 19:21 36.9 77 18 113/42 98 Room Air 10/16/16 16:00 98 Room Air 10/16/16 15:44 36.7 82 20 122/56 98 Room Air 10/16/16 12:00 97 Room Air 10/16/16 10:42 36.3 78 19 107/43 97 Room Air Lab Results: Results Past 24 Hours Test 10/16/16 11:22 10/17/16 04:50 Range/Units Bedside Glucose 156 70-90 mg/dl White Blood Count 11.35 4.8-10.8 K/uL Red Blood Count 2.27 4.2-5.4 M/uL Hemoglobin 7.2 12.0-16.0 g/dL Hematocrit 22.0 37-47 % Mean Corpuscular Volume 96.9 80-100 fL Mean Corpuscular Hemoglobin 31.7 25-34 pg Mean Corpuscular Hemoglobin Concent 32.7 32-36 g/dl RDW Standard Deviation 67.9 36.4-46.3 fL RDW Coefficient of Variation 20.0 11.5-14.5 % Platelet Count 118 130-400 K/uL Mean Platelet Volume 10.7 7.4-10.4 fL Sodium Level 138 136-145 mmol/L Potassium Level 3.5 3.5-5.1 mmol/L Chloride Level 105 98-107 mmol/L Carbon Dioxide Level 25 21-32 mmol/L Anion Gap 8.0 3-11 mmol/L Blood Urea Nitrogen 28 7-18 mg/dl Creatinine 0.94 0.60-1.20 mg/dl Est Creatinine Clear Calc Drug Dose 41.6 ml/min Estimated GFR () 69.3 Estimated GFR (Non- 59.8 BUN/Creatinine Ratio 29.4 10-20 Random Glucose 100 70-99 mg/dl Calcium Level 8.2 8.5-10.1 mg/dl Total Bilirubin 10.4 0.2-1 mg/dl Aspartate Amino Transf (AST/SGOT) 31 15-37 U/L Alanine Aminotransferase (ALT/SGPT) 24 12-78 U/L Alkaline Phosphatase 68 45-117 U/L Total Protein 5.3 6.4-8.2 gm/dl Albumin 2.7 3.4-5.0 gm/dl Globulin 2.6 2.5-4.0 gm/dl Albumin/Globulin Ratio 1.0 0.9-2 Microbiology Results 10/17/16 Shiga Toxin Test, [facility] Batch Pending 10/17/16 Stool Culture, Yarelis Batch Pending
[2016-10-17] MEDS: CEFTRIAXONE SOD INJ 1 GM in DEXTROSE 5% ADD-VANTAGE 50ML 50 ML IV SCH (13:07)
[2016-10-18 07:39] VITALS: BP 103/49; PULSE 76; TEMP 36.5; O2SAT 95
[2016-10-18 08:07] LABS: HEMATOCRIT 30.7 % (37-47); MEAN CELL VOLUME 94.2 fL (80-100); MEAN CORPUSCULAR HEMOGLOBIN 32.2 pg (25-34); MEAN CORPUSCULAR HGB CONC 34.2 g/dl (32-36); MEAN PLATELET VOLUME 10.7 fL (7.4-10.4); PLATELET COUNT 138 K/uL (130-400); RED BLOOD COUNT 3.26 M/uL (4.2-5.4)
[2016-10-18 08:34] LABS: BUN/CREATININE RATIO 17.1 (10-20); POTASSIUM 3.4 mmol/L (3.5-5.1)
[2016-10-18] MEDS: SPIRONOLACTONE 100 MG TAB PO SCH (08:34)
[2016-10-18] MEDS: FUROSEMIDE 80 MG TAB PO SCH (08:35)
[2016-10-18] MEDS: PANTOprazole SOD 40 MG TAB PO SCH (08:36)
[2016-10-18] MEDS: RIFAXIMIN TAB 550 MG TAB PO SCH (08:37)
[2016-10-18] MEDS: LACTULOSE SYRUP 30 GM/45 ML UDP PO SCH (08:38)
[2016-10-18] MEDS: OCTREOTIDE ACETATE INJ 500 MCG in NSS 100ML IV SCH (09:00)
[2016-10-18 09:01] LABS: CALCIUM 8.3 mg/dl (8.5-10.1)
[2016-10-18] MEDS ORDERED: NURSING VERBAL MED ORDER ONE (09:30)
[2016-10-18] MEDS ORDERED: POTASSIUM CHLORIDE 10 MEQ TABCR PO STA (10:44)
--- NOTE | 2016-10-18 10:57 | Gastroenterology Progress Note ---
Progress Note Date of Service: October 18, 2016 Subjective Pt evaluation today including: conversation w/ patient, physical exam Pt seen and examined this AM. Tolerated diet well. Tells me her BM this morning was light brown. Making urine - no urinary symptoms. Has no complaints. She is getting discharged this AM. HGB 10.5 after 2 units of PRBC Denies fever, chills, chest pain, SOB, abdominal pain, nausea, vomiting, black/ bloody stools. Review of Systems Constitutional: No chills, No fever Respiratory: No cough, No shortness of breath Cardiac: No chest pain, No edema Abdomen: No GI bleeding, No constipation, No diarrhea, No nausea, No pain, No vomiting Medications Current Inpatient Medications Medications (Trade) Dose Ordered Sig/Hernandez Route Start Time Stop Time Status Last Admin Dose Admin Ceftriaxone Sodium/Dextrose (Rocephin Inj/ Dextrose Add-[place] 50ML) 50 ml @ 100 mls/hr Q24H IV 10/14/16 13:00 10/24/16 12:59 10/17/16 13:07 100 MLS/HR Ondansetron HCl (Zofran Inj) 4 mg Q6H PRN IV 10/14/16 11:15 11/13/16 11:14 10/14/16 12:22 4 MG Heparin Sodium (Porcine) (Heparin 10 Unit/ ml 5 ml Flush) 5 ml PRN PRN FLUSH 10/15/16 01:45 11/14/16 01:44 Lactulose (Chronulac Syrup) 30 gm BID PO 10/15/16 10:00 11/15/16 09:59 10/18/16 08:38 30 GM Rifaximin (Xifaxan Tab) 550 mg BID PO 10/15/16 10:00 11/14/16 09:59 10/18/16 08:37 550 MG Furosemide (Lasix Tab) 80 mg BID17 PO 10/17/16 09:00 11/16/16 08:59 10/18/16 08:35 80 MG Spironolactone (Aldactone Tab) 150 mg BID17 PO 10/17/16 09:00 11/16/16 08:59 10/18/16 08:34 150 MG Pantoprazole Sodium (Protonix Tab) 40 mg BID PO 10/17/16 09:00 11/16/16 08:59 10/18/16 08:36 40 MG Objective Vital Signs Date Time Temp Pulse Resp B/P Pulse Ox O2 Delivery O2 Flow Rate FiO2 10/18/16 07:39 36.5 76 17 103/49 95 Room Air 10/18/16 07:32 Room Air 10/18/16 00:12 Room Air 10/17/16 23:05 36.6 79 16 109/45 98 Room Air 10/17/16 18:47 36.6 77 18 117/53 98 10/17/16 17:30 36.5 79 18 133/47 99 10/17/16 17:00 36.5 73 18 116/58 99 10/17/16 16:46 36.5 74 17 115/54 99 10/17/16 16:29 Room Air 10/17/16 16:26 36.5 73 18 115/56 99 10/17/16 16:11 36.6 74 18 114/53 99 10/17/16 15:30 36.5 72 18 124/61 100 10/17/16 15:00 36.5 71 18 120/44 100 Room Air 10/17/16 15:00 36.5 71 18 120/44 100 10/17/16 14:30 36.5 76 16 116/53 10/17/16 14:17 36.4 76 16 119/50 98 10/17/16 13:59 36.6 76 16 117/51 99 10/17/16 13:37 36.4 82 18 132/54 10/17/16 12:00 Room Air 10/17/16 11:54 36.7 72 16 124/47 97 Room Air 10/17/16 11:22 36.8 76 20 97 3.0 Physical Exam General Appearance: no apparent distress (pt is packing up her belongings) Eyes: PERRL ENT: hearing grossly normal Neck: supple Respiratory/Chest: lungs clear, no accessory muscle use Cardiovascular: regular rate, rhythm, no JVD Abdomen: normal bowel sounds, non tender, soft, no organomegaly, no pulsatile mass, + distended (non tense ascites) Neurologic/Psych: alert, normal mood/affect, oriented x 3 Skin: warm/dry, + jaundice Laboratory Results Last 24 Hours Test 10/18/16 07:17 White Blood Count 14.60 K/uL Red Blood Count 3.26 M/uL Hemoglobin 10.5 g/dL Hematocrit 30.7 % Mean Corpuscular Volume 94.2 fL Mean Corpuscular Hemoglobin 32.2 pg Mean Corpuscular Hemoglobin Concent 34.2 g/dl RDW Standard Deviation 67.3 fL RDW Coefficient of Variation 21.1 % Platelet Count 138 K/uL Mean Platelet Volume 10.7 fL Sodium Level 132 mmol/L Potassium Level 3.4 mmol/L Chloride Level 98 mmol/L Carbon Dioxide Level 24 mmol/L Anion Gap 10.0 mmol/L Blood Urea Nitrogen 17 mg/dl Creatinine 1.00 mg/dl Est Creatinine Clear Calc Drug Dose 39.1 ml/min Estimated GFR () 64.3 Estimated GFR (Non- 55.5 BUN/Creatinine Ratio 17.1 Random Glucose 151 mg/dl Calcium Level 8.3 mg/dl Assessment and Plan Ms. Landry is a 76 year old female with acute GI hemorrhage with suspected esophageal variceal bleed - EGD with banding on Friday without any evidence of ongoing acute bleeding. Pt HGB is being watched and she is being transfused PRN While admitted: Monitor for S/S of GI blood loss Trend H&H Transfuse as needed - HGB goal of 7 Stool culture Completed Octreotide gtt x 3 days Completed Protonix gtt x 3 days Please start omeprazole 40 BID PO Rocephin x 7 days for GI prophylaxis Lactulose 30 gm BID Xifaxan 550 mg BID Mechanical soft diet At discharge: Compete abstinence from ETOH Continue ABX x 7 days Follow up EGD with banding next week outpatient Please return our call to schedule this Follow up with GI appt in [place] - Dr. Minaya ER immediately with any s/s of GI bleeding Lasix 80 mg bid Spironolactone 150 mg PO BID Xifaxan 550 BID Lactulose 30 gm for 2-3 BMs daily MELD 24 Call with any questions.
--- NOTE | 2016-10-18 10:57 | Progress Note ---
Internal Med Progress Note Date of Service: October 18, 2016. Provider Documentation: SUBJECTIVE: Patient is feeling better and eager to be discharged. Already dressed up to leave No more hematemesis, melena. BMs controlled- 2-3 /day. No abd pain, nausea, vomiting, fever, chills Tolerating diet well OBJECTIVE: Vital Signs-as noted below Exam: General-AAOX3, no distress; Frail Eyes-Icterus + Neck-Supple Lungs-AEBE, no wheezing Heart- Murmur + harsh Abdomen-Soft, Abdomen Distended +, BS present Extremities-B/L Edema Left > Right Neuro-No focal deficits Skin- Yellowish discoloration of skin + Lab data as noted below. ASSESSMENT & PLAN: ACUTE BLOOD LOSS ANEMIA DUE TO UPPER GI BLEED : Patient presented with hematemesis and black stools x 5 days; in the ER, found to have hgb 5.8, BP borderline, mild tachycardia. No more melena/Hematemesis - S/P Endoscopy on 10/14/16- Non bleeding Grade II esophageal varices S/P 2 Bands in lower third of esophagus, Hiatal Hernia, Mild portal gastroenteropathy - S/P 5 units PRBC transfusion since admission. HB stable at 10.5 today - IV Protonix drip x 3 days (Day 3), IV Octreotide drip (Day 3) --> Changed to PO Protonix per GI--> Omeprazole 40 mg PO BID on discharge - Mechanical soft diet - tolerating well. S/P IVF --> Restarted Lasix / Spironolactone PO - IV Rocephin x Day 4 / 7 days for SBP prophylaxis---> Change to Ciprofloxacin x 3 more days to complete 7 days prophylaxis course - GI on board- Cleared for discharge -> Plan is for second EGD with banding next week outpatient ALCOHOLIC CIRRHOSIS (MELD 25) : - LFTs and INR near baseline from prior admission - Held diuretics--> Restarted on 10/17/16 - Lasix 80 mg bid/Spironolactone 150 mg PO BID (prior to home medications)--> Tolerating it well. Continue with Lactulose (to hold if > 3 BMS/Day) and Xifaxan 550 mg BID. . - Patient continues to abstain from alcohol DVT PROPHYLAXIS - SCDs due to bleeding, elevated INR CODE STATUS - Patient is a full code as per my discussion with her. DISPO - Discussed with over phone (in [place]) ---> concerned about her going home as lives by herself. Patient adamant about going home and refusing to go to any NH. Has been a hoarder--> had evaluation done per SS note by office of aging- okay to be discharged home - PT/OT - doing well. Home PT script given. - Eager to be discharged and already dressed up. - Discharge- Home with HHS and PT Vital Signs: Date Time Temp Pulse Resp B/P Pulse Ox O2 Delivery O2 Flow Rate FiO2 10/18/16 07:39 36.5 76 17 103/49 95 Room Air 10/18/16 07:32 Room Air 10/18/16 00:12 Room Air 10/17/16 23:05 36.6 79 16 109/45 98 Room Air 10/17/16 18:47 36.6 77 18 117/53 98 10/17/16 17:30 36.5 79 18 133/47 99 10/17/16 17:00 36.5 73 18 116/58 99 10/17/16 16:46 36.5 74 17 115/54 99 10/17/16 16:29 Room Air 10/17/16 16:26 36.5 73 18 115/56 99 10/17/16 16:11 36.6 74 18 114/53 99 10/17/16 15:30 36.5 72 18 124/61 100 10/17/16 15:00 36.5 71 18 120/44 100 Room Air 10/17/16 15:00 36.5 71 18 120/44 100 10/17/16 14:30 36.5 76 16 116/53 10/17/16 14:17 36.4 76 16 119/50 98 10/17/16 13:59 36.6 76 16 117/51 99 10/17/16 13:37 36.4 82 18 132/54 10/17/16 12:00 Room Air 10/17/16 11:54 36.7 72 16 124/47 97 Room Air 10/17/16 11:22 36.8 76 20 97 3.0 Lab Results: Results Past 24 Hours Test 10/18/16 07:17 Range/Units White Blood Count 14.60 4.8-10.8 K/uL Red Blood Count 3.26 4.2-5.4 M/uL Hemoglobin 10.5 12.0-16.0 g/dL Hematocrit 30.7 37-47 % Mean Corpuscular Volume 94.2 80-100 fL Mean Corpuscular Hemoglobin 32.2 25-34 pg Mean Corpuscular Hemoglobin Concent 34.2 32-36 g/dl RDW Standard Deviation 67.3 36.4-46.3 fL RDW Coefficient of Variation 21.1 11.5-14.5 % Platelet Count 138 130-400 K/uL Mean Platelet Volume 10.7 7.4-10.4 fL Sodium Level 132 136-145 mmol/L Potassium Level 3.4 3.5-5.1 mmol/L Chloride Level 98 98-107 mmol/L Carbon Dioxide Level 24 21-32 mmol/L Anion Gap 10.0 3-11 mmol/L Blood Urea Nitrogen 17 7-18 mg/dl Creatinine 1.00 0.60-1.20 mg/dl Est Creatinine Clear Calc Drug Dose 39.1 ml/min Estimated GFR () 64.3 Estimated GFR (Non- 55.5 BUN/Creatinine Ratio 17.1 10-20 Random Glucose 151 70-99 mg/dl Calcium Level 8.3 8.5-10.1 mg/dl
[2016-10-18] MEDS ORDERED: OMEP40CA41 PO (11:00)
[2016-10-18] MEDS ORDERED: LACT10SO17 PO (11:00)
[2016-10-18] MEDS ORDERED: CIPR-255 PO (11:00)
--- NOTE | 2016-10-18 11:04 | Discharge Instructions ---
Discharge Instructions Date of Service October 18, 2016. Admission Reason for Admission: Upper Gi Bleed Discharge Discharge Diagnosis / Problem: 1. Acute blood loss anemia secondary to Upper GI bleeding Discharge Goals Goal(s): Improve disease control, Therapeutic intervention, Prevent Disease Progression Activity Recommendations Activity Limitations: per Instructions/Follow-up section (Home PT recommended) . Instructions / Follow-Up Instructions / Follow-Up MEDICATION CHANGES: 1. New medication: Omeprazole 40 mg PO BID 2. New medication: Ciprofloxacin 500 mg PO BID x 3 more days to complete course of 7 days for SBP prophylaxis 3. Decrease Lactulose to 30 gm BID ---> Please re adjust (may go up to TID) as goal Bowel movements-- 2-3 per day to prevent hepatic encephalopathy DIET: Low salt diet, Fluid restriction to 1500 cc FOLLOW UP 1. Follow up with Dr Hendrix on 10/25/16 at 12:15 PM 2. Follow up with GI - need an EGD with banding- second time in 1-2 weeks per GI PT: Home PT recommended Current Hospital Diet Patient's current hospital diet: Regular Diet Discharge Diet Recommended Diet: Low Sodium Diet (2gm Na) Fluid Restriction: 1500 ml (6 cups) Procedures Procedures Performed: ESOPHAGOGASTRODUODENOSCOPY WITH BANDING ON 10/15/16 Pending Studies Studies pending at discharge: no Medical Emergencies . Who to Call and When: Medical Emergencies: If at any time you feel your situation is an emergency, please call 911 immediately. . Non-Emergent Contact Non-Emergency issues call your: Primary Care Provider . . "Provider Documentation" section prepared by Hanny Russell. . VTE Core Measure Inpt VTE Proph given/why not?: T.E.D. Stockings, SCD's, Contraindicated (RE: GI BLEEDING/COAGULOPATHY)
--- NOTE | 2016-10-18 11:07 | Discharge Summary ---
Discharge Summary Date of Service October 18, 2016. Discharge Summary Admission Date: October 14, 2016 at 11:18 Discharge Date: October 18, 2016 Discharge Disposition: Home with services (with PT) Principal Diagnosis: 1. Acute blood loss anemia secondary to Upper GI bleeding 2. S/P EGD with esophageal varices/Banding 3. Alcoholic cirrhosis with coagulopathy/ascites Procedures: S/P Endoscopy on 10/14/16- Non bleeding Grade II esophageal varices S/P 2 Bands in lower third of esophagus, Hiatal Hernia, Mild portal gastroenteropathy ICU monitoring Tele monitoring 5 units of PRBCs transfusions IV Protonix drip x 3 days IV Octreotide drip x 3 days CXR PT/OT Consultations: Director Of Slot Operations while in ICU GI Pending Studies/Follow-Up: . Instructions / Follow-Up Instructions / Follow-Up MEDICATION CHANGES: 1. New medication: Omeprazole 40 mg PO BID 2. New medication: Ciprofloxacin 500 mg PO BID x 3 more days to complete course of 7 days for SBP prophylaxis 3. Decrease Lactulose to 30 gm BID ---> Please re adjust (may go up to TID) as goal Bowel movements-- 2-3 per day to prevent hepatic encephalopathy DIET: Low salt diet, Fluid restriction to 1500 cc FOLLOW UP 1. Follow up with Dr Hendrix on 10/25/16 at 12:15 PM 2. Follow up with GI - need an EGD with banding- second time in 1-2 weeks per GI PT: Home PT recommended Medication Reconciliation New Medications: Ciprofloxacin Hcl (Cipro) 500 Mg Tab 1 TAB PO BID for 3 Days, #6 TAB Omeprazole (Prilosec) 40 Mg Cap 1 CAP PO BID for 30 Days, #60 CAP 3 Refills Changed Medications: Lactulose (Chronulac) 10 Gm/15 Ml Syrp 30 ML PO BID for 30 Days (Changed from: TID) Continued Medications: Atorvastatin (Lipitor) 20 Mg Tab 20 MG PO HS Folic Acid (Folvite) 1 Mg Tab 1 MG PO DAILY Furosemide (Lasix) 80 Mg Tab 80 MG PO BID Multivitamins (Daily Sae) 1 Tab Tab 1 TAB PO QAM for 30 Days, #30 TAB Rifaximin (Xifaxan) 550 Mg Tab 550 MG PO BID for 30 Days, #60 TAB Spironolactone (Aldactone) 100 Mg Tab 150 MG PO BID for 30 Days, #90 TAB Thiamine HCl (Vitamin B-1) 100 Mg Tab 100 MG PO QAM for 30 Days, #30 TAB Admission Information HPI (per Admitting provider): 76 year old female who presents to the ER with reports of vomiting blood. She reports her symptoms have been going on for the past 5 days. Patient was recently admitted to [facility] 09/20 - 09/24 for volume overload due to alcoholic liver cirrhosis. Patient was treated with IV Lasix and albumin. At discharge, her spironolactone dose was increased. Patient reports she had been doing well up until 5 days ago. She reports multiple episodes of vomiting dark red blood and having dark diarrheal stools. She reports some generalized abdominal pain from the vomiting. She reports her lower extremity edema is improving. She notes mildly worsening exertional shortness of breath. She denies chest pain and shortness of breath. No lightheadedness, dizziness, diaphoresis, or syncope. She denies fever and chills. No urinary symptoms. In the ER, patient is found to have hgb 5.8. BPs are borderline and she is tachycardic in the 110s. She was treated with IVF, IV Protonix, IV octreotide, IV Pepcid, and Zofran. GI was notified by the ER and she is going emergently to the OR for an EGD. Physical Exam (per Admitting): General Appearance: no apparent distress Head: normocephalic Eyes: + pertinent finding (scleral icterus) ENT: hearing grossly normal Neck: supple, no JVD Respiratory/Chest: lungs clear, normal breath sounds, no respiratory distress Cardiovascular: regular rate, rhythm, no edema, normal peripheral pulses Abdomen/GI: non tender, soft, + distended Extremities/Musculoskelatal: normal inspection, no calf tenderness Neurologic/Psych: no motor/sensory deficits, alert, normal mood/affect, oriented x 3 Skin: + jaundice Hospital Course ACUTE BLOOD LOSS ANEMIA DUE TO UPPER GI BLEED : Patient presented with hematemesis and black stools x 5 days; in the ER, found to have hgb 5.8, BP borderline, mild tachycardia. No more melena/Hematemesis - S/P Endoscopy on 10/14/16- Non bleeding Grade II esophageal varices S/P 2 Bands in lower third of esophagus, Hiatal Hernia, Mild portal gastroenteropathy - S/P 5 units PRBC transfusion since admission. HB stable at 10.5 today - IV Protonix drip x 3 days (Day 3), IV Octreotide drip (Day 3) --> Changed to PO Protonix per GI--> Omeprazole 40 mg PO BID on discharge - Mechanical soft diet - tolerating well. S/P IVF --> Restarted Lasix / Spironolactone PO - IV Rocephin x Day 4 / 7 days for SBP prophylaxis---> Change to Ciprofloxacin x 3 more days to complete 7 days prophylaxis course - GI on board- Cleared for discharge -> Plan is for second EGD with banding next week outpatient ALCOHOLIC CIRRHOSIS (MELD 25) : - LFTs and INR near baseline from prior admission - Held diuretics--> Restarted on 10/17/16 - Lasix 80 mg bid/Spironolactone 150 mg PO BID (prior to home medications)--> Tolerating it well. Continue with Lactulose (to hold if > 3 BMS/Day) and Xifaxan 550 mg BID. . - Patient continues to abstain from alcohol DVT PROPHYLAXIS - SCDs due to bleeding, elevated INR CODE STATUS - Patient is a full code as per my discussion with her. DISPO - Discussed with over phone (in [place]) ---> concerned about her going home as lives by herself. Patient adamant about going home and refusing to go to any NH. Has been a hoarder--> had evaluation done per SS note by office of aging- okay to be discharged home - PT/OT - doing well. Home PT script given. - Eager to be discharged and already dressed up. - Discharge- Home with [facility] and PT Total time spent on discharge = 40 MINUTES This includes examination of the patient, discharge planning, medication reconciliation, and communication with other providers. Discharge Instructions Activity Recommendations Activity Limitations: per Instructions/Follow-up section (Home PT recommended) . Instructions / Follow-Up Instructions / Follow-Up MEDICATION CHANGES: 1. New medication: Omeprazole 40 mg PO BID 2. New medication: Ciprofloxacin 500 mg PO BID x 3 more days to complete course of 7 days for SBP prophylaxis 3. Decrease Lactulose to 30 gm BID ---> Please re adjust (may go up to TID) as goal Bowel movements-- 2-3 per day to prevent hepatic encephalopathy DIET: Low salt diet, Fluid restriction to 1500 cc FOLLOW UP 1. Follow up with Dr Hendrix on 10/25/16 at 12:15 PM 2. Follow up with GI - need an EGD with banding- second time in 1-2 weeks per GI PT: Home PT recommended Current Hospital Diet Patient's current hospital diet: Regular Diet Discharge Diet Recommended Diet: Low Sodium Diet (2gm Na) Fluid Restriction: 1500 ml (6 cups) Procedures Procedures Performed: ESOPHAGOGASTRODUODENOSCOPY WITH BANDING ON 10/15/16 Pending Studies Studies pending at discharge: no Medical Emergencies . Who to Call and When: Medical Emergencies: If at any time you feel your situation is an emergency, please call 911 immediately. . Non-Emergent Contact Non-Emergency issues call your: Primary Care Provider . . "Provider Documentation" section prepared by Hanny Russell. . VTE Core Measure Inpt VTE Proph given/why not?: T.E.D. Stockings, SCD's, Contraindicated (RE: GI BLEEDING/COAGULOPATHY)
[2016-10-18] MEDS: CEFTRIAXONE SOD INJ 1 GM in DEXTROSE 5% ADD-VANTAGE 50ML 50 ML IV SCH (12:50)
[2016-10-18 12:57] VITALS: BP 103/49; PULSE 76; TEMP 36.5; O2SAT 95
== END 2016-10-18 13:30 | disposition home health service (06) | DRG 369 ==
LOC: ENRESERVDT → ENRESERVTM → C.EDB 09:59 → C.MSICU 11:18 → C.2T 10-15 18:46 → C.MSN 10-17 11:51
PROVIDERS: ADMIT Internal Medicine; ATTEND Internal Medicine
PROC: 02HV33Z Insertion of Infusion Device into Superior Vena Cava, Percutaneous Approach (ICD-10-PCS; 2016-10-14)
PROC: 0DL Gastrointestinal System, Occlusion (ICD-10-PCS; principal; 2016-10-14 11:00)
DX: I85.11 Secondary esophageal varices with bleeding (principal); I50.22 Chronic systolic (congestive) heart failure; D68.4 Acquired coagulation factor deficiency; D62 Acute posthemorrhagic anemia; K44.9 Diaphragmatic hernia without obstruction or gangrene; K70.31 Alcoholic cirrhosis of liver with ascites; F10.21 Alcohol dependence, in remission; R00.0 Tachycardia, unspecified; Z79.899 Other long term (current) drug therapy